=== PATIENT | male | born 1995 | race Two or more races ===

== ENCOUNTER 2019-12-29 08:13 | Emergency (ER) | payer MEDICAID, OTHER ==
[~2019-12-29] VITALS: Ht 180.3 cm; Wt 77.1 kg
[2019-12-29 08:45] LABS: Urine WBC None Seen /hpf (0 - 3)
[2019-12-29 09:18] LABS: Urine Bacteria NONE SEEN /hpf (None Seen); Urine Blood Negative /uL (Negative); Urine Specific Gravity 1.021 (1.001-1.035)
[2019-12-29] MEDS ORDERED: SODIUM CHLORIDE 0.9% 1,000 ML IVB ONE (10:21)
[2019-12-29] MEDS ORDERED: PANTOPRAZOLE 40 MG/10 ML VIAL INJ IV STA (10:21)
[2019-12-29] MEDS ORDERED: ONDANSETRON HCL 4 MG/2 ML VIAL IV ONE (10:30)
[2019-12-29] MEDS ORDERED: MORPHINE SULFATE 4 MG/ML SYR/VIAL IV ONE (10:30)
[2019-12-29 11:54] LABS: Albumin 4.1 g/dL (3.4-5.0); Calcium 9.3 mg/dL (8.5-10.1); Potassium 4.4 mmol/L (3.5-5.1)
[2019-12-29 11:57] LABS: Bilirubin, Total 0.7 mg/dL (0.2-1.0); Total Protein 7.7 g/dL (6.4-8.2)
[2019-12-29 12:41] LABS: Basophils # (auto) 0.1 10 ^3/uL (0-0.2); Basophils % (auto) 0.5 % (0.0-2.0); Eosinophils # (auto) 0 10 ^3/uL (0-0.8); Eosinophils % (auto) 0.3 % (0.0-7.0); Hematocrit 47.3 % (41.0-53.0); Hemoglobin 16.1 g/dL (13.5-17.5); Lymphocytes % (auto) 7.6 % (10.0-50.0); Mean Corpuscular Hemoglobin 30.9 pg (28.0-32.0); Mean Corpuscular Volume 90.8 fL (80.0-100.0); Monocytes # (auto) 1.2 10 ^3/uL (0-1.3); Monocytes % (auto) 9.1 % (0.0-12.0); Neutrophils % (auto) 82.5 % (37.0-80.0); Nucleated Red Blood Cells % 0.1 %; Platelet Count (auto) 217 10^3/uL (140-450); Red Cell Distribution Width 13.2 % (11.8-14.3); White Blood Cell 13.3 10^3/uL (4.4-10.8)
[2019-12-29 14:00] VITALS: BP 124/80
== END 2019-12-29 16:15 | disposition home or self-care (01) ==
LOC: ER 08:13
DX: F12.188 Cannabis abuse with other cannabis-induced disorder (principal)
CPT/HCPCS: 36415; 74176; 80053; 80320; 81001; 83690; 85025; 96374; 96375; 99284; C9113; J2270; J2405; J7030

== ENCOUNTER 2020-01-27 07:10 | Emergency (ER) | payer MEDICAID ==
[~2020-01-27] VITALS: Ht 154.9 cm; Wt 68.9 kg
[2020-01-27] MEDS ORDERED: SODIUM CHLORIDE 0.9% 1,000 ML IV ONE (07:24)
[2020-01-27] MEDS ORDERED: PANTOPRAZOLE 40 MG/10 ML VIAL INJ IV ONE (07:30)
[2020-01-27 08:07] LABS: Amphetamine Screen, Urine NEGATIVE (NEGATIVE); Barbiturate Scree,Urine NEGATIVE (NEGATIVE); Benzodiazephine Screen, Urine NEGATIVE (NEGATIVE); Cannabinoid Screen, Urine POSITIVE (NEGATIVE); Cocaine Screen, Urine NEGATIVE (NEGATIVE); Opiate Scree,Urine NEGATIVE (NEGATIVE); Phencyclidine Screen, Urine NEGATIVE (NEGATIVE)
[2020-01-27 08:34] LABS: Basophils # (auto) 0 10 ^3/uL (0-0.2); Basophils % (auto) 0.8 % (0.0-2.0); Eosinophils # (auto) 0.1 10 ^3/uL (0-0.8); Eosinophils % (auto) 2.4 % (0.0-7.0); Hematocrit 48.4 % (41.0-53.0); Hemoglobin 16.7 g/dL (13.5-17.5); Lymphocytes # (auto) 1.5 10 ^3/uL (0.4-5.4); Lymphocytes % (auto) 26.9 % (10.0-50.0); Mean Corpuscular Hemoglobin 31.2 pg (28.0-32.0); Mean Corpuscular Hgb Conc. 34.5 g/dL (32.0-36.0); Mean Corpuscular Volume 90.3 fL (80.0-100.0); Monocytes # (auto) 0.7 10 ^3/uL (0-1.3); Monocytes % (auto) 11.8 % (0.0-12.0); Neutrophils # (auto) 3.3 10 ^3/uL (1.6-8.6); Neutrophils % (auto) 58.1 % (37.0-80.0); Platelet Count (auto) 216 10^3/uL (140-450); Red Blood Cells 5.37 10^6/uL (4.5-5.90); Red Cell Distribution Width 12.8 % (11.8-14.3); White Blood Cell 5.7 10^3/uL (4.4-10.8)
[2020-01-27 08:38] LABS: Albumin 4.2 g/dL (3.4-5.0); Calcium 8.7 mg/dL (8.5-10.1); Potassium 3.8 mmol/L (3.5-5.1)
[2020-01-27 08:42] LABS: BUN/Creatinine Ratio 10.4; Bilirubin, Total 0.3 mg/dL (0.2-1.0); Total Protein 7.9 g/dL (6.4-8.2)
[2020-01-27] MEDS ORDERED: ONDANSETRON HCL 4 MG/2 ML VIAL IV ONE (08:45)
[2020-01-27 08:50] LABS: Urine Bacteria NONE SEEN /hpf (None Seen); Urine Blood Negative /uL (Negative); Urine Specific Gravity 1.012 (1.001-1.035); Urine WBC <1 /hpf (0 - 3)
[2020-01-27 09:32] VITALS: BP 138/97
[2020-01-27] MEDS ORDERED: MORPHINE SULF INJ 2 MG/ML SYRINGE 1ML IV ONE (09:45)
[2020-01-27] MEDS ORDERED: PROCHLORPERAZINE EDISYLATE 5 MG/ML 2ML VIAL IV ONE (09:45)
== END 2020-01-27 10:20 | disposition home or self-care (01) ==
LOC: ER 07:10
DX: K29.70 Gastritis, unspecified, without bleeding (principal); E86.0 Dehydration; F12.90 Cannabis use, unspecified, uncomplicated
CPT/HCPCS: 36415; 74176; 80053; 80307; 81001; 83690; 85025; 96361; 96374; 96375; 99284; C9113; J0780; J2270; J2405

== ENCOUNTER → 2020-02-14 | Emergency (ER) | payer MEDICAID ==
[~2020-02-14] VITALS: Ht 180.3 cm; Wt 69.4 kg
[2020-02-14 02:04] VITALS: BP 149/99
== END | disposition left against medical advice (07) ==
LOC: ER 01:53
DX: R51 Headache (principal); Z53.21 Procedure and treatment not carried out due to patient leaving prior to being seen by health care provider
CPT/HCPCS: 70450; 70486; 72125

== ENCOUNTER 2020-03-03 15:02 | Emergency (ER) | payer MEDICAID ==
[~2020-03-03] VITALS: Ht 180.3 cm; Wt 70.8 kg
[2020-03-03 15:22] VITALS: BP 138/87
[2020-03-03 15:58] LABS: Basophils # (auto) 0 10 ^3/uL (0-0.2); Basophils % (auto) 0.6 % (0.0-2.0); Eosinophils # (auto) 0.1 10 ^3/uL (0-0.8); Eosinophils % (auto) 0.7 % (0.0-7.0); Hemoglobin 16.6 g/dL (13.5-17.5); Lymphocytes # (auto) 1.1 10 ^3/uL (0.4-5.4); Lymphocytes % (auto) 13.8 % (10.0-50.0); Mean Corpuscular Hgb Conc. 33.9 g/dL (32.0-36.0); Mean Corpuscular Volume 91.5 fL (80.0-100.0); Monocytes # (auto) 1.2 10 ^3/uL (0-1.3); Monocytes % (auto) 14.4 % (0.0-12.0); Neutrophils # (auto) 5.7 10 ^3/uL (1.6-8.6); Neutrophils % (auto) 70.5 % (37.0-80.0); Nucleated Red Blood Cells % 0.4 %; Platelet Count (auto) 248 10^3/uL (140-450); Red Blood Cells 5.36 10^6/uL (4.5-5.90); Red Cell Distribution Width 12.8 % (11.8-14.3)
[2020-03-03 16:14] LABS: Calcium 9.5 mg/dL (8.5-10.1); Potassium 3.8 mmol/L (3.5-5.1)
[2020-03-03 16:17] LABS: BUN/Creatinine Ratio 6.4; Bilirubin, Total 0.9 mg/dL (0.2-1.0); Total Protein 7.8 g/dL (6.4-8.2)
== END 2020-03-03 17:36 | disposition home or self-care (01) ==
LOC: ER 15:02
DX: K52.9 Noninfective gastroenteritis and colitis, unspecified (principal); Z88.8 Allergy status to other drugs, medicaments and biological substances; Z90.49 Acquired absence of other specified parts of digestive tract
CPT/HCPCS: 36415; 74176; 80053; 82150; 83690; 85025

== ENCOUNTER 2020-03-05 05:17 | Inpatient (IN) | payer MEDICAID ==
[~2020-03-05] VITALS: Ht 157.5 cm; Wt 77.1 kg
[2020-03-05] MEDS ORDERED: ONDANSETRON HCL 4 MG/2 ML VIAL IV ONE (06:15)
[2020-03-05] MEDS ORDERED: SODIUM CHLORIDE 0.9% 1,000 ML IV ONE (06:15)
[2020-03-05] MEDS ORDERED: MORPHINE SULFATE 4 MG/ML SYR/VIAL IV ONE (06:15)
[2020-03-05 06:29] LABS: Basophils # (auto) 0 10 ^3/uL (0-0.2); Basophils % (auto) 0.3 % (0.0-2.0); Eosinophils # (auto) 0.1 10 ^3/uL (0-0.8); Eosinophils % (auto) 0.8 % (0.0-7.0); Hematocrit 48.9 % (41.0-53.0); Hemoglobin 16.4 g/dL (13.5-17.5); Lymphocytes # (auto) 1.2 10 ^3/uL (0.4-5.4); Lymphocytes % (auto) 9.1 % (10.0-50.0); Mean Corpuscular Hemoglobin 30.1 pg (28.0-32.0); Mean Corpuscular Hgb Conc. 33.5 g/dL (32.0-36.0); Mean Corpuscular Volume 89.7 fL (80.0-100.0); Monocytes # (auto) 1.3 10 ^3/uL (0-1.3); Monocytes % (auto) 9.9 % (0.0-12.0); Neutrophils # (auto) 10.1 10 ^3/uL (1.6-8.6); Neutrophils % (auto) 79.9 % (37.0-80.0); Nucleated Red Blood Cells % 0.2 %; Platelet Count (auto) 249 10^3/uL (140-450); Red Blood Cells 5.45 10^6/uL (4.5-5.90); Red Cell Distribution Width 12.8 % (11.8-14.3); White Blood Cell 12.6 10^3/uL (4.4-10.8)
[2020-03-05 07:04] LABS: Blood Urea Nitrogen 10 mg/dL (7-18); Chloride 102 mmol/L (98-107); Glucose 106 mg/dL (74-106); Sodium 136 mmol/L (136-145)
[2020-03-05 07:13] LABS: Alanine Aminotransferase 61 U/L (16-61); Alkaline Phosphatase 95 U/L (45-117); Amylase 76 U/L (25-115); Anion Gap 12 (5-15); Aspartate Aminotransferase 26 U/L (15-37); BUN/Creatinine Ratio 12.5; Bilirubin, Total 0.4 mg/dL (0.2-1.0); Carbon Dioxide 22 mmol/L (21-32); GFR African American 153 mL/min; GFR Non-African American 126 mL/min; Lipase 79 U/L (73-393); Magnesium 2.4 mg/dL (1.6-2.6); Total Protein 7.6 g/dL (6.4-8.2)
[2020-03-05 07:29] LABS: Potassium 3.3 mmol/L (3.5-5.1)
[2020-03-05] MEDS ORDERED: cefTRIAXone 1GM/50ML D5W 50 ML IV ONE (08:15)
[2020-03-05] MEDS ORDERED: metroNIDAZOLE 500MG/100ML 100 ML IV ONE (08:15)
[2020-03-05] MEDS ORDERED: PROMETHAZINE HCL 25 MG/ML 1ML IV ONE (08:30)
[2020-03-05] MEDS ORDERED: POTASSIUM EFFERVESENT TAB 25 MEQ PO ONE (08:30)
[2020-03-05] MEDS ORDERED: MORPHINE SULF INJ 2 MG/ML SYRINGE 1ML IV PRN (09:15)
[2020-03-05] MEDS ORDERED: NITROGLYCERIN 0.4 MG SL TAB SL PRN (09:15)
[2020-03-05] MEDS ORDERED: THIAMINE 100mg/ml INJ (200mg/2ml VIAL) IV ONE (09:45)
[2020-03-05] MEDS ORDERED: LORazepam 2MG/ML-1ML VIAL IV PRN (09:45)
[2020-03-05] MEDS ORDERED: chlordiazePOXIDE HCL 25 MG CAP PO PRN (09:45)
[2020-03-05] MEDS ORDERED: ACETAMINOPHEN 500 MG TAB PO PRN (09:45)
[2020-03-05] MEDS: PANTOPRAZOLE 40 MG TAB PO SCH (11:00)
[2020-03-05] MEDS: THIAMINE 100mg/ml INJ (200mg/2ml VIAL) IV SCH (11:00)
[2020-03-05] MEDS: SOD CHL 0.9%/ KCL 40MEQ 1,000 ML IV SCH ×2 (11:00→17:36)
[2020-03-05] MEDS: MORPHINE SULF INJ 2 MG/ML SYRINGE 1ML IV PRN ×4 (11:01→23:39)
[2020-03-05] MEDS: PROMETHAZINE HCL 25 MG/ML 1ML IV PRN ×3 (11:01→21:35)
[2020-03-05 11:49] VITALS: BP 134/79
[2020-03-05] MEDS: chlordiazePOXIDE HCL 5 MG CAP PO SCH ×3 (12:25→23:50)
[2020-03-05 13:00] VITALS: BP 113/52
[2020-03-05] MEDS: metroNIDAZOLE 500MG/100ML 100 ML IV SCH ×2 (14:00→21:43)
[2020-03-05 16:24] LABS: Urine Bacteria NONE SEEN /hpf (None Seen); Urine Blood Negative /uL (Negative); Urine Specific Gravity 1.019 (1.001-1.035); Urine WBC <1 /hpf (0 - 3)
[2020-03-05 17:00] VITALS: BP 102/48
[2020-03-05 21:00] VITALS: BP 122/69
[2020-03-05] MEDS: traMADol HCL 50 MG TAB PO PRN (21:35)
[2020-03-06] MEDS: SOD CHL 0.9%/ KCL 40MEQ 1,000 ML IV SCH ×3 (02:02→17:47)
[2020-03-06] MEDS: MORPHINE SULF INJ 2 MG/ML SYRINGE 1ML IV PRN ×5 (03:44→20:04)
[2020-03-06 05:00] VITALS: BP 121/83
[2020-03-06] MEDS: metroNIDAZOLE 500MG/100ML 100 ML IV SCH ×3 (05:38→22:04)
[2020-03-06] MEDS ORDERED: HYDR-4902 PO (05:43)
[2020-03-06] MEDS ORDERED: ONDA-188 PO (05:43)
[2020-03-06] MEDS ORDERED: PANT40T PO (05:43)
[2020-03-06 05:55] LABS: Basophils # (auto) 0 10 ^3/uL (0-0.2); Basophils % (auto) 0.3 % (0.0-2.0); Eosinophils # (auto) 0.1 10 ^3/uL (0-0.8); Eosinophils % (auto) 1.3 % (0.0-7.0); Hematocrit 45.8 % (41.0-53.0); Hemoglobin 15.7 g/dL (13.5-17.5); Lymphocytes # (auto) 1.1 10 ^3/uL (0.4-5.4); Lymphocytes % (auto) 15.7 % (10.0-50.0); Mean Corpuscular Hemoglobin 31.3 pg (28.0-32.0); Mean Corpuscular Hgb Conc. 34.4 g/dL (32.0-36.0); Monocytes % (auto) 14.1 % (0.0-12.0); Neutrophils # (auto) 4.7 10 ^3/uL (1.6-8.6); Neutrophils % (auto) 68.6 % (37.0-80.0); Nucleated Red Blood Cells % 0.1 %; Platelet Count (auto) 196 10^3/uL (140-450); Red Blood Cells 5.03 10^6/uL (4.5-5.90); Red Cell Distribution Width 12.7 % (11.8-14.3); White Blood Cell 6.9 10^3/uL (4.4-10.8)
[2020-03-06] MEDS: chlordiazePOXIDE HCL 5 MG CAP PO SCH ×4 (06:00→23:27)
[2020-03-06 06:10] LABS: Albumin 3.5 g/dL (3.4-5.0); BUN/Creatinine Ratio 9.1; Calcium 8.8 mg/dL (8.5-10.1)
[2020-03-06 06:11] LABS: Amylase 64 U/L (25-115); Lipase 76 U/L (73-393)
[2020-03-06 06:14] LABS: Bilirubin, Total 0.8 mg/dL (0.2-1.0); Total Protein 6.7 g/dL (6.4-8.2)
[2020-03-06 08:00] VITALS: BP 124/75
[2020-03-06] MEDS: PROMETHAZINE HCL 25 MG/ML 1ML IV PRN (08:25)
[2020-03-06] MEDS: THIAMINE 100mg/ml INJ (200mg/2ml VIAL) IV SCH (08:26)
[2020-03-06] MEDS: PANTOPRAZOLE 40 MG TAB PO SCH ×2 (08:27→22:03)
[2020-03-06] MEDS: cefTRIAXone 1GM/50ML D5W 50 ML IV SCH (08:27)
[2020-03-06 09:00] VITALS: BP 124/75
[2020-03-06 13:00] VITALS: BP 134/72
[2020-03-06] MEDS: HYOSCYAMINE SULF 0.125 MG ODT TAB PO PRN ×2 (13:36→17:48)
[2020-03-06] MEDS: FOLIC ACID 1 MG, MULTIPLE VITAMIN 10 ML, MAGNESIUM SULF SDV 50% 8 MEQ, THIAMINE INJ 100... INJ SCH ×5 (13:47)
[2020-03-06 16:38] VITALS: BP 123/81
[2020-03-06] MEDS: SUCRALFATE 1 GM/10 ML ORAL SUSP PO SCH ×2 (17:47→22:02)
[2020-03-06 21:00] VITALS: BP 124/79
[2020-03-06] MEDS: HYDROmorphone HCL 2 MG/ML VL IV PRN (23:28)
[2020-03-07] MEDS ORDERED: diphenhdrAMINE HCL 25 MG CAP PO ONE (02:30)
[2020-03-07] MEDS: SOD CHL 0.9%/ KCL 40MEQ 1,000 ML IV SCH ×3 (02:47→19:35)
[2020-03-07] MEDS: HYDROmorphone HCL 2 MG/ML VL IV PRN ×4 (04:14→20:08)
[2020-03-07 05:00] VITALS: BP 117/82
[2020-03-07] MEDS: chlordiazePOXIDE HCL 5 MG CAP PO SCH ×3 (05:56→17:48)
[2020-03-07] MEDS: metroNIDAZOLE 500MG/100ML 100 ML IV SCH ×3 (05:56→23:27)
[2020-03-07 05:59] LABS: Basophils # (auto) 0 10 ^3/uL (0-0.2); Basophils % (auto) 0.4 % (0.0-2.0); Eosinophils # (auto) 0.2 10 ^3/uL (0-0.8); Eosinophils % (auto) 3.3 % (0.0-7.0); Hematocrit 48.2 % (41.0-53.0); Hemoglobin 15.9 g/dL (13.5-17.5); Lymphocytes # (auto) 1.7 10 ^3/uL (0.4-5.4); Lymphocytes % (auto) 24.9 % (10.0-50.0); Mean Corpuscular Hemoglobin 30.7 pg (28.0-32.0); Monocytes # (auto) 1.1 10 ^3/uL (0-1.3); Monocytes % (auto) 16.1 % (0.0-12.0); Neutrophils # (auto) 3.7 10 ^3/uL (1.6-8.6); Neutrophils % (auto) 55.3 % (37.0-80.0); Nucleated Red Blood Cells % 0.3 %; Platelet Count (auto) 206 10^3/uL (140-450); Red Blood Cells 5.19 10^6/uL (4.5-5.90); Red Cell Distribution Width 13.3 % (11.8-14.3); White Blood Cell 6.8 10^3/uL (4.4-10.8)
[2020-03-07 06:21] LABS: Calcium 9.2 mg/dL (8.5-10.1); Potassium 3.9 mmol/L (3.5-5.1)
[2020-03-07 06:27] LABS: BUN/Creatinine Ratio 7.9
[2020-03-07] MEDS: HYOSCYAMINE SULF 0.125 MG ODT TAB PO PRN ×2 (07:16→11:47)
[2020-03-07] MEDS: SUCRALFATE 1 GM/10 ML ORAL SUSP PO SCH ×4 (07:16→23:27)
[2020-03-07] MEDS: PANTOPRAZOLE 40 MG TAB PO SCH ×2 (08:45→23:27)
[2020-03-07] MEDS: cefTRIAXone 1GM/50ML D5W 50 ML IV SCH (08:45)
[2020-03-07 08:46] VITALS: BP 126/73
[2020-03-07] MEDS: FOLIC ACID 1 MG, MULTIPLE VITAMIN 10 ML, MAGNESIUM SULF SDV 50% 8 MEQ, THIAMINE INJ 100... INJ SCH ×5 (11:47)
[2020-03-07 13:00] VITALS: BP 133/80
[2020-03-07] MEDS: diphenhdrAMINE HCL 25 MG CAP PO PRN (15:07)
[2020-03-07 16:23] VITALS: BP 132/88
[2020-03-07 22:00] VITALS: BP 136/87
[2020-03-08] MEDS: chlordiazePOXIDE HCL 5 MG CAP PO SCH ×5 (00:27→23:24)
[2020-03-08] MEDS: HYDROmorphone HCL 2 MG/ML VL IV PRN ×6 (00:55→22:35)
[2020-03-08] MEDS: diphenhdrAMINE HCL 25 MG CAP PO PRN ×2 (01:34→23:25)
[2020-03-08] MEDS: SOD CHL 0.9%/ KCL 40MEQ 1,000 ML IV SCH ×3 (03:55→20:34)
[2020-03-08 05:01] VITALS: BP 126/81
[2020-03-08] MEDS: metroNIDAZOLE 500MG/100ML 100 ML IV SCH ×3 (05:28→22:00)
[2020-03-08] MEDS: traMADol HCL 50 MG TAB PO PRN ×2 (05:35→20:21)
[2020-03-08 06:19] LABS: Basophils # (auto) 0 10 ^3/uL (0-0.2); Basophils % (auto) 0.7 % (0.0-2.0); Eosinophils # (auto) 0.2 10 ^3/uL (0-0.8); Eosinophils % (auto) 3.1 % (0.0-7.0); Hematocrit 49.6 % (41.0-53.0); Hemoglobin 16.6 g/dL (13.5-17.5); Lymphocytes # (auto) 1.6 10 ^3/uL (0.4-5.4); Lymphocytes % (auto) 28.8 % (10.0-50.0); Mean Corpuscular Hemoglobin 30.6 pg (28.0-32.0); Mean Corpuscular Hgb Conc. 33.5 g/dL (32.0-36.0); Mean Corpuscular Volume 91.4 fL (80.0-100.0); Monocytes # (auto) 0.8 10 ^3/uL (0-1.3); Monocytes % (auto) 13.7 % (0.0-12.0); Neutrophils # (auto) 3.1 10 ^3/uL (1.6-8.6); Neutrophils % (auto) 53.7 % (37.0-80.0); Nucleated Red Blood Cells % 0.2 %; Platelet Count (auto) 238 10^3/uL (140-450); Red Blood Cells 5.42 10^6/uL (4.5-5.90); Red Cell Distribution Width 12.7 % (11.8-14.3); White Blood Cell 5.7 10^3/uL (4.4-10.8)
[2020-03-08 06:56] LABS: BUN/Creatinine Ratio 7.1; Calcium 9.1 mg/dL (8.5-10.1)
[2020-03-08] MEDS: SUCRALFATE 1 GM/10 ML ORAL SUSP PO SCH ×4 (07:21→22:00)
[2020-03-08 08:25] VITALS: BP 126/69
[2020-03-08 08:34] LABS: Potassium 4.3 mmol/L (3.5-5.1)
[2020-03-08] MEDS: PANTOPRAZOLE 40 MG TAB PO SCH ×2 (09:03→22:00)
[2020-03-08] MEDS: cefTRIAXone 1GM/50ML D5W 50 ML IV SCH (09:03)
[2020-03-08] MEDS: PROMETHAZINE HCL 25 MG/ML 1ML IV PRN ×4 (09:03→22:35)
[2020-03-08] MEDS: FOLIC ACID 1 MG, MULTIPLE VITAMIN 10 ML, MAGNESIUM SULF SDV 50% 8 MEQ, THIAMINE INJ 100... INJ SCH ×5 (12:22)
[2020-03-08 13:00] VITALS: BP 114/70
[2020-03-08 17:00] VITALS: BP 138/81
[2020-03-08 21:58] VITALS: BP 120/67
[2020-03-09] MEDS: SOD CHL 0.9%/ KCL 40MEQ 1,000 ML IV SCH ×3 (03:43→21:35)
[2020-03-09] MEDS: HYDROmorphone HCL 2 MG/ML VL IV PRN ×4 (03:50→22:05)
[2020-03-09] MEDS: PROMETHAZINE HCL 25 MG/ML 1ML IV PRN ×3 (03:50→15:43)
[2020-03-09 05:12] VITALS: BP 137/80
[2020-03-09 05:24] LABS: Basophils # (auto) 0 10 ^3/uL (0-0.2); Basophils % (auto) 0.6 % (0.0-2.0); Eosinophils # (auto) 0.2 10 ^3/uL (0-0.8); Eosinophils % (auto) 4.3 % (0.0-7.0); Hemoglobin 15.8 g/dL (13.5-17.5); Lymphocytes # (auto) 1.5 10 ^3/uL (0.4-5.4); Lymphocytes % (auto) 32.5 % (10.0-50.0); Mean Corpuscular Hemoglobin 32.7 pg (28.0-32.0); Mean Corpuscular Hgb Conc. 35.8 g/dL (32.0-36.0); Mean Corpuscular Volume 91.3 fL (80.0-100.0); Monocytes # (auto) 0.7 10 ^3/uL (0-1.3); Monocytes % (auto) 15.6 % (0.0-12.0); Neutrophils # (auto) 2.2 10 ^3/uL (1.6-8.6); Nucleated Red Blood Cells % 0.4 %; Platelet Count (auto) 236 10^3/uL (140-450); Red Blood Cells 4.82 10^6/uL (4.5-5.90); Red Cell Distribution Width 12.5 % (11.8-14.3); White Blood Cell 4.8 10^3/uL (4.4-10.8)
[2020-03-09 05:40] LABS: Calcium 8.6 mg/dL (8.5-10.1); Potassium 4.4 mmol/L (3.5-5.1)
[2020-03-09 05:42] LABS: BUN/Creatinine Ratio 9.2
[2020-03-09] MEDS: chlordiazePOXIDE HCL 5 MG CAP PO SCH ×4 (06:00→23:34)
[2020-03-09] MEDS: metroNIDAZOLE 500MG/100ML 100 ML IV SCH ×3 (06:00→22:05)
[2020-03-09] MEDS: SUCRALFATE 1 GM/10 ML ORAL SUSP PO SCH ×4 (06:38→22:05)
[2020-03-09 08:00] VITALS: BP 125/73
[2020-03-09 08:48] VITALS: BP 125/73
[2020-03-09] MEDS: cefTRIAXone 1GM/50ML D5W 50 ML IV SCH (08:57)
[2020-03-09] MEDS: PANTOPRAZOLE 40 MG TAB PO SCH ×2 (09:12→22:05)
[2020-03-09] MEDS: FOLIC ACID 1 MG, MULTIPLE VITAMIN 10 ML, MAGNESIUM SULF SDV 50% 8 MEQ, THIAMINE INJ 100... INJ SCH ×5 (12:38)
[2020-03-09 13:00] VITALS: BP 107/42
[2020-03-09 16:36] VITALS: BP 126/81
[2020-03-09 22:00] VITALS: BP 125/65
[2020-03-10 05:00] VITALS: BP 141/84
[2020-03-10] MEDS: SOD CHL 0.9%/ KCL 40MEQ 1,000 ML IV SCH ×2 (05:55→14:15)
[2020-03-10] MEDS: chlordiazePOXIDE HCL 5 MG CAP PO SCH ×3 (06:00→18:27)
[2020-03-10] MEDS: metroNIDAZOLE 500MG/100ML 100 ML IV SCH ×2 (06:00→15:38)
[2020-03-10] MEDS: SUCRALFATE 1 GM/10 ML ORAL SUSP PO SCH ×3 (06:32→18:27)
[2020-03-10] MEDS: HYDROmorphone HCL 2 MG/ML VL IV PRN ×2 (06:32→15:38)
[2020-03-10 06:39] LABS: Basophils # (auto) 0 10 ^3/uL (0-0.2); Basophils % (auto) 0.7 % (0.0-2.0); Eosinophils # (auto) 0.3 10 ^3/uL (0-0.8); Eosinophils % (auto) 6.5 % (0.0-7.0); Hematocrit 45.9 % (41.0-53.0); Lymphocytes # (auto) 1.8 10 ^3/uL (0.4-5.4); Lymphocytes % (auto) 39.6 % (10.0-50.0); Mean Corpuscular Hemoglobin 31.7 pg (28.0-32.0); Mean Corpuscular Hgb Conc. 34.8 g/dL (32.0-36.0); Monocytes # (auto) 0.7 10 ^3/uL (0-1.3); Monocytes % (auto) 15.5 % (0.0-12.0); Neutrophils # (auto) 1.7 10 ^3/uL (1.6-8.6); Neutrophils % (auto) 37.7 % (37.0-80.0); Nucleated Red Blood Cells % 0.1 %; Platelet Count (auto) 238 10^3/uL (140-450); Red Blood Cells 5.04 10^6/uL (4.5-5.90); Red Cell Distribution Width 12.4 % (11.8-14.3); White Blood Cell 4.6 10^3/uL (4.4-10.8)
[2020-03-10 06:51] LABS: Calcium 8.6 mg/dL (8.5-10.1); Potassium 4.1 mmol/L (3.5-5.1)
[2020-03-10 08:00] VITALS: BP 123/71
[2020-03-10] MEDS ORDERED: LIDOCAINE VISCOUS 2% 15ML UD ONE (08:23)
[2020-03-10] MEDS ORDERED: SODIUM CHLORIDE LOCK 10 ML ONE (08:23)
[2020-03-10] MEDS ORDERED: diphenhdrAMINE HCL 50 MG/1 ML VL ONE (08:24)
[2020-03-10 08:55] VITALS: BP 123/71
[2020-03-10 08:55] LABS: INR 1.02 (0.9-1.15); Partial Thromboplastin Time 30.8 sec (23.0-31.2)
[2020-03-10] MEDS: cefTRIAXone 1GM/50ML D5W 50 ML IV SCH (09:06)
[2020-03-10] MEDS: PANTOPRAZOLE 40 MG TAB PO SCH (10:00)
[2020-03-10] MEDS: fentaNYL CITRATE 100 MCG/2 ML VL ONE ×2 (10:48→10:51)
[2020-03-10] MEDS: MIDAZOLAM HCL 5 MG/ML-1ML VIAL ONE ×2 (10:48→10:51)
[2020-03-10] MEDS: FOLIC ACID 1 MG, MULTIPLE VITAMIN 10 ML, MAGNESIUM SULF SDV 50% 8 MEQ, THIAMINE INJ 100... INJ SCH ×5 (12:00)
[2020-03-10 12:59] VITALS: BP 122/67
[2020-03-10] MEDS: PROMETHAZINE HCL 25 MG/ML 1ML IV PRN (13:54)
[2020-03-10 16:39] VITALS: BP 119/64
[2020-03-10 19:46] VITALS: BP 131/85
== END 2020-03-10 20:38 | disposition home or self-care (01) | DRG 241 ==
LOC: ER 05:17 → TELE 05:18 → TELE-WESTW 10:15
PROVIDERS: ADMIT Internal Medicine; ATTEND Internal Medicine
PROC: 0DB68ZX Excision of Stomach, Via Natural or Artificial Opening Endoscopic, Diagnostic (ICD-10-PCS; principal; 2020-03-10 10:45)
DX: K29.20 Alcoholic gastritis without bleeding (principal); K52.9 Noninfective gastroenteritis and colitis, unspecified; K25.9 Gastric ulcer, unspecified as acute or chronic, without hemorrhage or perforation; D72.829 Elevated white blood cell count, unspecified; E87.6 Hypokalemia; F12.90 Cannabis use, unspecified, uncomplicated; E86.0 Dehydration; F10.231 Alcohol dependence with withdrawal delirium; K44.9 Diaphragmatic hernia without obstruction or gangrene; K20.9 Esophagitis, unspecified; Z20.828 Contact with and (suspected) exposure to other viral communicable diseases; Z81.1 Family history of alcohol abuse and dependence; Z83.3 Family history of diabetes mellitus; Z82.61 Family history of arthritis; Z82.49 Family history of ischemic heart disease and other diseases of the circulatory system; F10.239 Alcohol dependence with withdrawal, unspecified
CPT/HCPCS: 36415; 71045; 74021; 74176; 80048; 80053; 81001; 82150; 83690; 83735; 84443; 84484; 85025; 85610; 85652; 85730; 87426; 96361; 96365; 96375; G0378; J0696; J2250; J2405; J3490

== ENCOUNTER 2020-03-12 17:14 | Inpatient (IN) | payer MEDICAID ==
[~2020-03-12] VITALS: Ht 177.8 cm; Wt 73.0 kg
[~2020-03-12 17:14] MED LIST: HYDR-4902 PO; ONDA-188 PO; PANT40T PO
[2020-03-12] MEDS ORDERED: PANTOPRAZOLE 40 MG/10 ML VIAL INJ IV ONE ×2 (17:30→19:30)
[2020-03-12] MEDS ORDERED: SODIUM CHLORIDE 0.9% 1,000 ML IV ONE ×2 (17:30)
[2020-03-12] MEDS ORDERED: THIAMINE 100mg/ml INJ (200mg/2ml VIAL) IV ONE ×2 (17:30→19:30)
[2020-03-12] MEDS ORDERED: ONDANSETRON HCL 4 MG/2 ML VIAL IV ONE (17:45)
[2020-03-12] MEDS ORDERED: MORPHINE SULF INJ 2 MG/ML SYRINGE 1ML IV ONE (17:45)
[2020-03-12 19:19] LABS: Basophils # (auto) 0 10 ^3/uL (0-0.2); Basophils % (auto) 0.6 % (0.0-2.0); Eosinophils # (auto) 0.1 10 ^3/uL (0-0.8); Hemoglobin 16.8 g/dL (13.5-17.5); Lymphocytes # (auto) 1.4 10 ^3/uL (0.4-5.4); Lymphocytes % (auto) 21.1 % (10.0-50.0); Mean Corpuscular Hemoglobin 31.5 pg (28.0-32.0); Mean Corpuscular Hgb Conc. 34.9 g/dL (32.0-36.0); Monocytes # (auto) 0.7 10 ^3/uL (0-1.3); Monocytes % (auto) 9.7 % (0.0-12.0); Neutrophils # (auto) 4.6 10 ^3/uL (1.6-8.6); Neutrophils % (auto) 67.6 % (37.0-80.0); Nucleated Red Blood Cells % 0.1 %; Platelet Count (auto) 258 10^3/uL (140-450); Red Blood Cells 5.34 10^6/uL (4.5-5.90); Red Cell Distribution Width 12.4 % (11.8-14.3); White Blood Cell 6.7 10^3/uL (4.4-10.8)
[2020-03-12] MEDS ORDERED: PROMETHAZINE HCL 25 MG/ML 1ML IV PRN (19:30)
[2020-03-12] MEDS ORDERED: MORPHINE SULF INJ 2 MG/ML SYRINGE 1ML IV PRN ×3 (19:30)
[2020-03-12] MEDS ORDERED: NITROGLYCERIN 0.4 MG SL TAB SL PRN (19:30)
[2020-03-12] MEDS ORDERED: chlordiazePOXIDE HCL 25 MG CAP PO PRN (19:30)
[2020-03-12 19:34] LABS: INR 1.03 (0.9-1.15); Partial Thromboplastin Time 26.4 sec (23.0-31.2)
[2020-03-12 19:37] LABS: Albumin 3.8 g/dL (3.4-5.0); Anion Gap 4 (5-15); Blood Urea Nitrogen 7 mg/dL (7-18); Calcium 9.1 mg/dL (8.5-10.1); Carbon Dioxide 28 mmol/L (21-32); Chloride 108 mmol/L (98-107); Glucose 98 mg/dL (74-106); Lipase 228 U/L (73-393); Potassium 4.3 mmol/L (3.5-5.1); Sodium 140 mmol/L (136-145)
[2020-03-12 19:43] LABS: Alanine Aminotransferase 303 U/L (16-61); Alkaline Phosphatase 89 U/L (45-117); Aspartate Aminotransferase 305 U/L (15-37); BUN/Creatinine Ratio 8.6; Bilirubin, Total 0.3 mg/dL (0.2-1.0); GFR African American 151 mL/min; GFR Non-African American 124 mL/min; Total Protein 7.7 g/dL (6.4-8.2)
--- NOTE | 2020-03-12 20:45 | NUR ---
Telemetry admit from ER Patient admitted to Telemetry unit. Patient oriented to primary RN, unit, room, bed, and unit policies regarding patient care and visiting hours. Patient now on continuous telemetry monitoring, tele box # [id number] and telemetry reading on arrival to unit is sinus rhythm. Patient weighed by bedscale and encouraged to call if they need something. All questions and concerns addressed, patient verbalized understanding. Safety precautions maintained bed is in lowest position and locked and bed rails 2x.
[2020-03-12] MEDS: SODIUM CHLORIDE 0.9% 1,000 ML IV SCH (21:00)
[2020-03-12 22:00] VITALS: BP 116/70
[2020-03-13] VITALS (7 sets, daily range): BP systolic 100–118; BP diastolic 54–71
[2020-03-13 00:43] LABS: Hematocrit 44.3 % (41.0-53.0); Hemoglobin 15.2 g/dL (13.5-17.5)
[2020-03-13] MEDS ORDERED: TEMAZEPAM 15 MG CAP PO PRN (01:00)
[2020-03-13] MEDS: HYDROmorphone HCL 2 MG/ML VL IV PRN ×6 (01:35→22:58)
[2020-03-13 03:41] LABS: Urine Bacteria FEW /hpf (None Seen); Urine Blood Negative /uL (Negative); Urine Mucus FEW (None Seen); Urine Specific Gravity 1.015 (1.001-1.035); Urine Sperm PRESENT /hpf (None Seen); Urine WBC 1 /hpf (0 - 3)
[2020-03-13] MEDS: SODIUM CHLORIDE 0.9% 1,000 ML IV SCH ×2 (05:36→16:05)
[2020-03-13 06:46] LABS: Hematocrit 42.5 % (41.0-53.0); Hemoglobin 14.9 g/dL (13.5-17.5)
[2020-03-13 07:02] LABS: Amylase 86 U/L (25-115); Lipase 160 U/L (73-393)
--- NOTE | 2020-03-13 07:18 | NUR ---
End of Shift Note Endorsed care to dayshift RN. At this time patient has no s/s of distress or SOB.
--- NOTE | 2020-03-13 07:45 | NUR ---
Opening Shift Note Assumed care of patient, awake and alert A/O x 4. No S/S of distress/SOB complain of pain. Bed locked and lowered call light in reach. Instructed on POC and to call for assist PRN, will continue to monitor for changes Q1hr and PRN.
[2020-03-13] MEDS: PANTOPRAZOLE 40 MG/10 ML VIAL INJ IV SCH ×2 (10:19→21:26)
[2020-03-13] MEDS: THIAMINE 100mg/ml INJ (200mg/2ml VIAL) IV SCH (10:21)
[2020-03-13] MEDS ORDERED: ALBUTEROL SULF 2.5 MG/0.5ML(0.5%) NEB SOLN NEB PRN (12:00)
[2020-03-13 12:15] LABS: Hematocrit 43.4 % (41.0-53.0); Hemoglobin 15.1 g/dL (13.5-17.5)
[2020-03-13] MEDS: SUCRALFATE 1 GM/10 ML ORAL SUSP PO SCH ×3 (12:57→21:26)
[2020-03-13] MEDS: LORazepam 2MG/ML-1ML VIAL IV PRN ×3 (12:57→21:26)
[2020-03-14] MEDS: SODIUM CHLORIDE 0.9% 1,000 ML IV SCH ×2 (01:30→11:18)
[2020-03-14] MEDS: LORazepam 2MG/ML-1ML VIAL IV PRN ×3 (02:30→11:32)
[2020-03-14] MEDS: HYDROmorphone HCL 2 MG/ML VL IV PRN ×3 (03:57→12:43)
[2020-03-14 05:04] VITALS: BP 100/61
[2020-03-14 06:37] LABS: Basophils # (auto) 0 10 ^3/uL (0-0.2); Basophils % (auto) 0.7 % (0.0-2.0); Eosinophils # (auto) 0.3 10 ^3/uL (0-0.8); Eosinophils % (auto) 4.4 % (0.0-7.0); Hematocrit 45.5 % (41.0-53.0); Hemoglobin 15.4 g/dL (13.5-17.5); Lymphocytes # (auto) 1.8 10 ^3/uL (0.4-5.4); Lymphocytes % (auto) 30.3 % (10.0-50.0); Mean Corpuscular Hemoglobin 31.7 pg (28.0-32.0); Mean Corpuscular Hgb Conc. 33.9 g/dL (32.0-36.0); Mean Corpuscular Volume 93.6 fL (80.0-100.0); Monocytes # (auto) 0.8 10 ^3/uL (0-1.3); Monocytes % (auto) 13.3 % (0.0-12.0); Neutrophils % (auto) 51.3 % (37.0-80.0); Nucleated Red Blood Cells % 0.1 %; Platelet Count (auto) 244 10^3/uL (140-450); Red Blood Cells 4.87 10^6/uL (4.5-5.90); Red Cell Distribution Width 12.5 % (11.8-14.3); White Blood Cell 5.9 10^3/uL (4.4-10.8)
[2020-03-14 06:54] LABS: Potassium 3.7 mmol/L (3.5-5.1)
[2020-03-14 07:04] LABS: Calcium 8.5 mg/dL (8.5-10.1)
[2020-03-14] MEDS: SUCRALFATE 1 GM/10 ML ORAL SUSP PO SCH ×2 (07:07→11:18)
--- NOTE | 2020-03-14 07:20 | NUR ---
End of Shift Note Endorsed care to dayshift RN. At this time patient has no s/s of distress or SOB.
--- NOTE | 2020-03-14 08:00 | NUR ---
Received pt resting in bed, call light within reach, pt reports pain to mid to rt abdomen 02/26, pt requested pain medication, will medicate pt as ordered.
[2020-03-14 09:00] VITALS: BP 104/59
[2020-03-14] MEDS: PANTOPRAZOLE 40 MG/10 ML VIAL INJ IV SCH (09:34)
[2020-03-14] MEDS: THIAMINE 100mg/ml INJ (200mg/2ml VIAL) IV SCH (09:35)
[2020-03-14 13:00] VITALS: BP 115/71
--- NOTE | 2020-03-14 14:55 | NUR ---
Dr. Mukherjee a bed side to see pt, doctor discussed the plan of care with pt.
--- NOTE | 2020-03-14 15:10 | NUR ---
As per Dr. Mukherjee pt can be d/c after he is able to tolerated his soft diet dinner, pt requested to be d/c now, pt stated that he has eaten soft food already and he is able to tolerated. Informed doctor, as per doctor it is ok to d/c pt now.
[2020-03-14 15:20] VITALS: BP 115/71
--- NOTE | 2020-03-14 15:50 | NUR ---
Discharge instructions given as ordered. Encourage to follow up with PMD as instructed. All questions and concerns addressed. Patient verbalized understanding. Medication reconciliation form completed and copy given to patient. No home medications held in Pharmacy, and no needed vaccines to be given. IV removed with catheter intact, pressure dressing applied. Telemetry unit returned to ICU. Pt requested to call Dr. Mukherjee to ask if he can have a prescription for sleeping pills. Paged Dr. Mukherjee, waiting for call back. Pt informed.
--- NOTE | 2020-03-14 16:04 | NUR ---
Pt walked out of the hospital, pt refused to wait for the doctor to call back. Patient left with all personal belongings. No distress noted at time of departure.
== END 2020-03-14 16:06 | disposition home or self-care (01) | DRG 241 ==
LOC: ER 17:14 → EDBD 17:14 → TELE 17:15 → TELE-WESTW 20:41
PROVIDERS: ADMIT Internal Medicine; ATTEND Internal Medicine
DX: K29.20 Alcoholic gastritis without bleeding (principal); K70.9 Alcoholic liver disease, unspecified; Y90.6 Blood alcohol level of 120-199 mg/100 ml; K92.0 Hematemesis; E86.0 Dehydration; F12.90 Cannabis use, unspecified, uncomplicated; K44.9 Diaphragmatic hernia without obstruction or gangrene; Z82.49 Family history of ischemic heart disease and other diseases of the circulatory system; Z71.6 Tobacco abuse counseling; Z79.899 Other long term (current) drug therapy; Z84.89 Family history of other specified conditions; Z88.8 Allergy status to other drugs, medicaments and biological substances; Z79.01 Long term (current) use of anticoagulants; Z79.891 Long term (current) use of opiate analgesic; Z90.49 Acquired absence of other specified parts of digestive tract; Z82.61 Family history of arthritis; F10.10 Alcohol abuse, uncomplicated
CPT/HCPCS: 36415; 71045; 74176; 80048; 80053; 80320; 81001; 82150; 83690; 84484; 85014; 85018; 85025; 85045; 85610; 85730; 87081; 94640; C9113; G0378; J2405

== ENCOUNTER 2020-03-16 16:26 | Emergency (ER) | payer MEDICAID ==
[~2020-03-16] VITALS: Ht 180.3 cm; Wt 68.9 kg
[2020-03-16] MEDS ORDERED: PANTOPRAZOLE 40 MG/10 ML VIAL INJ IV STA (16:46)
[2020-03-16] MEDS ORDERED: ONDANSETRON HCL 4 MG/2 ML VIAL IV ONE (17:00)
[2020-03-16] MEDS ORDERED: SODIUM CHLORIDE 0.9% 1,000 ML IVB ONE (17:00)
[2020-03-16] MEDS ORDERED: MORPHINE SULFATE 4 MG/ML SYR/VIAL IV ONE (17:00)
[2020-03-16 18:12] LABS: Basophils # (auto) 0.1 10 ^3/uL (0-0.2); Basophils % (auto) 0.6 % (0.0-2.0); Eosinophils # (auto) 0 10 ^3/uL (0-0.8); Eosinophils % (auto) 0.5 % (0.0-7.0); Hematocrit 46.9 % (41.0-53.0); Hemoglobin 16.4 g/dL (13.5-17.5); Lymphocytes # (auto) 1.5 10 ^3/uL (0.4-5.4); Lymphocytes % (auto) 17.1 % (10.0-50.0); Mean Corpuscular Hemoglobin 31.3 pg (28.0-32.0); Mean Corpuscular Volume 89.4 fL (80.0-100.0); Monocytes # (auto) 0.7 10 ^3/uL (0-1.3); Neutrophils # (auto) 6.3 10 ^3/uL (1.6-8.6); Neutrophils % (auto) 73.8 % (37.0-80.0); Nucleated Red Blood Cells % 0.1 %; Platelet Count (auto) 303 10^3/uL (140-450); Red Blood Cells 5.25 10^6/uL (4.5-5.90); Red Cell Distribution Width 12.5 % (11.8-14.3); White Blood Cell 8.5 10^3/uL (4.4-10.8)
[2020-03-16 18:30] LABS: Albumin 4.1 g/dL (3.4-5.0); Calcium 9.1 mg/dL (8.5-10.1); Potassium 3.8 mmol/L (3.5-5.1)
[2020-03-16 18:35] LABS: Bilirubin, Total 0.8 mg/dL (0.2-1.0); Total Protein 7.8 g/dL (6.4-8.2)
[2020-03-16 22:27] VITALS: BP 118/84
== END 2020-03-16 23:51 | disposition home or self-care (01) ==
LOC: ER 16:26
DX: K29.00 Acute gastritis without bleeding (principal)
CPT/HCPCS: 36415; 80053; 82150; 83690; 85025; 96361; 96374; 96375; 99284; C9113; J2270; J2405; J7030

== ENCOUNTER 2020-05-12 19:55 | Emergency (ER) | payer MEDICAID ==
[~2020-05-12] VITALS: Ht 180.3 cm; Wt 72.6 kg
[2020-05-12 21:23] LABS: Basophils # (auto) 0.1 10 ^3/uL (0-0.2); Basophils % (auto) 0.7 % (0.0-2.0); Eosinophils # (auto) 0.1 10 ^3/uL (0-0.8); Eosinophils % (auto) 1.2 % (0.0-7.0); Hematocrit 50.4 % (41.0-53.0); Hemoglobin 17.6 g/dL (13.5-17.5); Lymphocytes # (auto) 2.3 10 ^3/uL (0.4-5.4); Lymphocytes % (auto) 29.1 % (10.0-50.0); Mean Corpuscular Hemoglobin 31.1 pg (28.0-32.0); Mean Corpuscular Hgb Conc. 34.8 g/dL (32.0-36.0); Mean Corpuscular Volume 89.3 fL (80.0-100.0); Monocytes # (auto) 1.1 10 ^3/uL (0-1.3); Monocytes % (auto) 13.2 % (0.0-12.0); Neutrophils # (auto) 4.5 10 ^3/uL (1.6-8.6); Neutrophils % (auto) 55.8 % (37.0-80.0); Nucleated Red Blood Cells % 0.1 %; Platelet Count (auto) 265 10^3/uL (140-450); Red Blood Cells 5.65 10^6/uL (4.5-5.90); Red Cell Distribution Width 13.3 % (11.8-14.3)
[2020-05-12 21:42] LABS: Albumin 4.8 g/dL (3.4-5.0); BUN/Creatinine Ratio 11.1; Calcium 9.5 mg/dL (8.5-10.1); Potassium 3.7 mmol/L (3.5-5.1)
[2020-05-12 21:45] LABS: Bilirubin, Total 1.6 mg/dL (0.2-1.0); Total Protein 8.7 g/dL (6.4-8.2)
[2020-05-12 22:11] LABS: Urine Bacteria NONE SEEN /hpf (None Seen); Urine Blood Negative /uL (Negative); Urine Mucus MODERATE (None Seen); Urine Specific Gravity 1.034 (1.001-1.035); Urine WBC 2 /hpf (0 - 3)
[2020-05-12 22:44] LABS: Amphetamine Screen, Urine POSITIVE (NEGATIVE); Barbiturate Scree,Urine NEGATIVE (NEGATIVE); Benzodiazephine Screen, Urine NEGATIVE (NEGATIVE); Cannabinoid Screen, Urine POSITIVE (NEGATIVE); Cocaine Screen, Urine NEGATIVE (NEGATIVE); Opiate Scree,Urine POSITIVE (NEGATIVE); Phencyclidine Screen, Urine NEGATIVE (NEGATIVE)
[2020-05-12] MEDS ORDERED: PROMETHAZINE HCL 25 MG/ML 1ML IV ONE (23:00)
[2020-05-12] MEDS ORDERED: FAMOTIDINE (10MG/ML) 2ML VL IV ONE (23:00)
[2020-05-12] MEDS ORDERED: KETOROLAC TROMETH 30 MG/ML 1ML VIAL IV ONE (23:00)
[2020-05-12] MEDS ORDERED: SODIUM CHLORIDE 0.9% 1,000 ML IV ONE (23:00)
[2020-05-12 23:15] VITALS: BP 140/82
== END 2020-05-12 23:35 | disposition home or self-care (01) ==
LOC: ER 19:55
DX: K29.00 Acute gastritis without bleeding (principal)
CPT/HCPCS: 36415; 74176; 80053; 80307; 80320; 81001; 83690; 85025

== ENCOUNTER 2020-05-25 16:51 | Emergency (ER) | payer MEDICAID ==
[~2020-05-25] VITALS: Ht 177.8 cm; Wt 72.6 kg
[2020-05-25] MEDS ORDERED: SODIUM CHLORIDE 0.9% 1,000 ML IVB ONE (18:30)
[2020-05-25] MEDS ORDERED: ONDANSETRON HCL 4 MG/2 ML VIAL IM ONE (18:45)
[2020-05-25] MEDS ORDERED: fentaNYL CITRATE 100 MCG/2 ML VL IV ONE (18:45)
[2020-05-25 20:03] LABS: Basophils # (auto) 0.1 10 ^3/uL (0-0.2); Basophils % (auto) 0.5 % (0.0-2.0); Eosinophils # (auto) 0 10 ^3/uL (0-0.8); Hematocrit 46.5 % (41.0-53.0); Lymphocytes # (auto) 1.5 10 ^3/uL (0.4-5.4); Lymphocytes % (auto) 13.7 % (10.0-50.0); Mean Corpuscular Hemoglobin 30.6 pg (28.0-32.0); Mean Corpuscular Hgb Conc. 34.5 g/dL (32.0-36.0); Mean Corpuscular Volume 88.8 fL (80.0-100.0); Monocytes % (auto) 8.7 % (0.0-12.0); Neutrophils # (auto) 8.6 10 ^3/uL (1.6-8.6); Neutrophils % (auto) 77.1 % (37.0-80.0); Platelet Count (auto) 253 10^3/uL (140-450); Red Blood Cells 5.24 10^6/uL (4.5-5.90); White Blood Cell 11.1 10^3/uL (4.4-10.8)
[2020-05-25 20:17] LABS: INR 1.07 (0.9-1.15)
[2020-05-25 20:21] LABS: Albumin 4.5 g/dL (3.4-5.0); BUN/Creatinine Ratio 9.9; Calcium 8.7 mg/dL (8.5-10.1); Potassium 3.2 mmol/L (3.5-5.1)
[2020-05-25 20:28] LABS: Bilirubin, Total 0.8 mg/dL (0.2-1.0); Total Protein 8.1 g/dL (6.4-8.2)
[2020-05-25 20:33] LABS: Lactic Acid w/Reflex 2.2 mmol/L (0.4-2.0)
[2020-05-25] MEDS ORDERED: PANTOPRAZOLE 40 MG/10 ML VIAL INJ IV ONE (22:00)
[2020-05-26] MEDS ORDERED: IOHEXOL 300 MG/ML 100ML BOTTLE IJ ONE (00:13)
[2020-05-26 01:41] LABS: Urine Bacteria FEW /hpf (None Seen); Urine Blood Negative /uL (Negative); Urine Mucus FEW (None Seen); Urine Specific Gravity 1.026 (1.001-1.035); Urine WBC 2 /hpf (0 - 3)
[2020-05-26] MEDS ORDERED: SODIUM CHLORIDE 0.9% 1,000 ML IV ONE (02:00)
[2020-05-26] MEDS ORDERED: fentaNYL CITRATE 100 MCG/2 ML VL IV ONE (02:30)
[2020-05-26] MEDS ORDERED: cefTRIAXone 1GM/50ML D5W 50 ML IV ONE (03:15)
[2020-05-26 05:14] VITALS: BP 133/88
== END 2020-05-26 05:18 | disposition home or self-care (01) ==
LOC: ER 16:52
DX: N39.0 Urinary tract infection, site not specified (principal)
CPT/HCPCS: 36415; 74018; 74177; 80053; 81001; 83605; 83690; 85025; 85610; 87040; 87086; 96361; 96365; 96372; 96375; 96376; 99285; C9113; J0696; J2405; J3010; Q9967

== ENCOUNTER 2021-04-12 10:08 | Emergency (ER) | payer MEDICAID ==
[~2021-04-12] VITALS: Ht 177.8 cm; Wt 75.7 kg
[~2021-04-12 10:08] MED LIST changes: -HYDR-4902 PO; +ONDA-144 PO; +SUCR1TAB22 PO
[2021-04-12 10:53] LABS: Basophils # (auto) 0.1 10 ^3/uL (0-0.2); Basophils % (auto) 0.8 % (0.0-2.0); Eosinophils # (auto) 0.1 10 ^3/uL (0-0.8); Eosinophils % (auto) 0.8 % (0.0-7.0); Hemoglobin 16.1 g/dL (13.5-17.5); Lymphocytes # (auto) 1.4 10 ^3/uL (0.4-5.4); Lymphocytes % (auto) 16.6 % (10.0-50.0); Mean Corpuscular Hemoglobin 31.9 pg (28.0-32.0); Mean Corpuscular Volume 91.2 fL (80.0-100.0); Monocytes # (auto) 0.6 10 ^3/uL (0-1.3); Monocytes % (auto) 7.2 % (0.0-12.0); Neutrophils # (auto) 6.1 10 ^3/uL (1.6-8.6); Neutrophils % (auto) 74.6 % (37.0-80.0); Nucleated Red Blood Cells % 0.1 %; Red Blood Cells 5.04 10^6/uL (4.5-5.90); White Blood Cell 8.1 10^3/uL (4.4-10.8)
[2021-04-12 11:23] LABS: Chloride 108 mmol/L (98-107); Sodium 137 mmol/L (136-145)
[2021-04-12 11:41] LABS: Alanine Aminotransferase 43 U/L (16-61); Albumin 3.9 g/dL (3.4-5.0); Alkaline Phosphatase 81 U/L (45-117); Anion Gap 5 (5-15); Aspartate Aminotransferase 26 U/L (15-37); BUN/Creatinine Ratio 13.6; Bilirubin, Total 0.5 mg/dL (0.2-1.0); Blood Urea Nitrogen 11 mg/dL (7-18); Calcium 8.6 mg/dL (8.5-10.1); Carbon Dioxide 24 mmol/L (21-32); Creatine Kinase IFCC 95 U/L (39-308); GFR African American 149 mL/min; GFR Non-African American 123 mL/min; Glucose 93 mg/dL (74-106); Total Protein 7.6 g/dL (6.4-8.2)
[2021-04-12 15:20] VITALS: BP 138/82
== END 2021-04-12 15:24 | disposition home or self-care (01) ==
LOC: ER 10:08
DX: R07.89 Other chest pain (principal); K29.00 Acute gastritis without bleeding; R42 Dizziness and giddiness; R06.02 Shortness of breath; Z90.49 Acquired absence of other specified parts of digestive tract; Z79.899 Other long term (current) drug therapy; Z88.8 Allergy status to other drugs, medicaments and biological substances
CPT/HCPCS: 36415; 71046; 80053; 82550; 83880; 84484; 85025; 93005

== ENCOUNTER 2021-08-30 12:12 | Emergency (ER) | payer MEDICAID ==
[~2021-08-30] VITALS: Ht 177.8 cm; Wt 73.5 kg
[2021-08-30 14:09] LABS: Basophils # (auto) 0.1 10 ^3/uL (0-0.2); Basophils % (auto) 1.9 % (0.0-2.0); Eosinophils # (auto) 0.1 10 ^3/uL (0-0.8); Eosinophils % (auto) 2.8 % (0.0-7.0); Hematocrit 49.2 % (41.0-53.0); Hemoglobin 16.9 g/dL (13.5-17.5); Lymphocytes # (auto) 1.2 10 ^3/uL (0.4-5.4); Lymphocytes % (auto) 23.5 % (10.0-50.0); Mean Corpuscular Hemoglobin 31.2 pg (28.0-32.0); Mean Corpuscular Hgb Conc. 34.3 g/dL (32.0-36.0); Monocytes # (auto) 0.5 10 ^3/uL (0-1.3); Monocytes % (auto) 9.4 % (0.0-12.0); Neutrophils # (auto) 3.3 10 ^3/uL (1.6-8.6); Neutrophils % (auto) 62.4 % (37.0-80.0); Nucleated Red Blood Cells % 0.1 %; Red Cell Distribution Width 12.7 % (11.8-14.3); White Blood Cell 5.2 10^3/uL (4.4-10.8)
[2021-08-30 14:36] LABS: Albumin 4.2 g/dL (3.4-5.0); Anion Gap 2 (5-15); Blood Alcohol < 3.0 mg/dL (0-5); Blood Urea Nitrogen 10 mg/dL (7-18); Calcium 9.2 mg/dL (8.5-10.1); Carbon Dioxide 32 mmol/L (21-32); Chloride 106 mmol/L (98-107); Glucose 97 mg/dL (74-106); Potassium 4.5 mmol/L (3.5-5.1); Sodium 140 mmol/L (136-145)
[2021-08-30 14:42] LABS: Alanine Aminotransferase 73 U/L (16-61); Alkaline Phosphatase 88 U/L (45-117); Aspartate Aminotransferase 30 U/L (15-37); BUN/Creatinine Ratio 10.2; Bilirubin, Total 0.6 mg/dL (0.2-1.0); GFR African American 119 mL/min; GFR Non-African American 98 mL/min; Total Protein 7.6 g/dL (6.4-8.2)
[2021-08-30 15:04] VITALS: BP 135/85
== END 2021-08-30 15:39 | disposition home or self-care (01) ==
LOC: ER 12:12
DX: R55 Syncope and collapse (principal); F10.10 Alcohol abuse, uncomplicated
CPT/HCPCS: 36415; 70450; 74176; 80053; 80320; 84484; 85025; 93005

== ENCOUNTER 2021-10-06 20:32 | Emergency (ER) | payer MEDICAID ==
[~2021-10-06] VITALS: Ht 177.8 cm; Wt 72.6 kg
[2021-10-06 22:39] LABS: Basophils # (auto) 0 10 ^3/uL (0-0.2); Basophils % (auto) 0.7 % (0.0-2.0); Eosinophils # (auto) 0 10 ^3/uL (0-0.8); Eosinophils % (auto) 0.5 % (0.0-7.0); Hematocrit 48.9 % (41.0-53.0); Hemoglobin 17.1 g/dL (13.5-17.5); Lymphocytes # (auto) 1.4 10 ^3/uL (0.4-5.4); Lymphocytes % (auto) 22.1 % (10.0-50.0); Mean Corpuscular Hemoglobin 31.2 pg (28.0-32.0); Mean Corpuscular Volume 89.3 fL (80.0-100.0); Monocytes # (auto) 0.7 10 ^3/uL (0-1.3); Neutrophils # (auto) 4.3 10 ^3/uL (1.6-8.6); Neutrophils % (auto) 66.7 % (37.0-80.0); Nucleated Red Blood Cells % 0.1 %; Red Blood Cells 5.47 10^6/uL (4.5-5.90); Red Cell Distribution Width 12.8 % (11.8-14.3); White Blood Cell 6.5 10^3/uL (4.4-10.8)
[2021-10-06 22:57] LABS: Alanine Aminotransferase 63 U/L (16-61); Albumin 4.3 g/dL (3.4-5.0); Anion Gap 7 (5-15); Aspartate Aminotransferase 38 U/L (15-37); BUN/Creatinine Ratio 8.8; Blood Alcohol < 3.0 mg/dL (0-5); Blood Urea Nitrogen 8 mg/dL (7-18); Calcium 9.4 mg/dL (8.5-10.1); Carbon Dioxide 29 mmol/L (21-32); Chloride 104 mmol/L (98-107); GFR African American 130 mL/min; GFR Non-African American 107 mL/min; Glucose 87 mg/dL (74-106); Lipase 50 U/L (73-393); Potassium 3.8 mmol/L (3.5-5.1); Sodium 140 mmol/L (136-145)
[2021-10-06 23:08] LABS: Alkaline Phosphatase 88 U/L (45-117); Bilirubin, Total 1.2 mg/dL (0.2-1.0); Total Protein 8.3 g/dL (6.4-8.2)
[2021-10-06] MEDS ORDERED: ONDANSETRON ODT 4 MG TAB PO ONE (23:45)
[2021-10-07 00:59] LABS: Urine Bacteria NONE SEEN /hpf (None Seen); Urine Blood Negative /uL (Negative); Urine Hyaline Cast FEW /lpf (0 - 2); Urine Mucus FEW (None Seen); Urine Specific Gravity 1.033 (1.001-1.035); Urine WBC <1 /hpf (0 - 3)
[2021-10-07 01:00] LABS: Amphetamine Screen, Urine NEGATIVE (NEGATIVE); Barbiturate Scree,Urine NEGATIVE (NEGATIVE); Benzodiazephine Screen, Urine NEGATIVE (NEGATIVE); Cannabinoid Screen, Urine POSITIVE (NEGATIVE); Cocaine Screen, Urine NEGATIVE (NEGATIVE); Opiate Scree,Urine NEGATIVE (NEGATIVE); Phencyclidine Screen, Urine NEGATIVE (NEGATIVE)
[2021-10-07] MEDS ORDERED: IOHEXOL 300 MG/ML 100ML BOTTLE IJ ONE (01:40)
[2021-10-07 02:05] LABS: INR 1.04 (0.9-1.15); Partial Thromboplastin Time 29.1 sec (23.6-33.0)
[2021-10-07] MEDS ORDERED: MORPHINE SULFATE 4 MG/ML SYR/VIAL IV ONE (02:30)
[2021-10-07] MEDS ORDERED: ONDANSETRON HCL 4 MG/2 ML VIAL IV ONE (02:45)
[2021-10-07] MEDS ORDERED: ONDA-144 PO (03:38)
[2021-10-07 04:00] VITALS: BP 119/82
== END 2021-10-07 04:05 | disposition home or self-care (01) ==
LOC: ER 20:37
DX: K29.00 Acute gastritis without bleeding (principal); K52.9 Noninfective gastroenteritis and colitis, unspecified; F12.10 Cannabis abuse, uncomplicated
CPT/HCPCS: 36415; 74177; 80053; 80307; 80320; 81001; 83690; 85025; 85610; 85730; 96374; 96375; 99285; J2270; J2405; Q0162; Q9967

== ENCOUNTER 2022-08-10 11:11 | Emergency (ER) | payer MEDICAID ==
[~2022-08-10] VITALS: Ht 180.3 cm; Wt 82.0 kg
[2022-08-10] MEDS ORDERED: MORPHINE SULFATE 4 MG/ML SYR/VIAL IM ONE (12:30)
[2022-08-10] MEDS ORDERED: ONDANSETRON ODT 4 MG TAB PO ONE (13:00)
[2022-08-10 13:04] LABS: Basophils # (auto) 0 10 ^3/uL (0-0.2); Basophils % (auto) 0.3 % (0.0-2.0); Eosinophils # (auto) 0 10 ^3/uL (0-0.8); Eosinophils % (auto) 0.3 % (0.0-7.0); Hematocrit 48.4 % (41.0-53.0); Lymphocytes # (auto) 1.6 10 ^3/uL (0.4-5.4); Lymphocytes % (auto) 17.5 % (10.0-50.0); Mean Corpuscular Hemoglobin 30.5 pg (28.0-32.0); Mean Corpuscular Hgb Conc. 35.1 g/dL (32.0-36.0); Monocytes # (auto) 0.6 10 ^3/uL (0-1.3); Monocytes % (auto) 6.6 % (0.0-12.0); Neutrophils # (auto) 6.9 10 ^3/uL (1.6-8.6); Neutrophils % (auto) 75.3 % (37.0-80.0); Nucleated Red Blood Cells % 0.5 %; Red Blood Cells 5.56 10^6/uL (4.5-5.90); Red Cell Distribution Width 12.9 % (11.8-14.3); White Blood Cell 9.2 10^3/uL (4.4-10.8)
[2022-08-10 13:11] LABS: INR 0.97 (0.9-1.15)
[2022-08-10 13:15] LABS: Albumin 4.5 g/dL (3.4-5.0); BUN/Creatinine Ratio 9.9; Bilirubin, Total 0.7 mg/dL (0.2-1.0); Potassium 3.9 mmol/L (3.5-5.1); Total Protein 7.9 g/dL (6.4-8.2)
[2022-08-10] MEDS ORDERED: PANT40TA2 PO (14:02)
[2022-08-10] MEDS ORDERED: CHL25C PO (14:02)
[2022-08-10] MEDS ORDERED: DICY10CA PO (14:02)
[2022-08-10] MEDS ORDERED: ONDA-144 PO (14:02)
[2022-08-10 14:10] VITALS: BP 128/83
== END 2022-08-10 14:14 | disposition home or self-care (01) ==
LOC: EDBD 11:11 → ER 11:11
DX: K29.00 Acute gastritis without bleeding (principal); F10.139 Alcohol abuse with withdrawal, unspecified; F12.10 Cannabis abuse, uncomplicated; Z88.6 Allergy status to analgesic agent; Y90.8 Blood alcohol level of 240 mg/100 ml or more
CPT/HCPCS: 36415; 74176; 80053; 83690; 85025; 85610; 96372; 99285; J2270; Q0162

== ENCOUNTER 2022-11-19 07:02 | Emergency (ER) | payer MEDICAID ==
[~2022-11-19] VITALS: Ht 177.8 cm; Wt 80.5 kg
[~2022-11-19 07:02] MED LIST changes: +CHL25C PO; +DICY10CA PO; +PANT40TA2 PO
[2022-11-19 07:45] LABS: Basophils # (auto) 0 10 ^3/uL (0-0.2); Basophils % (auto) 0.6 % (0.0-2.0); Eosinophils # (auto) 0.2 10 ^3/uL (0-0.8); Eosinophils % (auto) 2.4 % (0.0-7.0); Hematocrit 47.5 % (41.0-53.0); Hemoglobin 16.5 g/dL (13.5-17.5); Lymphocytes # (auto) 1.5 10 ^3/uL (0.4-5.4); Mean Corpuscular Hemoglobin 30.7 pg (28.0-32.0); Mean Corpuscular Hgb Conc. 34.7 g/dL (32.0-36.0); Mean Corpuscular Volume 88.4 fL (80.0-100.0); Monocytes # (auto) 0.7 10 ^3/uL (0-1.3); Monocytes % (auto) 10.1 % (0.0-12.0); Neutrophils # (auto) 4.8 10 ^3/uL (1.6-8.6); Neutrophils % (auto) 65.9 % (37.0-80.0); Nucleated Red Blood Cells % 0.1 %; Red Blood Cells 5.38 10^6/uL (4.5-5.90); Red Cell Distribution Width 13.1 % (11.8-14.3); White Blood Cell 7.2 10^3/uL (4.4-10.8)
[2022-11-19] MEDS ORDERED: ONDANSETRON HCL 4 MG/2 ML VIAL IV ONE (08:00)
[2022-11-19] MEDS ORDERED: DexAMETHasone SOD PHOS 10MG/1ML VIAL INJ IV ONE (08:00)
[2022-11-19] MEDS ORDERED: FAMOTIDINE (10MG/ML) 2ML VL IV ONE (08:00)
[2022-11-19] MEDS ORDERED: MAALOX PLUS or MAALOX 30 ML PO ONE (08:00)
[2022-11-19 08:07] LABS: INR 0.96 (0.9-1.15); Partial Thromboplastin Time 28.9 sec (24.6-33.4)
[2022-11-19 08:11] LABS: Albumin 4.1 g/dL (3.4-5.0); BUN/Creatinine Ratio 13.3 (10.0-20.0); Magnesium 2.1 mg/dL (1.6-2.6)
[2022-11-19 08:14] LABS: Bilirubin, Total 0.5 mg/dL (0.2-1.0); Total Protein 7.9 g/dL (6.4-8.2)
[2022-11-19] MEDS ORDERED: MORPHINE SULFATE INJ 2 MG/ml SYRG IV ONE ×2 (09:15→11:00)
[2022-11-19] MEDS ORDERED: METOCLOPRAMIDE HCL 5MG/ml INJ 2ml VIAL IV ONE (09:15)
[2022-11-19 10:28] LABS: Urine Bacteria NONE SEEN /hpf (None Seen); Urine Blood Negative /uL (Negative); Urine Mucus FEW (None Seen); Urine Specific Gravity 1.028 (1.001-1.035); Urine WBC 1 /hpf (0 - 3)
[2022-11-19] MEDS ORDERED: [UNRECOGNIZED DRUG - CODE] XX (13:57)
[2022-11-19] MEDS ORDERED: ARTISOL13 RIGHTEYE (13:57)
[2022-11-19] MEDS ORDERED: PRED20TA2 PO (13:57)
[2022-11-19 14:15] VITALS: BP 132/76
== END 2022-11-19 14:34 | disposition home or self-care (01) ==
LOC: ER 07:02
DX: G51.0 Bell's palsy (principal); F12.10 Cannabis abuse, uncomplicated; Z79.899 Other long term (current) drug therapy; Z79.01 Long term (current) use of anticoagulants
CPT/HCPCS: 36415; 71045; 74176; 76705; 80053; 81001; 83735; 83880; 84484; 85025; 85610; 85730; 93005; 96374; 96375; 96376; 99285; J1100; J2270; J2405; J2765; J3490

== ENCOUNTER 2022-12-12 17:53 | Inpatient (IN) | payer MEDICAID ==
[~2022-12-12] VITALS: Ht 177.8 cm; Wt 85.2 kg
[~2022-12-12 17:53] MED LIST changes: +ARTISOL13 RIGHTEYE; +PRED20TA2 PO; +[UNRECOGNIZED DRUG - CODE] XX
[2022-12-12] MEDS ORDERED: SODIUM CHLORIDE 0.9% 1,000 ML IVB ONE (18:15)
[2022-12-12 19:25] LABS: Basophils # (auto) 0 10 ^3/uL (0-0.2); Basophils % (auto) 0.7 % (0.0-2.0); Eosinophils # (auto) 0.1 10 ^3/uL (0-0.8); Eosinophils % (auto) 1.6 % (0.0-7.0); Hematocrit 44.5 % (41.0-53.0); Hemoglobin 15.2 g/dL (13.5-17.5); Lymphocytes # (auto) 1.8 10 ^3/uL (0.4-5.4); Lymphocytes % (auto) 28.2 % (10.0-50.0); Mean Corpuscular Hemoglobin 30.5 pg (28.0-32.0); Mean Corpuscular Hgb Conc. 34.3 g/dL (32.0-36.0); Monocytes # (auto) 0.7 10 ^3/uL (0-1.3); Monocytes % (auto) 10.5 % (0.0-12.0); Neutrophils # (auto) 3.7 10 ^3/uL (1.6-8.6); Nucleated Red Blood Cells % 0.1 %; Red Blood Cells 4.99 10^6/uL (4.5-5.90); Red Cell Distribution Width 12.9 % (11.8-14.3); White Blood Cell 6.3 10^3/uL (4.4-10.8)
[2022-12-12 19:47] LABS: Albumin 3.9 g/dL (3.4-5.0); Magnesium 2.2 mg/dL (1.6-2.6); Potassium 3.4 mmol/L (3.5-5.1)
[2022-12-12 19:51] LABS: BUN/Creatinine Ratio 10.8 (10.0-20.0); Bilirubin, Total 0.6 mg/dL (0.2-1.0); Total Protein 7.2 g/dL (6.4-8.2)
[2022-12-12] MEDS ORDERED: LORazepam 2MG/ML-1ML VIAL IV ONE (20:15)
[2022-12-12] MEDS ORDERED: ONDANSETRON HCL 4 MG/2 ML VIAL IV PRN (21:15)
[2022-12-12] MEDS: SODIUM CHLOR 0.9% PF (SALINE LOCK) 10ML VIAL/SYR IV SCH (21:49)
[2022-12-12] MEDS: chlordiazePOXIDE HCL 25 MG CAP PO SCH (21:53)
[2022-12-13] MEDS: LORazepam 2MG/ML-1ML VIAL IV PRN ×4 (04:20→21:30)
[2022-12-13] MEDS: HYDROcodone-ACET 5/325MG TAB PO PRN ×2 (05:02→23:26)
[2022-12-13 05:12] LABS: Basophils # (auto) 0 10 ^3/uL (0-0.2); Basophils % (auto) 0.6 % (0.0-2.0); Eosinophils # (auto) 0.2 10 ^3/uL (0-0.8); Eosinophils % (auto) 3.3 % (0.0-7.0); Hematocrit 41.1 % (41.0-53.0); Hemoglobin 14.5 g/dL (13.5-17.5); Lymphocytes # (auto) 1.7 10 ^3/uL (0.4-5.4); Lymphocytes % (auto) 29.4 % (10.0-50.0); Mean Corpuscular Hgb Conc. 35.4 g/dL (32.0-36.0); Mean Corpuscular Volume 87.7 fL (80.0-100.0); Monocytes # (auto) 0.6 10 ^3/uL (0-1.3); Monocytes % (auto) 10.8 % (0.0-12.0); Neutrophils # (auto) 3.3 10 ^3/uL (1.6-8.6); Neutrophils % (auto) 55.9 % (37.0-80.0); Red Blood Cells 4.69 10^6/uL (4.5-5.90); Red Cell Distribution Width 12.9 % (11.8-14.3); White Blood Cell 5.8 10^3/uL (4.4-10.8)
[2022-12-13 05:22] LABS: Albumin 3.6 g/dL (3.4-5.0); Calcium 8.2 mg/dL (8.5-10.1); Potassium 3.7 mmol/L (3.5-5.1)
[2022-12-13 05:26] LABS: Bilirubin, Total 0.7 mg/dL (0.2-1.0); Total Protein 6.3 g/dL (6.4-8.2)
[2022-12-13] MEDS: chlordiazePOXIDE HCL 25 MG CAP PO SCH (06:00)
[2022-12-13 06:25] LABS: Amphetamine Screen, Urine NEGATIVE (NEGATIVE); Barbiturate Scree,Urine NEGATIVE (NEGATIVE); Benzodiazephine Screen, Urine POSITIVE (NEGATIVE); Cocaine Screen, Urine NEGATIVE (NEGATIVE); Phencyclidine Screen, Urine NEGATIVE (NEGATIVE)
[2022-12-13] MEDS: SODIUM CHLOR 0.9% PF (SALINE LOCK) 10ML VIAL/SYR IV SCH ×3 (06:25→21:42)
[2022-12-13 06:36] LABS: Cannabinoid Screen, Urine POSITIVE (NEGATIVE); Opiate Scree,Urine NEGATIVE (NEGATIVE)
[2022-12-13] MEDS ORDERED: LORazepam 2MG/ML-1ML VIAL IV PRN (09:30)
[2022-12-13] MEDS: FOLIC ACID 1 MG, MULTIPLE VITAMIN 10 ML, MAGNESIUM SULF SDV 50% 8 MEQ, THIAMINE INJ 100... INJ SCH ×5 (12:00)
[2022-12-13] MEDS ORDERED: ONDANSETRON HCL 4 MG/2 ML VIAL IV PRN (13:45)
[2022-12-13] MEDS ORDERED: ACETAMINOPHEN 500 MG TAB PO PRN (13:45)
[2022-12-13] MEDS: chlordiazePOXIDE HCL 25 MG CAP PO PRN (20:14)
[2022-12-13] MEDS ORDERED: chlordiazePOXIDE HCL 25 MG CAP PO SCH (22:00)
[2022-12-14] MEDS: LORazepam 2MG/ML-1ML VIAL IV PRN ×8 (01:02→23:07)
[2022-12-14] MEDS: chlordiazePOXIDE HCL 25 MG CAP PO PRN ×2 (04:05→19:36)
[2022-12-14] MEDS: SODIUM CHLOR 0.9% PF (SALINE LOCK) 10ML VIAL/SYR IV SCH ×3 (05:38→23:30)
[2022-12-14] MEDS: HYDROcodone-ACET 5/325MG TAB PO PRN (05:49)
[2022-12-14] MEDS ORDERED: LORazepam 2MG/ML-1ML VIAL IV PRN (09:45)
[2022-12-14] MEDS: DOCUSATE SOD 100 MG CAP PO SCH ×2 (10:16→22:00)
[2022-12-14] MEDS: PANTOPRAZOLE 40 MG TAB PO SCH (10:17)
[2022-12-14] MEDS: FOLIC ACID 1 MG, MULTIPLE VITAMIN 10 ML, MAGNESIUM SULF SDV 50% 8 MEQ, THIAMINE INJ 100... INJ SCH ×5 (13:42)
[2022-12-14] MEDS ORDERED: chlordiazePOXIDE HCL 25 MG CAP PO SCH (22:00)
[2022-12-14 23:18] VITALS: BP_SYST 134; BP_SYST 136; BP_DIAS 74; BP_DIAS 76
[2022-12-15] MEDS: LORazepam 2MG/ML-1ML VIAL IV PRN ×2 (02:25→06:57)
[2022-12-15] MEDS: HYDROcodone-ACET 5/325MG TAB PO PRN ×3 (02:32→20:08)
[2022-12-15] MEDS: chlordiazePOXIDE HCL 25 MG CAP PO PRN ×3 (03:34→20:08)
[2022-12-15 05:00] VITALS: BP 127/89
[2022-12-15] MEDS: SODIUM CHLOR 0.9% PF (SALINE LOCK) 10ML VIAL/SYR IV SCH ×3 (05:49→20:09)
[2022-12-15 08:28] VITALS: BP 102/63
[2022-12-15] MEDS ORDERED: MULT-1092 PO (10:46)
[2022-12-15] MEDS ORDERED: FOLI-119 PO (10:46)
[2022-12-15] MEDS ORDERED: LEVE750T3 PO (10:46)
[2022-12-15] MEDS: DOCUSATE SOD 100 MG CAP PO SCH ×2 (10:53→20:09)
[2022-12-15] MEDS: PANTOPRAZOLE 40 MG TAB PO SCH (10:53)
[2022-12-15] MEDS: FOLIC ACID 1 MG, MULTIPLE VITAMIN 10 ML, MAGNESIUM SULF SDV 50% 8 MEQ, THIAMINE INJ 100... INJ SCH ×5 (11:36)
[2022-12-15 12:46] VITALS: BP 131/82
[2022-12-15 16:33] VITALS: BP 112/76
[2022-12-15] MEDS ORDERED: CYCLOBENZAPRINE HCL 10 MG TAB PO ONE (17:30)
[2022-12-15 20:00] VITALS: BP 112/76
[2022-12-15 22:00] VITALS: BP 128/71
[2022-12-15] MEDS: MORPHINE SULFATE INJ 2 MG/ml SYRG IV PRN (22:26)
[2022-12-16 05:00] VITALS: BP 94/58
[2022-12-16] MEDS: SODIUM CHLOR 0.9% PF (SALINE LOCK) 10ML VIAL/SYR IV SCH (05:12)
[2022-12-16] MEDS: chlordiazePOXIDE HCL 25 MG CAP PO PRN (05:12)
[2022-12-16] MEDS: MORPHINE SULFATE INJ 2 MG/ml SYRG IV PRN (05:14)
[2022-12-16 06:05] LABS: Basophils # (auto) 0 10 ^3/uL (0-0.2); Basophils % (auto) 0.7 % (0.0-2.0); Eosinophils # (auto) 0.2 10 ^3/uL (0-0.8); Eosinophils % (auto) 3.2 % (0.0-7.0); Lymphocytes # (auto) 1.7 10 ^3/uL (0.4-5.4); Lymphocytes % (auto) 28.5 % (10.0-50.0); Mean Corpuscular Hemoglobin 31.3 pg (28.0-32.0); Mean Corpuscular Hgb Conc. 35.7 g/dL (32.0-36.0); Mean Corpuscular Volume 87.7 fL (80.0-100.0); Monocytes # (auto) 0.8 10 ^3/uL (0-1.3); Monocytes % (auto) 13.4 % (0.0-12.0); Neutrophils # (auto) 3.2 10 ^3/uL (1.6-8.6); Neutrophils % (auto) 54.2 % (37.0-80.0); Nucleated Red Blood Cells % 0.6 %; Red Blood Cells 4.79 10^6/uL (4.5-5.90); Red Cell Distribution Width 12.8 % (11.8-14.3); White Blood Cell 5.9 10^3/uL (4.4-10.8)
[2022-12-16 06:46] LABS: Potassium 3.5 mmol/L (3.5-5.1)
[2022-12-16 06:47] LABS: Calcium 8.5 mg/dL (8.5-10.1)
[2022-12-16] MEDS ORDERED: chlordiazePOXIDE HCL 25 MG CAP PO SCH (07:00)
[2022-12-16 08:10] VITALS: BP 110/69
[2022-12-16 09:00] VITALS: BP 110/69
[2022-12-16] MEDS ORDERED: FOLIC ACID 1 MG TAB PO SCH (10:00)
[2022-12-16] MEDS ORDERED: THIAMINE HCL 100 MG TAB PO SCH (10:00)
[2022-12-16] MEDS: PANTOPRAZOLE 40 MG TAB PO SCH (11:04)
[2022-12-16] MEDS: DOCUSATE SOD 100 MG CAP PO SCH (11:05)
== END 2022-12-16 11:43 | disposition home or self-care (01) | DRG 53 ==
LOC: ER 17:53 → EDBD 17:53 → TELE 21:21 → TELE-WESTW 12-14 21:33
PROVIDERS: ADMIT Nurse Practitioner Family; ATTEND Nurse Practitioner Acute Care
DX: G40.901 Epilepsy, unspecified, not intractable, with status epilepticus (principal); F10.239 Alcohol dependence with withdrawal, unspecified; K59.00 Constipation, unspecified; Z88.8 Allergy status to other drugs, medicaments and biological substances; Z82.49 Family history of ischemic heart disease and other diseases of the circulatory system; Z87.11 Personal history of peptic ulcer disease; Z83.3 Family history of diabetes mellitus
CPT/HCPCS: 36415; 70450; 70551; 80048; 80053; 80307; 80320; 83735; 85025; 95819; 96361; 96365; G0378; J2405; J7060

== ENCOUNTER 2023-03-20 16:26 | Emergency (ER) | payer MEDICAID ==
[~2023-03-20] VITALS: Ht 180.3 cm; Wt 77.0 kg
[~2023-03-20 16:26] MED LIST changes: +FOLI-119 PO; +LEVE750T3 PO; +MULT-1092 PO
[2023-03-20] MEDS ORDERED: PANTOPRAZOLE 40 MG/10 ML VIAL INJ IV ONE (16:45)
[2023-03-20] MEDS ORDERED: ONDANSETRON HCL 4 MG/2 ML VIAL IV ONE ×2 (16:45→19:45)
[2023-03-20 16:59] LABS: Basophils # (auto) 0.1 10 ^3/uL (0-0.2); Basophils % (auto) 0.7 % (0.0-2.0); Eosinophils # (auto) 0 10 ^3/uL (0-0.8); Eosinophils % (auto) 0.3 % (0.0-7.0); Hematocrit 48.4 % (41.0-53.0); Hemoglobin 16.9 g/dL (13.5-17.5); Lymphocytes # (auto) 1.7 10 ^3/uL (0.4-5.4); Lymphocytes % (auto) 19.1 % (10.0-50.0); Mean Corpuscular Hemoglobin 30.9 pg (28.0-32.0); Mean Corpuscular Hgb Conc. 34.9 g/dL (32.0-36.0); Mean Corpuscular Volume 88.5 fL (80.0-100.0); Neutrophils # (auto) 6.3 10 ^3/uL (1.6-8.6); Neutrophils % (auto) 68.9 % (37.0-80.0); Nucleated Red Blood Cells % 0.2 %; Red Blood Cells 5.47 10^6/uL (4.5-5.90); Red Cell Distribution Width 12.9 % (11.8-14.3); White Blood Cell 9.1 10^3/uL (4.4-10.8)
[2023-03-20 17:20] VITALS: PULSE 80; RESP 16; O2SAT 97
[2023-03-20 17:20] LABS: Alanine Aminotransferase 65 U/L (7-40); Albumin 5.2 g/dL (3.2-4.8); Alkaline Phosphatase 101 U/L (46-116); Anion Gap 5 (5-15); Aspartate Aminotransferase 33 U/L (13-40); BUN/Creatinine Ratio 9.8 (10.0-20.0); Blood Urea Nitrogen 10 mg/dL (9-23); Carbon Dioxide 29 mmol/L (20-30); Chloride 104 mmol/L (98-107); Glucose 81 mg/dL (74-106); Lipase 30 U/L (12-53); Magnesium 1.8 mg/dL (1.6-2.6); Potassium 4.2 mmol/L (3.5-5.1); Sodium 138 mmol/L (136-145)
[2023-03-20 17:21] LABS: Bilirubin, Total 0.8 mg/dL (0.2-1.0); Total Protein 8.1 g/dL (5.7-8.2)
[2023-03-20] MEDS ORDERED: LORazepam 2MG/ML-1ML VIAL IV ONE (17:30)
[2023-03-20] MEDS: MORPHINE SULFATE 4 MG/ML SYR/VIAL IV ONE ×2 (17:30→18:03)
[2023-03-20 19:25] VITALS: PULSE 68; RESP 14; O2SAT 100
[2023-03-20] MEDS ORDERED: HYDROmorphone HCL 2 MG/ML VL/or syr IV ONE (19:45)
[2023-03-20 21:00] LABS: Urine Bacteria NONE SEEN /hpf (None Seen); Urine Blood Negative /uL (Negative); Urine Clarity Clear (Clear); Urine Color Yellow (Yellow); Urine Mucus FEW (None Seen); Urine Protein, UAD 1+ (Negative); Urine Specific Gravity 1.033 (1.001-1.035); Urine Urobilinogen Normal (Negative); Urine WBC <1 /hpf (0 - 3)
[2023-03-20] MEDS ORDERED: diphenhdrAMINE HCL 50 MG/1 ML VL IV ONE (21:15)
[2023-03-20 21:33] VITALS: BP 146/84; PULSE 94; RESP 13; TEMP 97.3; O2SAT 97
== END 2023-03-20 21:53 | disposition home or self-care (01) ==
LOC: ER 16:26
DX: F10.939 Alcohol use, unspecified with withdrawal, unspecified (principal); R10.11 Right upper quadrant pain; R11.2 Nausea with vomiting, unspecified; Z90.49 Acquired absence of other specified parts of digestive tract; Z88.8 Allergy status to other drugs, medicaments and biological substances; Z79.899 Other long term (current) drug therapy; Y90.0 Blood alcohol level of less than 20 mg/100 ml
CPT/HCPCS: 36415; 74176; 76705; 80053; 81001; 83690; 83735; 85025; 96365; 96375; 96376; 99285; C9113; J1170; J1200; J1953; J2060; J2270; J2405; J7060

== ENCOUNTER 2023-04-13 20:05 | Emergency (ER) | payer MEDICAID ==
[~2023-04-13] VITALS: Ht 177.8 cm; Wt 78.6 kg
[2023-04-13 20:15] VITALS: BP 137/92; PULSE 78; RESP 20; O2SAT 99
[2023-04-13 21:08] LABS: Basophils # (auto) 0 10 ^3/uL (0-0.2); Basophils % (auto) 0.8 % (0.0-2.0); Eosinophils # (auto) 0.1 10 ^3/uL (0-0.8); Hematocrit 49.7 % (41.0-53.0); Hemoglobin 16.9 g/dL (13.5-17.5); Lymphocytes # (auto) 1.8 10 ^3/uL (0.4-5.4); Lymphocytes % (auto) 27.6 % (10.0-50.0); Mean Corpuscular Hemoglobin 30.4 pg (28.0-32.0); Mean Corpuscular Volume 89.4 fL (80.0-100.0); Monocytes # (auto) 0.9 10 ^3/uL (0-1.3); Monocytes % (auto) 14.4 % (0.0-12.0); Neutrophils # (auto) 3.6 10 ^3/uL (1.6-8.6); Neutrophils % (auto) 55.2 % (37.0-80.0); Nucleated Red Blood Cells % 0.3 %; Red Blood Cells 5.56 10^6/uL (4.5-5.90); Red Cell Distribution Width 13.1 % (11.8-14.3); White Blood Cell 6.6 10^3/uL (4.4-10.8)
[2023-04-13 21:52] LABS: Alanine Aminotransferase 66 U/L (7-40); Albumin 4.9 g/dL (3.2-4.8); Alkaline Phosphatase 93 U/L (46-116); Anion Gap 5 (5-15); Aspartate Aminotransferase 27 U/L (13-40); BUN/Creatinine Ratio 5.9 (10.0-20.0); Blood Alcohol 3.7 mg/dL (<10); Blood Urea Nitrogen 6 mg/dL (9-23); Calcium 9.5 mg/dL (8.7-10.4); Carbon Dioxide 30 mmol/L (20-30); Chloride 105 mmol/L (98-107); Glucose 87 mg/dL (74-106); Magnesium 1.8 mg/dL (1.6-2.6); Sodium 140 mmol/L (136-145)
[2023-04-13 21:53] LABS: Bilirubin, Total 0.8 mg/dL (0.2-1.0); Total Protein 7.8 g/dL (5.7-8.2)
[2023-04-13 22:29] LABS: Amphetamine Screen, Urine Neg (NEGATIVE); Urine Bacteria NONE SEEN /hpf (None Seen); Urine Blood Negative /uL (Negative); Urine Clarity Clear (Clear); Urine Color Yellow (Yellow); Urine Protein, UAD TRACE (Negative); Urine Specific Gravity 1.022 (1.001-1.035); Urine Urobilinogen Normal (Negative); Urine WBC <1 /hpf (0 - 3); Urine pH 7.5 (5.0-8.0)
[2023-04-13 22:30] LABS: Barbiturate Scree,Urine Neg (NEGATIVE); Benzodiazephine Screen, Urine Neg (NEGATIVE); Cannabinoid Screen, Urine Pos (NEGATIVE); Cocaine Screen, Urine Neg (NEGATIVE); Opiate Scree,Urine Neg (NEGATIVE); Phencyclidine Screen, Urine Neg (NEGATIVE)
[2023-04-14] MEDS ORDERED: LORazepam 2MG/ML-1ML VIAL IM ONE (01:00)
== END 2023-04-14 05:22 | disposition home or self-care (01) ==
LOC: ER 20:05
DX: G40.909 Epilepsy, unspecified, not intractable, without status epilepticus (principal); F12.10 Cannabis abuse, uncomplicated; F10.239 Alcohol dependence with withdrawal, unspecified; Z79.899 Other long term (current) drug therapy; Y90.8 Blood alcohol level of 240 mg/100 ml or more
CPT/HCPCS: 36415; 70450; 80053; 80307; 80320; 81001; 82962; 83735; 85025

== ENCOUNTER 2023-05-08 17:23 | Emergency (ER) | payer MEDICAID ==
[~2023-05-08] VITALS: Ht 182.9 cm; Wt 86.3 kg
[2023-05-08 17:23] VITALS: BP 139/62; RESP 18; O2SAT 96
[2023-05-08 17:36] VITALS: PULSE 97
[2023-05-08 18:26] LABS: Basophils # (auto) 0 10 ^3/uL (0-0.2); Basophils % (auto) 0.6 % (0.0-2.0); Eosinophils # (auto) 0.2 10 ^3/uL (0-0.8); Eosinophils % (auto) 2.5 % (0.0-7.0); Hematocrit 47.9 % (41.0-53.0); Hemoglobin 16.4 g/dL (13.5-17.5); Lymphocytes % (auto) 23.4 % (10.0-50.0); Mean Corpuscular Hemoglobin 30.5 pg (28.0-32.0); Mean Corpuscular Hgb Conc. 34.3 g/dL (32.0-36.0); Mean Corpuscular Volume 88.9 fL (80.0-100.0); Monocytes # (auto) 0.8 10 ^3/uL (0-1.3); Monocytes % (auto) 9.8 % (0.0-12.0); Neutrophils # (auto) 5.4 10 ^3/uL (1.6-8.6); Neutrophils % (auto) 63.7 % (37.0-80.0); Red Blood Cells 5.39 10^6/uL (4.5-5.90); Red Cell Distribution Width 12.9 % (11.8-14.3); White Blood Cell 8.5 10^3/uL (4.4-10.8)
[2023-05-08 18:37] LABS: Alanine Aminotransferase 84 U/L (7-40); Albumin 4.6 g/dL (3.2-4.8); Alkaline Phosphatase 146 U/L (46-116); Anion Gap 12 (5-15); Aspartate Aminotransferase 44 U/L (13-40); BUN/Creatinine Ratio 10.6 (10.0-20.0); Bilirubin, Total 0.5 mg/dL (0.2-1.0); Blood Urea Nitrogen 9 mg/dL (9-23); Carbon Dioxide 23 mmol/L (20-30); Chloride 107 mmol/L (98-107); Glucose 84 mg/dL (74-106); Potassium 3.6 mmol/L (3.5-5.1); Sodium 142 mmol/L (136-145); Total Protein 7.4 g/dL (5.7-8.2)
== END 2023-05-08 20:43 | disposition left against medical advice (07) ==
LOC: EDBD 17:23 → ER 17:23
DX: R56.9 Unspecified convulsions (principal); Z53.21 Procedure and treatment not carried out due to patient leaving prior to being seen by health care provider
CPT/HCPCS: 36415; 70450; 80053; 85025; 93005

== ENCOUNTER 2024-02-13 15:53 | Emergency (ER) | payer MEDICAID ==
[~2024-02-13] VITALS: Ht 177.8 cm; Wt 8.0 kg
[~2024-02-13 15:53] MED LIST changes: -SUCR1TAB22 PO; +SUCR1TAB31 PO
[2024-02-13 16:35] LABS: Basophils # (auto) 0 10 ^3/uL (0-0.2); Basophils % (auto) 0.4 % (0.0-2.0); Eosinophils # (auto) 0 10 ^3/uL (0-0.8); Eosinophils % (auto) 0.1 % (0.0-7.0); Hematocrit 48.7 % (41.0-53.0); Lymphocytes % (auto) 12.5 % (10.0-50.0); Mean Corpuscular Hemoglobin 31.1 pg (28.0-32.0); Mean Corpuscular Hgb Conc. 34.9 g/dL (32.0-36.0); Mean Corpuscular Volume 89.1 fL (80.0-100.0); Monocytes # (auto) 0.5 10 ^3/uL (0-1.3); Monocytes % (auto) 6.1 % (0.0-12.0); Neutrophils # (auto) 6.2 10 ^3/uL (1.6-8.6); Neutrophils % (auto) 80.9 % (37.0-80.0); Nucleated Red Blood Cells % 0.1 %; Platelet Count (auto) 264 10^3/uL (140-450); Red Blood Cells 5.47 10^6/uL (4.5-5.90); White Blood Cell 7.7 10^3/uL (4.4-10.8)
[2024-02-13 16:50] LABS: Alanine Aminotransferase 41 U/L (7-40); Albumin 4.8 g/dL (3.2-4.8); Alkaline Phosphatase 100 U/L (46-116); Anion Gap 8 (5-15); Aspartate Aminotransferase 26 U/L (13-40); BUN/Creatinine Ratio 6.1 (10.0-20.0); Bilirubin, Total 0.8 mg/dL (0.2-1.0); Blood Urea Nitrogen 5 mg/dL (9-23); Calcium 9.8 mg/dL (8.7-10.4); Carbon Dioxide 25 mmol/L (20-30); Chloride 108 mmol/L (98-107); Glucose 120 mg/dL (74-106); Lipase 29 U/L (12-53); Potassium 3.8 mmol/L (3.5-5.1); Sodium 141 mmol/L (136-145); Total Protein 7.7 g/dL (5.7-8.2)
[2024-02-13] MEDS: IOHEXOL 300 MG/ML 100ML BOTTLE IJ ONE (18:59)
[2024-02-13] MEDS: SODIUM CHLORIDE 0.9% 1,000 ML IV ONE (20:57)
[2024-02-13 20:59] VITALS: TEMP 98.4; O2SAT 97
[2024-02-13] MEDS: MORPHINE SULFATE 4 MG/ML SYR/VIAL IV ONE (21:09)
[2024-02-13] MEDS: ONDANSETRON HCL 4 MG/2 ML VIAL IV ONE (21:09)
[2024-02-13 21:39] VITALS: BP 132/84; PULSE 60; RESP 16
[2024-02-13] MEDS ORDERED: HYDR-4902 PO (21:44)
[2024-02-13] MEDS ORDERED: ZOFR4T PO (21:44)
[2024-02-13] MEDS ORDERED: OMEP-335 PO (21:44)
[2024-02-13] MEDS: levETIRAcetam 500 MG TAB PO ONE (21:51)
[2024-02-14 01:37] LABS: Urine Bacteria None Seen /hpf (None Seen)
[2024-02-14 02:19] LABS: Urine Blood Negative /uL (Negative); Urine Clarity Clear (Clear); Urine Color Yellow (Yellow); Urine Protein, UAD TRACE (Negative); Urine Urobilinogen Normal (Negative); Urine WBC 1 /hpf (0 - 3); Urine pH 6.5 (5.0-9.0)
[2024-02-14 02:21] LABS: Urine Specific Gravity < 1.050 (1.001-1.035)
== END 2024-02-13 22:30 | disposition home or self-care (01) ==
LOC: ER 15:53
DX: K20.90 Esophagitis, unspecified without bleeding (principal); F12.90 Cannabis use, unspecified, uncomplicated; Z90.49 Acquired absence of other specified parts of digestive tract; Z86.69 Personal history of other diseases of the nervous system and sense organs; Z79.899 Other long term (current) drug therapy
CPT/HCPCS: 36415; 74177; 80053; 81001; 83605; 83690; 85025; 96361; 96374; 96375; 99285; J2270; J2405; J7030; Q9967

== ENCOUNTER 2024-03-10 17:17 | Emergency (ER) | payer MEDICAID ==
[~2024-03-10] VITALS: Ht 177.8 cm; Wt 70.5 kg
[~2024-03-10 17:17] MED LIST changes: +HYDR-4902 PO; +OMEP-335 PO; +ZOFR4T PO
[2024-03-10 17:19] VITALS: BP 128/80; PULSE 88; RESP 24; O2SAT 96
[2024-03-10 17:53] LABS: Basophils # (auto) 0 10 ^3/uL (0-0.2); Basophils % (auto) 0.5 % (0.0-2.0); Eosinophils # (auto) 0.1 10 ^3/uL (0-0.8); Eosinophils % (auto) 1.8 % (0.0-7.0); Hematocrit 45.3 % (41.0-53.0); Hemoglobin 15.9 g/dL (13.5-17.5); Lymphocytes % (auto) 30.9 % (10.0-50.0); Mean Corpuscular Hemoglobin 31.1 pg (28.0-32.0); Mean Corpuscular Hgb Conc. 35.1 g/dL (32.0-36.0); Mean Corpuscular Volume 88.6 fL (80.0-100.0); Monocytes # (auto) 0.7 10 ^3/uL (0-1.3); Neutrophils # (auto) 3.6 10 ^3/uL (1.6-8.6); Neutrophils % (auto) 55.8 % (37.0-80.0); Nucleated Red Blood Cells % 0.1 %; Platelet Count (auto) 206 10^3/uL (140-450); Red Blood Cells 5.11 10^6/uL (4.5-5.90); Red Cell Distribution Width 12.9 % (11.8-14.3); White Blood Cell 6.5 10^3/uL (4.4-10.8)
[2024-03-10] MEDS: LORazepam 2MG/ML-1ML VIAL IV ONE (17:56)
[2024-03-10 18:06] LABS: Amphetamine Screen, Urine Neg (NEGATIVE); Barbiturate Scree,Urine Neg (NEGATIVE); Benzodiazephine Screen, Urine Neg (NEGATIVE); Cannabinoid Screen, Urine Pos (NEGATIVE); Cocaine Screen, Urine Neg (NEGATIVE); Opiate Scree,Urine Neg (NEGATIVE); Phencyclidine Screen, Urine Neg (NEGATIVE)
[2024-03-10 18:08] LABS: Alanine Aminotransferase 50 U/L (7-40); Albumin 4.4 g/dL (3.2-4.8); Alkaline Phosphatase 103 U/L (46-116); Anion Gap 10 (5-15); Aspartate Aminotransferase 27 U/L (13-40); BUN/Creatinine Ratio 6.9 (10.0-20.0); Blood Alcohol 259.1 mg/dL (<10); Blood Urea Nitrogen 6 mg/dL (9-23); Calcium 9.1 mg/dL (8.7-10.4); Carbon Dioxide 24 mmol/L (20-30); Chloride 108 mmol/L (98-107); Glucose 94 mg/dL (74-106); Potassium 3.4 mmol/L (3.5-5.1); Sodium 142 mmol/L (136-145)
[2024-03-10 18:09] LABS: Bilirubin, Total 0.4 mg/dL (0.2-1.0)
== END 2024-03-10 18:02 | disposition left against medical advice (07) ==
LOC: ER 17:17 → EDBD 17:17 → ER 18:02
DX: G40.909 Epilepsy, unspecified, not intractable, without status epilepticus (principal); F12.10 Cannabis abuse, uncomplicated
CPT/HCPCS: 36415; 80053; 80307; 80320; 82140; 85025

== ENCOUNTER 2025-01-02 01:01 | Inpatient (IN) | payer MEDICAID ==
[2025-01-02] VITALS (68 sets, daily range): BP systolic 88–119; BP diastolic 49–73; PULSE 66–111; RESP 15–18; TEMP 95.5–99.1; O2SAT 96–99
[~2025-01-02] VITALS: Ht 177.8 cm; Wt 90.9 kg
--- NOTE | 2025-01-02 01:12 | ED.PDOC ---
HPI (NEURO) HPI Comments 29 year old male presents to the ED via EMS with a chief complaint of seizures onset today. Per EMS, patient was at home, experienced multiple episodes of seizures, tonic-clonic, lasted about 30-40 seconds would have a 20-30 second break in between seizures. Upon EMS arrival, they witnessed about 3-4 seizures, gave patient 5 mg Versed. He was tachycardic 109 HR, BS 84, O2 sat 97% on 15L. EMS states patient's girlfriend stated patient was recently taken off Keppra by his Neurologist, is unsure as to why. Patient is currently on Topamax. PMHx PID, liver disease, seizure disorder. No other symptoms or modifying factors present at this time. Time Seen by MD: 01:05 Primary Care Provider: unknown Reviewed Notes: Medications, Allergies Information Source: Emergency Med Personnel Mode of Arrival: EMS Severity: Moderate Timing: Hours Duration: Since onset Prehospital treatment: Other (Versed 5 mg) Seizure Quality: Tonic-clonic, Mulitple Episodes Seizure Location: Generalized Onset: At rest Circumstances: Spontaneous Before: Normal History of: Seizure Disorder Modifying factors: Nothing Vital Signs Vital Signs Date Time Temp Pulse Resp B/P (MAP) Pulse Ox O2 Delivery O2 Flow Rate FiO2 01/02/25 07:32 105 16 119/73 (88) 98 50 01/02/25 01:30 97.7 97.7 01/02/25 01:30 Room Air* 0 Physical Exam PHYSICAL EXAM: General: Awake, alert and oriented. No acute distress. Skin: Skin in warm, dry and intact without rashes or lesions. HEENT: The head is normocephalic and atraumatic. Conjunctivae are clear without exudates or hemorrhage. Sclera is non-icteric. PERRLA Neck: Normal range of motion. No JVD. Cardiac: Regular rate Respiratory: No signs of respiratory distress. No Stridor. Extremities: Upper and lower extremities are atraumatic in appearance without deformity. Neurological: Patient is lethargic, becomes more awake and responds to commands. Moving all extremities spontaneously. Psychiatric: Appropriate mood and affect. Good judgement and insight. Witnessed approximately 30 seconds seizure with body stiffening, posturing. Patient altered afterwards. Vital signs stable. Review of Systems: Unable to obtain due to altered mental status Past Medical History PAST MEDICAL HISTORY: Liver, PUD, Seizures Surgical History: Appendectomy Family History Family History: Family hx of DM, Family hx of HTN Family History (Other): History of liver disease Social History Smoker: Non-Smoker Alcohol: Heavy, Occasionally Drugs: Marijuana Lives In: Home Was a procedure done? 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 operator: Name of hand inserter operator (Pradip Turner MD) Indication: Volume resuscitation Room prepared for procedure: Yes Starter Cup Powder Mixer performed hand hygien: Yes Maximal sterile barrier precau: Mask/Eye shield, Sterile gown, Sterlie gloves, Large sterlie drape Skin Preparation: Chlorhexidine gluconate Skin preparation completely dr: Yes Insertion site: Right, Femoral Central line catheter type: Zit-[id number]-[id number] dialysis Number of lumens: 3 Central line exchanged over a: Yes Antiseptic ointment applied to: Yes Post Assessment: Proper placement Informed consent obtained: No Risks/benefits/alt described: No Intubation Indication: Altered Mental Status, Airway Protection Prep: Preoxygenation Pretreated with: Other (Versed and propofol) Medicated with: Other (Rocuronium) Intubation Approach: Orotracheal Intubation size: cm (8) Informed consent obtained: No Risks/benefits/alt described: No Notes Intubation performed by Pradip Turner MD Differential Diagnosis (SZ) Seizure: Other (Differential diagnoses considered include but are not limited to epilepsy/seizure disorder, DRAFTER GEOPHYSICAL infection, electrolyte disturbance, CVA, TBI, drug toxicity or overdose, hypoxia, hypertensive emergency, brain tumor/mass, syncope, movement disorder, other) X-Ray, Labs, Meds, VS Vital Signs Date Time Temp Pulse Resp B/P (MAP) Pulse Ox O2 Delivery O2 Flow Rate FiO2 01/02/25 07:32 105 16 119/73 (88) 98 50 01/02/25 07:30 104/65 01/02/25 06:00 88 15 90/42 (58) 90 01/02/25 04:00 84 01/02/25 04:00 84 16 89/52 (64) 96 01/02/25 02:00 84 18 102/52 (69) 96 01/02/25 01:30 97.7 103 22 118/78 (91) 95 97.7 01/02/25 01:30 103 18 96 Room Air* 0 21 01/02/25 01:05 98.0 126 20 125/85 (98) 98 98.0 Lab Test 01/02/25 07:00 01/02/25 01:30 Range/Units Urine Color Light-yellow Yellow Urine Clarity Clear Clear Urine pH 5.5 5.0-9.0 Urine Specific [place] 1.012 1.001-1.035 Urine Protein Negative Negative Urine Ketones Negative Negative Urine Blood Negative Negative /uL Urine Nitrite Negative Negative Urine Bilirubin Negative Negative Urine Urobilinogen Normal Negative mg/dL Urine Leukocyte Esterase Negative Negative /uL Urine RBC 1 0 - 3 /hpf Urine Microscopic WBC < 1 0-3 /HPF Urine Squamous Epithelial Cells None seen <5 /hpf Urine Uric Acid Crystals Few None Seen /hpf Urine Bacteria None seen None Seen /hpf Urine Glucose Normal Normal mg/dL Urine Opiates Screen Neg NEGATIVE Urine Fentanyl Screen Neg NEGATIVE Urine Barbiturates Screen Neg NEGATIVE Urine Phencyclidine Screen Neg NEGATIVE Urine Amphetamines Screen Neg NEGATIVE Urine Benzodiazepines Screen Pos NEGATIVE Urine Cocaine Screen Neg NEGATIVE Urine Cannabinoids Screen Pos NEGATIVE White Blood Count 8.4 4.4-10.8 10^3/uL Red Blood Count 5.64 4.5-5.90 10^6/uL Hemoglobin 17.0 13.5-17.5 g/dL Hematocrit 49.4 41.0-53.0 % Mean Corpuscular Volume 87.5 80.0-100.0 fL Mean Corpuscular Hemoglobin 30.1 28.0-32.0 pg Mean Corpuscular Hemoglobin Concent 34.4 32.0-36.0 g/dL Red Cell Distribution Width 12.9 11.8-14.3 % Platelet Count 250 140-450 10^3/uL Mean Platelet Volume 8.2 6.9-10.8 fL Neutrophils (%) (Auto) 60.4 37.0-80.0 % Lymphocytes (%) (Auto) 25.4 10.0-50.0 % Monocytes (%) (Auto) 12.6 H 0.0-12.0 % Eosinophils (%) (Auto) 1.0 0.0-7.0 % Basophils (%) (Auto) 0.6 0.0-2.0 % Neutrophils # (Auto) 5.1 1.6-8.6 10 ^3/uL Lymphocytes # (Auto) 2.1 0.4-5.4 10 ^3/uL Monocytes # (Auto) 1.1 0-1.3 10 ^3/uL Eosinophils # (Auto) 0.1 0-0.8 10 ^3/uL Basophils # (Auto) 0.1 0-0.2 10 ^3/uL Nucleated Red Blood Cells 0.1 % Sodium Level 138 136-145 mmol/L Potassium Level 3.1 L 3.5-5.1 mmol/L Chloride Level 101 98-107 mmol/L Carbon Dioxide Level 23 20-31 mmol/L Anion Gap 14 5-15 Blood Urea Nitrogen 11 9-23 mg/dL Creatinine 0.98 0.700-1.30 mg/dL Glomerular Filtration Rate Calc 107 >90 mL/min BUN/Creatinine Ratio 11.2 10.0-20.0 Serum Glucose 99 74-106 mg/dL Calcium Level 9.7 8.7-10.4 mg/dL Total Bilirubin 0.8 0.2-1.0 mg/dL Aspartate Amino Transferase (AST) 36 13-40 U/L Alanine Aminotransferase (ALT) 43 H 7-40 U/L Alkaline Phosphatase 96 46-116 U/L Total Protein 7.4 5.7-8.2 g/dL Albumin 4.7 3.2-4.8 g/dL Plasma/Serum Blood Alcohol 186.8 H <10 mg/dL Current Medications Medications (Trade) Dose Ordered Sig/Monserrat Route Start Time Stop Time Status Last Admin Sodium Chloride 1,000 ml @ 1,000 mls/hr Q1H ONCE IV 01/02/25 01:15 01/02/25 02:14 DC 01/02/25 01:44 Levetiracetam 100 ml @ 400 mls/hr ONCE ONCE IV 01/02/25 01:15 01/02/25 01:29 DC 01/02/25 01:43 Potassium Chloride 100 ml @ 50 mls/hr ONCE ONCE IV 01/02/25 03:00 01/02/25 04:59 DC 01/02/25 03:19 Sodium Chloride 1,000 ml @ 1,000 mls/hr Q1H ONCE IV 01/02/25 03:45 01/02/25 04:44 DC 01/02/25 03:48 Lorazepam (Ativan Inj) 2 mg ONCE ONCE IV 01/02/25 07:45 01/02/25 07:46 DC 01/02/25 07:23 Midazolam HCl (Versed Injection) 10 mg ONCE ONCE IV 01/02/25 08:00 01/02/25 08:01 DC 01/02/25 07:28 Rocuronium [place] 100 mg ONCE ONCE IV 01/02/25 08:00 01/02/25 08:01 DC 01/02/25 07:30 Time of 1ST Reevaluation: 01:35 Reevaluation 1ST: Unchanged Patient Education/Counseling: Need For Follow Up Family Education/Counseling: No Family Present Departure 1 Departure Time of Disposition: 08:05 (Patient was signed out to me by Dr. Mosher. In the morning patient had multiple seizures without return to baseline in between. Patient was in status epilepticus. Patient was emergently intubated and central line placed by me. We will admit patient for further workup and expert consultation) Impression: Primary Impression: Status epilepticus Additional Impressions: Recurrent seizures Alcohol intoxication Qualified Codes: F10.929 - Alcohol use, unspecified with intoxication, unspecified Disposition: ADMITTED INPATIENT Admit to: ICU Condition: Critical Comments MDM: 29-year-old male with a history of seizure disorder, recently taken off of Keppra presents to the ED with multiple seizures today. Patient with witnessed seizure in the emergency department. Keppra and Ativan administered in the ED. Patient admitted to hospitalist service for further treatment, evaluation and monitoring. Extensive evaluation was performed in attempt to identify or rule out: (See differential diagnosis section) The following tests were ordered, and results were reviewed by me and discussed with patient: (See diagnostic results section) The following test were independently interpreted by me: N/A I reviewed and agreed with the following test results read by other providers: N/A I reviewed the following notes from the pt's past medical encounters: N/A Additional information was gathered from interviewing the following independent historians: N/A Discussion of management or test interpretation with external physician/other qualified health youth care worker: N/A Addressed an acute or chronic illness that poses a threat to life or bodily function: Recurrent seizures Decision regarding hospitalization or escalation of hospital level of care: Risk and benefits of admission for further treatment of patient's condition was considered. Due to patient's current clinical condition, high risk of decline and poor outcome if discharged and need for further inpatient management and monitoring, patient will be admitted to the hospital. Drug therapy requiring intensive monitoring for toxicity: IV levetiracetam Parenteral controlled substances: IV lorazepam Decision regarding elective major surgery with identified patient or procedure risk factors: N/A Decision regarding emergency major surgery: N/A Decision not to resuscitate or to de-escalate care because of poor prognosis: N/A Diagnosis or treatment significantly limited by social determinants of health: N/A Critical Care Note Critical Care Time?: Yes Critical care comment: Status epilepticus Authorized and Performed by: Pradip Turner MD Total critical care time: Approximately 49 minutes Due to a high probability of clinically significant, life threatening deter ioration, the patient required my highest level of preparedness to intervene emergently and I personally spent this critical care time directly and personally managing the patient. This critical care time included obtaining a history; examining the patient; pulse oximetry; ordering and review of studies; arranging urgent treatment with development of a management plan; evaluation of patient's response to treatment; frequent reassessment; and, discussions with other providers. This critical care time was performed to assess and manage the high probability of imminent, life-threatening deterioration that could result in multi-organ fa ilure. It was exclusive of separately billable procedures and treating other patients and teaching time. Please see my other sections and the rest of the note for further information on patient assessment and treatment. Stability Stability form required: No I personally scribed for SADAF GALVAN MD ([email or web address]) on 01/02/25 at 01:12. Electronically submitted by Edelmira Knight ([email or web address]). SADAF GALVAN MD Jan 02, 2025 01:12 PRADIP TURNER MD Jan 02, 2025 08:06
[2025-01-02] MEDS: LORazepam 2MG/ML-1ML VIAL ONE ×3 (01:40→08:24)
[2025-01-02] MEDS: levETIRAcetam 1000 mg/100ml 100 ML IV ONE ×2 (01:43→08:06)
[2025-01-02] MEDS: SODIUM CHLORIDE 0.9% 1,000 ML IV ONE ×2 (01:44→03:48)
[2025-01-02 01:50] LABS: Hematocrit 49.4 % (41.0-53.0); Hemoglobin 17.0 g/dL (13.5-17.5); Mean Corpuscular Hemoglobin 30.1 pg (28.0-32.0); Mean Corpuscular Volume 87.5 fL (80.0-100.0); Nucleated Red Blood Cells % 0.1 %
[2025-01-02 02:09] LABS: Albumin 4.7 g/dL (3.2-4.8); Alkaline Phosphatase 96 U/L (46-116); Anion Gap 14 (5-15); BUN/Creatinine Ratio 11.2 (10.0-20.0); Blood Urea Nitrogen 11 mg/dL (9-23); Calcium 9.7 mg/dL (8.7-10.4); Carbon Dioxide 23 mmol/L (20-31); Chloride 101 mmol/L (98-107); Glucose 99 mg/dL (74-106); Sodium 138 mmol/L (136-145); Total Protein 7.4 g/dL (5.7-8.2)
[2025-01-02 02:10] LABS: Alanine Aminotransferase 43 U/L (7-40); Bilirubin, Total 0.8 mg/dL (0.2-1.0); Potassium 3.1 mmol/L (3.5-5.1)
--- NOTE | 2025-01-02 03:13 | DVH ---
EXAM: CT HEAD WITHOUT CONTRAST INDICATION: Recurrent seizure TECHNIQUE: CT of the head without intravenous contrast. Radiation Dose : 1. Head: CT Dose: CTDI volume is 62.77 mGy. Dose-length product is 1236.85 mGy*cm The dose indicators for CT are the volume Computed Tomography (CT) Dose Index (CTDIvol) and the Dose Length Product (DLP), and are measured in units of mGy and mGy-cm, respectively. These indicators are not patient dose, but values generated from the CT scanner acquisition factors. The report includes radiation exposure data for exposures received during this examination. COMPARISON: CT HEAD WITHOUT CONTRAST on DOS: 05/08/23, CT HEAD WITHOUT CONTRAST on DOS: 04/13/23, CT HEAD WITHOUT CONTRAST on DOS: 12/12/22, HEAD WITHOUT CONTRAST on DOS: 08/30/21 FINDINGS: There is no evidence of acute intracranial hemorrhage, extra-axial collection, mass effect, midline s hift, herniation or hydrocephalus. The ventricles, sulci and cisterns are age appropriate. The humphries-white differentiation is intact. The visualized paranasal sinuses and mastoid air cells are clear. The surrounding soft tissues and osseous structures are unremarkable. IMPRESSION: 1. No acute intracranial abnormality. Radiation optimization: All CT scans at this facility use at least one of these dose optimization myra hniques: automated exposure control mA and/or kV adjustment per patient size (includes targeted exam s where dose is matched to clinical indication) or iterative reconstruction.
[2025-01-02] MEDS: POTASSIUM CHL 20MEQ/100ML 100 ML IV ONE ×2 (03:19→15:25)
[2025-01-02] MEDS: LORazepam 2MG/ML-1ML VIAL IV ONE ×2 (07:23→08:20)
[2025-01-02] MEDS: MIDAZOLAM HCL 5 MG/ML-1ML VIAL IV ONE ×2 (07:25→07:28)
[2025-01-02] MEDS: PROPOFOL 10 MG/ML 20 ML IV ONE (07:28)
[2025-01-02] MEDS ORDERED: PROPOFOL 100 ML IV SCH (07:30)
[2025-01-02] MEDS ORDERED: ROCURONIUM 10MG/ML 10ML VIAL IV ONE (07:30)
[2025-01-02] MEDS: ROCURONIUM 10MG/ML 10ML VIAL IV ONE ×3 (07:30→07:43)
[2025-01-02] MEDS: PROPOFOL 100 ML IV SCH (07:34)
[2025-01-02 07:36] LABS: Urine Protein, UAD Negative (Negative)
[2025-01-02 07:48] LABS: Cannabinoid Screen, Urine Pos (NEGATIVE)
[2025-01-02] MEDS: MIDAZOLAM HCL 5 MG/ML-1ML VIAL ONE (07:48)
[2025-01-02 07:50] LABS: Amphetamine Screen, Urine Neg (NEGATIVE); Barbiturate Scree,Urine Neg (NEGATIVE); Benzodiazephine Screen, Urine Pos (NEGATIVE); Cocaine Screen, Urine Neg (NEGATIVE); Opiate Scree,Urine Neg (NEGATIVE); Phencyclidine Screen, Urine Neg (NEGATIVE)
[2025-01-02] MEDS: PROPOFOL 100 ML IV ONE (07:50)
--- NOTE | 2025-01-02 07:57 | DVHHP2 ---
History of Present Illness Reason for Visit: Seizures History of Present Illness Flaco Richardson is a 29-year-old male with past medical history of peptic ulcer disease, hernia, esophagitis, gastroduodenitis with erosions, liver disease, seizures, appendectomy, tobacco use, marijuana use, and alcohol use who presents to the ED with seizures. Per reports patient was at home had multiple episodes of seizures lasting about 30-40 seconds and then another seizure occurred. EMS reports states that they witnessed 3-4 seizures and gave the patient Versed. On examination patient was already intubated and placed on mechanical ventilation by the ER doctor. Reports from the girlfriend stated that patient was recently taken off Keppra by his neurologist but unsure reason why. Called patient's contact Krystyna and unable to reach. 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 SHAMPOOER: Seizure Past Medical History Liver disease PUD Hernia Esophagitis Gastro duodenitis with erosions Past Surgical History: None Family History: DM, Hypertension, Other (Family history of diabetes and hypertension per reports) Smoke: <1 pack per day ALCOHOL: heavy Drugs: Marijuana Lives: with Family Domestic Violence: Neg Review of Systems Neurological: Seizures Allergies: Coded Allergies: Ketorolac Tromethamine (Verified Allergy, Unknown, 11/10/20) Medications Current Medications Medications Dose Ordered Sig/Monserrat Route Start Time Stop Time Status Last Admin Dose Admin Propofol 100 ml @ 2.454 mls/ hr Q24H IV 01/02/25 07:30 Cancel Propofol 100 ml @ 2.454 mls/ hr Q24H IV 01/02/25 08:00 UNV Sodium Chloride 1,000 ml @ 120 mls/hr Q8H20M IV 01/02/25 08:00 UNV Ondansetron HCl 4 mg Q4HP PRN IV 01/02/25 08:00 UNV Acetaminophen 650 mg Q6HP PRN PO 01/02/25 08:00 UNV Nitroglycerin 0.4 mg Q5MINP PRN SL 01/02/25 08:00 UNV Morphine Sulfate 2 mg Q30M PRN IV 01/02/25 08:00 UNV Exam Vital Signs Vital Signs Date Time Temp Pulse Resp B/P (MAP) Pulse Ox O2 Delivery O2 Flow Rate FiO2 01/02/25 06:00 88 15 90/42 (58) 90 01/02/25 01:30 97.7 97.7 01/02/25 01:30 Room Air* 0 21 HEENT: Atraumatic Cardiovascular: Normal S1, Normal S2 Abdominal: Soft Labs/Xrays Labs Test 01/02/25 07:00 01/02/25 01:30 Range/Units Urine Color Light-yellow Yellow Urine Clarity Clear Clear Urine pH 5.5 5.0-9.0 Urine Specific [place] 1.012 1.001-1.035 Urine Protein Negative Negative Urine Ketones Negative Negative Urine Blood Negative Negative /uL Urine Nitrite Negative Negative Urine Bilirubin Negative Negative Urine Urobilinogen Normal Negative mg/dL Urine Leukocyte Esterase Negative Negative /uL Urine RBC 1 0 - 3 /hpf Urine Microscopic WBC < 1 0-3 /HPF Urine Squamous Epithelial Cells None seen <5 /hpf Urine Uric Acid Crystals Few None Seen /hpf Urine Bacteria None seen None Seen /hpf Urine Glucose Normal Normal mg/dL Urine Opiates Screen Neg NEGATIVE Urine Fentanyl Screen Neg NEGATIVE Urine Barbiturates Screen Neg NEGATIVE Urine Phencyclidine Screen Neg NEGATIVE Urine Amphetamines Screen Neg NEGATIVE Urine Benzodiazepines Screen Pos NEGATIVE Urine Cocaine Screen Neg NEGATIVE Urine Cannabinoids Screen Pos NEGATIVE White Blood Count 8.4 4.4-10.8 10^3/uL Red Blood Count 5.64 4.5-5.90 10^6/uL Hemoglobin 17.0 13.5-17.5 g/dL Hematocrit 49.4 41.0-53.0 % Mean Corpuscular Volume 87.5 80.0-100.0 fL Mean Corpuscular Hemoglobin 30.1 28.0-32.0 pg Mean Corpuscular Hemoglobin Concent 34.4 32.0-36.0 g/dL Red Cell Distribution Width 12.9 11.8-14.3 % Platelet Count 250 140-450 10^3/uL Mean Platelet Volume 8.2 6.9-10.8 fL Neutrophils (%) (Auto) 60.4 37.0-80.0 % Lymphocytes (%) (Auto) 25.4 10.0-50.0 % Monocytes (%) (Auto) 12.6 H 0.0-12.0 % Eosinophils (%) (Auto) 1.0 0.0-7.0 % Basophils (%) (Auto) 0.6 0.0-2.0 % Neutrophils # (Auto) 5.1 1.6-8.6 10 ^3/uL Lymphocytes # (Auto) 2.1 0.4-5.4 10 ^3/uL Monocytes # (Auto) 1.1 0-1.3 10 ^3/uL Eosinophils # (Auto) 0.1 0-0.8 10 ^3/uL Basophils # (Auto) 0.1 0-0.2 10 ^3/uL Nucleated Red Blood Cells 0.1 % Sodium Level 138 136-145 mmol/L Potassium Level 3.1 L 3.5-5.1 mmol/L Chloride Level 101 98-107 mmol/L Carbon Dioxide Level 23 20-31 mmol/L Anion Gap 14 5-15 Blood Urea Nitrogen 11 9-23 mg/dL Creatinine 0.98 0.700-1.30 mg/dL Glomerular Filtration Rate Calc 107 >90 mL/min BUN/Creatinine Ratio 11.2 10.0-20.0 Serum Glucose 99 74-106 mg/dL Calcium Level 9.7 8.7-10.4 mg/dL Total Bilirubin 0.8 0.2-1.0 mg/dL Aspartate Amino Transferase (AST) 36 13-40 U/L Alanine Aminotransferase (ALT) 43 H 7-40 U/L Alkaline Phosphatase 96 46-116 U/L Total Protein 7.4 5.7-8.2 g/dL Albumin 4.7 3.2-4.8 g/dL Plasma/Serum Blood Alcohol 186.8 H <10 mg/dL CHEST RADIOGRAPH Indication: POST INTUBATION Technique: Single frontal view of the chest was obtained COMPARISON: XY CHEST PORTABLE on DOS: 11/19/22 FINDINGS: Lines and Tubes: Endotracheal tube and enteric catheter in satisfactory position Lungs: Clear Pleura: No effusion. No pneumothorax. Cardiomediastinal contours: Unremarkable Bones: Unremarkable IMPRESSION: Endotracheal tube and enteric catheter in satisfactory position EXAM: CT HEAD WITHOUT CONTRAST INDICATION: Recurrent seizure TECHNIQUE: CT of the head without intravenous contrast. Radiation Dose : 1. Head: CT Dose: CTDI volume is 62.77 mGy. Dose-length product is 1236.85 mGy*cm The dose indicators for CT are the volume Computed Tomography (CT) Dose Index (CTDIvol) and the Dose Length Product (DLP), and are measured in units of mGy and mGy-cm, respectively. These indicators are not patient dose, but values generated from the CT scanner acquisition factors. The report includes radiation exposure data for exposures received during this examination. COMPARISON: CT HEAD WITHOUT CONTRAST on DOS: 05/08/23, CT HEAD WITHOUT CONTRAST on DOS: 04/13/23, CT HEAD WITHOUT CONTRAST on DOS: 12/12/22, HEAD WITHOUT CONTRAST on DOS: 08/30/21 FINDINGS: There is no evidence of acute intracranial hemorrhage, extra-axial collection, mass effect, midline shift, herniation or hydrocephalus. The ventricles, sulci and cisterns are age appropriate. The humphries-white differentiation is intact. The visualized paranasal sinuses and mastoid air cells are clear. The surrounding soft tissues and osseous structures are unremarkable. IMPRESSION: 1. No acute intracranial abnormality. SEPSIS Sepsis Screen Date sepsis recognized/suspect: Jan 02, 2025 Time Sepsis recognized/suspect: 139 Recent Procedure: No On Antibiotic Therapy: No Respiratory Rate >20: No Heart Rate >90: No Temp<36 C (96.8 F) or >38.3 C: No SBP <90 or MAP <65 mmHG: No New Acute Mental Status Change: No Is the patient on CPAP, BIPAP,: No Physician Orders Seizure Precautions (01/02/25 ) Titrate Oxygen (01/02/25 01:07) Oxygen (01/02/25 ) Continous Pulse Oximetry (01/02/25 01:07) Saline Lock (01/02/25 01:07) Prepress Supervisor (01/02/25 ) Head Without Contrast (01/02/25 01:08) Ventilator Setup (01/02/25 07:40) Respiratory Culture W/ Gs (01/02/25 07:45) Abg W/ Co-Ox (01/02/25 08:30) Chest Xray 1 View (01/02/25 07:49) Midazolam Injection (Versed Injection) (01/02/25 08:00) Rocuronium [place] (01/02/25 08:00) Propofol (Diprivan) (01/02/25 08:00) Rass Sedation Scale Q1HR (01/02/25 07:50) Admit (01/02/25 07:52) Allergies (01/02/25 07:52) Code Status (01/02/25 07:52) Sodium Chloride 0.9% (01/02/25 08:00) Ondansetron Hcl (Zofran) (01/02/25 08:00) Complete Blood Count (01/03/25 04:00) Comprehensive Metabolic Panel (01/03/25 04:00) Npo (Nothing By Mouth) Diet (01/02/25 Breakfast) Acetaminophen Tablet (Tylenol Tablet) (01/02/25 08:00) Sequential Compression Device (01/02/25 ) Nitroglycerin Sublingual (Ntrostat Subli (01/02/25 08:00) Morphine Sulfate Injection (01/02/25 08:00) Stat Ekg For Chest Pain (01/02/25 07:52) Notify Of Changes From Base (01/02/25 07:52) [employer] 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 (01/02/25 07:52) Emergency Dysrhythmia Protocol (01/02/25 07:52) Rhythm Strips Once Every Shift (01/02/25 07:52) Oxygen By Nasal Cannula (01/02/25 07:52) * Neurology Consult (01/02/25 07:53) Respiratory Culture W/ Gs (01/02/25 07:53) Urine Bacterial Culture (01/02/25 07:53) Ventilator Orders (01/02/25 07:53) Ventilator Setup (01/02/25 07:53) Multiple Vitamin Tablet (Mvi Tab) (01/02/25 10:00) Sucralfate Tab (Carafate Tab) (01/02/25 11:30) (Nf) Folic Acid (01/02/25 10:00) Vital Signs Date Time Temp Pulse Resp B/P (MAP) Pulse Ox O2 Delivery O2 Flow Rate FiO2 01/02/25 06:00 88 15 90/42 (58) 90 01/02/25 04:00 84 01/02/25 04:00 84 16 89/52 (64) 96 01/02/25 02:00 84 18 102/52 (69) 96 01/02/25 01:30 97.7 103 22 118/78 (91) 95 97.7 01/02/25 01:30 103 18 96 Room Air* 0 21 01/02/25 01:05 98.0 126 20 125/85 (98) 98 98.0 Laboratory Tests Test 01/02/25 01:30 White Blood Count 8.4 10^3/uL (4.4-10.8) Medications Medications Dose Ordered Sig/Monserrat Route Start Time Stop Time Status Last Admin Dose Admin Levetiracetam 100 ml @ 400 mls/hr ONCE ONCE IV 01/02/25 01:15 01/02/25 01:29 DC 01/02/25 01:43 400 MLS/HR Lorazepam 2 mg ONCE ONCE IV 01/02/25 07:45 01/02/25 07:46 DC 01/02/25 07:23 2 MG Potassium Chloride 100 ml @ 50 mls/hr ONCE ONCE IV 01/02/25 03:00 01/02/25 04:59 DC 01/02/25 03:19 50 MLS/HR Propofol 20 mg ONCE ONCE IV 01/02/25 07:45 01/02/25 07:47 DC 01/02/25 07:28 20 MG Sodium Chloride 1,000 ml @ 1,000 mls/hr Q1H ONCE IV 01/02/25 01:15 01/02/25 02:14 DC 01/02/25 01:44 1,000 MLS/HR Sodium Chloride 1,000 ml @ 1,000 mls/hr Q1H ONCE IV 01/02/25 03:45 01/02/25 04:44 DC 01/02/25 03:48 1,000 MLS/HR Assessment/Plan Assessment/Plan Assessment Alcoholic induced seizures Acute hypoxic respiratory failure on mechanical ventilation Marijuana use Alcohol use Tobacco use Hypokalemia History of peptic ulcer disease History of liver disease History of seizures History of appendectomy History of hernia History of esophagitis History of gastroduodenitis with erosions Plan Admit to ICU Sedation Ventilator Bilateral wrist restraints as patient pulling on lines Antiemetics Antipyretics Pain management NS 2 L given ED Replete lytes Lactic ordered Thiamine Multivitamins Folic acid EKG Keppra Benzos Alcohol screen noted Chest x-ray noted CT head noted NPO IV fluids Home medications reconciled DVT prophylaxis-SCDs PUD prophylaxis-PPIs Discussed plan of care with nurse Neurology consult Plan discussed with: Other My Orders Orders - AZEB LARA Procedure Category Date Status Time Admit ADMIT 01/02/25 Transmitted 07:52 Allergies JANIE 01/02/25 In Process 07:52 Code Status CODE 01/02/25 Transmitted 07:52 Sodium Chloride 0.9% PHA 01/02/25 Logged 08:00 Ondansetron Hcl PHA 01/02/25 Logged (Zofran) 08:00 Complete Blood Count LAB 7/18/25 Verified 04:00 Comprehensive LAB 01/03/25 Verified Metabolic Panel 04:00 Npo (Nothing By DIET 01/02/25 Transmitted Mouth) Diet Breakfast Acetaminophen Tablet PHA 01/02/25 Logged (Tylenol Tablet) 08:00 Sequential JANIE 01/02/25 In Process Compression Device Nitroglycerin PHA 01/02/25 Logged Sublingual (Ntrostat 08:00 Morphine Sulfate PHA 01/02/25 Logged Injection 08:00 Stat Ekg For Chest [facility] 01/02/25 In Process Pain 07:52 Notify Md Of Changes [facility] 01/02/25 In Process From Base 07:52 High 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 For [facility] 01/02/25 In Process 24 Hours 07:52 Emergency Dysrhythmia [facility] 01/02/25 In Process Protocol 07:52 Rhythm Strips Once [facility] 01/02/25 In Process Every Shift 07:52 Oxygen By Nasal RT 01/02/25 Transmitted Cannula 07:52 * Neurology Consult CONS 01/02/25 Transmitted 07:53 Respiratory Culture OSVALDO 01/02/25 Logged W/ Gs 07:53 Urine Bacterial OSVALDO 01/02/25 Logged Culture 07:53 Ventilator Orders RT 01/02/25 Transmitted 07:53 Ventilator Setup RT 01/02/25 Logged 07:53 Multiple Vitamin PHA 01/02/25 Transmitted Tablet (Mvi Tab) 10:00 Sucralfate Tab PHA 01/02/25 Transmitted (Carafate Tab) 11:30 (Nf) Folic Acid PHA 01/02/25 Transmitted 10:00 Date of Service: Jan 02, 2025 Billing Provider: AZEB LARA Common Visit Codes: [id number] INP/OBS CARE (HIGH) Secondary Visit Codes: [id number] COUNSELING IND AZEB LARAP Jan 02, 2025 07:57
[2025-01-02] MEDS ORDERED: NITROGLYCERIN 0.4 MG SL TAB SL PRN (08:00)
[2025-01-02] MEDS ORDERED: MORPHINE SULFATE INJ 2 MG/ml SYRG IV PRN (08:00)
[2025-01-02] MEDS ORDERED: ONDANSETRON HCL 4 MG/2 ML VIAL IV PRN (08:00)
[2025-01-02] MEDS: SODIUM CHLORIDE 0.9% 1,000 ML IV SCH (08:06)
--- NOTE | 2025-01-02 08:21 | DVH ---
CHEST RADIOGRAPH Indication: POST INTUBATION Technique: Single frontal view of the chest was obtained COMPARISON: XY CHEST PORTABLE on DOS: 11/19/22 FINDINGS: Lines and Tubes: Endotracheal tube and enteric catheter in satisfactory position Lungs: Clear Pleura: No effusion. No pneumothorax. Cardiomediastinal contours: Unremarkable Bones: Unremarkable IMPRESSION: Endotracheal tube and enteric catheter in satisfactory position
[2025-01-02] MEDS: MIDAZOLAM DRIP 50 mg/50mL 50 ML IV SCH (08:40)
[2025-01-02] MEDS: fentaNYL Drip 2500mCg/250mlNS 250 ML IV SCH (09:00)
--- NOTE | 2025-01-02 09:09 | DVHINCON2 ---
Date of service: Jan 02, [address] Lopez Reason for Consultation Seizure History of Present Illness Mr. Dilan Castorena is a 29 years old right-handed gentleman with a history of liver disease, peptic ulcer disease, alcoholism, the patient was brought to the [facility] on 01/02/25 with a chief, of seizure activity. At this time he is sedated, intubated, the history is obtained from his , and chart review I saw him on 12/13/2022 for status epileptics On 01/02/25, when he was talking to the family after dinner, he suddenly became nonresponsive with shaking all over body, eyes rolling back, the relates he might have up to 20 seizures at home, but there was no biting or incontinence. The patient had witnessed seizure in the ER, he was intubated in the ER His seizure problem started in 11/2022, in that he has spells event with shaking all over body, eyes rolling back, company nonresponsiveness. The last time he had seizure was in May 2024. The patient was once a have alcohol drinker started in [id number], according to my consultation on 12/13/2022, three tall cans almost every day, but for a long period time, he only drinks two days a week, 2-3 drinks each time, but he did not have alcohol on 01/02/2025 He sees a neurologist in the [facility], he is on topiramate 100 mg b.i.d., Vimpat 100 mg b.i.d., he reported the medications medication drowsy He was on Keppra, which gave him hypersomnia [phone] does not accept phone call at this time Plasma alcohol, 12/12/2022: 175, 01/02/2025: 186.8 UDS, 12/13/2022: Benzo, cannabinoids, alcohol: 78 01/02/2025: Benzo, cannabinoids Urinalysis, 01/02/2025: Unremarkable CBC, 01/02/2025: Unremarkable CMP, 01/02/2025: Unremarkable Chest x-ray, 01/02/2025: Endotracheal tube and enteric catheter in satisfactory position CT head, 12/12/2022: No acute intracranial findings CT head, 01/02/2025: No acute intracranial abnormality MRI head, 12/14/2022: No acute infarct, intracranial hemorrhage, mass effect, or hydrocephalus Past Medical History Peptic ulcer disease, liver disease, pancreatitis Past Surgical History Appendectomy Family History: Arthritis G8 FATHER Diabetes mellitus G8 FATHER FH: hepatic cirrhosis G8 MOTHER Hypercholesterolemia G8 MOTHER G8 FATHER Hypertension G8 FATHER Family History Hypertension, diabetes, dyslipidemia, liver cirrhosis, arthritis Social History He smoked marijuana in the tobacco, heavy alcohol, no history of drug abuse Allergies: Coded Allergies: Ketorolac Tromethamine (Verified Allergy, Unknown, 11/10/20) Home Meds Active Scripts Hydrocodone-Acetaminophen (Hydrocodone Bitartrate/AC 5-325 mg) 1 Tab Tab, 1 TAB PO Q6HPRN PRN, #10 TAB Prov:ANDREINA HOWARD [facility] 02/13/24 Omeprazole (Omeprazole) 20 Mg Tab, 20 MG PO DAILY, #30 TAB Prov:ANDREINA HOWARD [facility] 02/13/24 Ondansetron Odt 4MG Tab (ZOFRAN PO) 4 Mg Tb, 4 MG PO Q6HPRN PRN, #20 TAB ODT TAB-DISSOLVE IN MOUTH, THEN SWALLOW Prov:ANDREINA HOWARD 02/13/24 Prednisone (Prednisone) 20 Mg Tab, 60 MG PO DAILY for 6 Days, #18 TAB Prov:IMANI IRIZARRY MD 11/19/22 Eye Patches (EYE PATCH) Mis, UNIT XX DAILY, #1 Prov:IMANI IRIZARRY MD 11/19/22 Artificial Tear Solution (ARTIFICIAL TEARS) Tears [place], 1 DROP RIGHTEYE Q1HR for 7 Days, #5 ML Prov:IMANI IRIZARRY MD 11/19/22 Dicyclomine Hcl (BENTYL CAPSULE) 10 Mg Cp, 2 CAP PO Q6HPRN PRN, #40 CAP 3 Refills Prov:CHECO LEMUS DO 08/10/22 Pantoprazole Sodium Sesquihydr (Protonix) 40 Mg Tab, 40 MG PO DAILY, #30 TAB Prov:CHECO LEMUS DO 08/10/22 Ondansetron (Zofran) 4 Mg Tab, 4 MG PO Q6HPRN PRN, #30 MG Prov:CHECO LEMUS DO 08/10/22 Chlordiazepoxide Hcl (Librium) 25 Mg Cp, 25 MG PO Q6HP PRN, #30 CAP Prov:CHECO LEMUS DO 08/10/22 Ondansetron (Zofran) 4 Mg Tab, 4 MG PO Q8HP PRN, #10 MG Prov:HEATHER RECINOS MD 10/07/21 Ondansetron (Zofran) 4 Mg Tab, 1 TAB PO Q6HR PRN, #20 TAB Prov:MAGY HOWARD MD 11/12/20 Sucralfate (CARAFATE) 1 Gm Tab, 1 GM PO QIDACHS for 30 Days, #120 TAB 1 Refill Prov:MAGY HOWARD MD 11/12/20 Pantoprazole Sodium Sesquihydr (Pantoprazole Sodium) 40 Mg Tab, 40 MG PO BID for 30 Days, #60 TAB 2 Refills Prov:MAGY HOWARD MD 11/12/20 Reported Medications Folic Acid (Folic Acid) 1 Mg Tab, 1 TAB PO BID 12/15/22 Multiple Vitamin (Daily-Wanda Multivitamin) 1 Tab Tab, 1 TAB PO 12/15/22 Levetiracetam (Levetiracetam) 750 Mg Tab, 1 TAB PO BID 12/15/22 Ondansetron HCl (Ondansetron Hydrochloride) 4 Mg Tab, 1 TAB PO 03/06/20 Pantoprazole Sodium Sesquihydr (Pantoprazole Sodium) 40 Mg Tab, 1 TAB PO DAILY 03/06/20 Current Medications Current Medications Medications (Trade) Dose Ordered Sig/Monserrat Route PRN Reason Start Time Stop Time Status Last Admin Propofol 100 ml @ 2.454 mls/ hr Q24H IV 01/02/25 07:30 Cancel Propofol 100 ml @ 2.454 mls/ hr Q24H IV 01/02/25 08:00 01/02/25 07:34 Sodium Chloride 1,000 ml @ 120 mls/hr Q8H20M IV 01/02/25 08:00 01/02/25 08:06 Ondansetron HCl (Zofran) 4 mg Q4HP PRN IV NAUSEA / VOMITING 01/02/25 08:00 Acetaminophen (Tylenol Tablet) 650 mg Q6HP PRN PO PAIN SCALE 1-3 OR TEMP>100.4 01/02/25 08:00 Nitroglycerin (Ntrostat Sublingual) 0.4 mg Q5MINP PRN SL FOR CHEST PAIN 01/02/25 08:00 Morphine Sulfate 2 mg Q30M PRN IV FOR CHEST PAIN 01/02/25 08:00 Multivitamins (Mvi Tab) 1 tab DAILY PO 01/02/25 10:00 Sucralfate (Carafate Tab) 1 gm QIDACHS PO 01/02/25 11:30 Folic Acid 1 mg BID PO 01/02/25 10:00 Levetiracetam 100 ml @ 400 mls/hr BID IV 01/02/25 22:00 Midazolam HCl 50 ml @ 1 mls/hr Q24H IV 01/02/25 08:45 Fentanyl Citrate 250 ml @ 2.5 mls/hr Q24H IV 01/02/25 09:00 UNV Review of Systems As above, the other system negative Vital Signs Vital Signs Date Time Temp Pulse Resp B/P (MAP) Pulse Ox O2 Delivery O2 Flow Rate FiO2 01/02/25 08:01 105 16 119/73 98 50 01/02/25 01:30 97.7 97.7 01/02/25 01:30 Room Air* 0 Physical Exam The patient is well-nourished and well-developed with no distress. The patient is intubated HEENT: Normocephalic, neck supple, no carotid bruits Lungs: Clear to auscultation Cardiovascular: Regular rate and region, S1, S2, no murmurs Abdomen: Soft, nontender, normal bowel sounds MENTAL STATUS: Rresponsive to the surroundings, CRANIAL NERVES: Pupils are equal, round and reactive.There are corneal reflexes and doll's eyes phenomenon. No signs of facial weakness. There are gagging or coughing reflexes SENSATION: Responses to pain stimuli. MOTOR: Normal tone in the upper and lower extremity. Normal muscle bulk. No fasciculations. He moves the arms sometimes, his restrained REFLEXES: Deep tendon reflexes are symmetrical. No pathological reflexes. CEREBELLAR/COORDINATION: Deferred GAIT/STATION: deferred. Labs/Diagnostic Data Labs Test 01/02/25 08:15 01/02/25 07:00 01/02/25 01:30 Range/Units POC Glucose 108 H 70-106 mg/dl Urine Color Light-yellow Yellow Urine Clarity Clear Clear Urine pH 5.5 5.0-9.0 Urine Specific [place] 1.012 1.001-1.035 Urine Protein Negative Negative Urine Ketones Negative Negative Urine Blood Negative Negative /uL Urine Nitrite Negative Negative Urine Bilirubin Negative Negative Urine Urobilinogen Normal Negative mg/dL Urine Leukocyte Esterase Negative Negative /uL Urine RBC 1 0 - 3 /hpf Urine Microscopic WBC < 1 0-3 /HPF Urine Squamous Epithelial Cells None seen <5 /hpf Urine Uric Acid Crystals Few None Seen /hpf Urine Bacteria None seen None Seen /hpf Urine Glucose Normal Normal mg/dL Urine Opiates Screen Neg NEGATIVE Urine Fentanyl Screen Neg NEGATIVE Urine Barbiturates Screen Neg NEGATIVE Urine Phencyclidine Screen Neg NEGATIVE Urine Amphetamines Screen Neg NEGATIVE Urine Benzodiazepines Screen Pos NEGATIVE Urine Cocaine Screen Neg NEGATIVE Urine Cannabinoids Screen Pos NEGATIVE White Blood Count 8.4 4.4-10.8 10^3/uL Red Blood Count 5.64 4.5-5.90 10^6/uL Hemoglobin 17.0 13.5-17.5 g/dL Hematocrit 49.4 41.0-53.0 % Mean Corpuscular Volume 87.5 80.0-100.0 fL Mean Corpuscular Hemoglobin 30.1 28.0-32.0 pg Mean Corpuscular Hemoglobin Concent 34.4 32.0-36.0 g/dL Red Cell Distribution Width 12.9 11.8-14.3 % Platelet Count 250 140-450 10^3/uL Mean Platelet Volume 8.2 6.9-10.8 fL Neutrophils (%) (Auto) 60.4 37.0-80.0 % Lymphocytes (%) (Auto) 25.4 10.0-50.0 % Monocytes (%) (Auto) 12.6 H 0.0-12.0 % Eosinophils (%) (Auto) 1.0 0.0-7.0 % Basophils (%) (Auto) 0.6 0.0-2.0 % Neutrophils # (Auto) 5.1 1.6-8.6 10 ^3/uL Lymphocytes # (Auto) 2.1 0.4-5.4 10 ^3/uL Monocytes # (Auto) 1.1 0-1.3 10 ^3/uL Eosinophils # (Auto) 0.1 0-0.8 10 ^3/uL Basophils # (Auto) 0.1 0-0.2 10 ^3/uL Nucleated Red Blood Cells 0.1 % Sodium Level 138 136-145 mmol/L Potassium Level 3.1 L 3.5-5.1 mmol/L Chloride Level 101 98-107 mmol/L Carbon Dioxide Level 23 20-31 mmol/L Anion Gap 14 5-15 Blood Urea Nitrogen 11 9-23 mg/dL Creatinine 0.98 0.700-1.30 mg/dL Glomerular Filtration Rate Calc 107 >90 mL/min BUN/Creatinine Ratio 11.2 10.0-20.0 Serum Glucose 99 74-106 mg/dL Calcium Level 9.7 8.7-10.4 mg/dL Total Bilirubin 0.8 0.2-1.0 mg/dL Aspartate Amino Transferase (AST) 36 13-40 U/L Alanine Aminotransferase (ALT) 43 H 7-40 U/L Alkaline Phosphatase 96 46-116 U/L Total Protein 7.4 5.7-8.2 g/dL Albumin 4.7 3.2-4.8 g/dL Plasma/Serum Blood Alcohol 186.8 H <10 mg/dL Assessment Status epileptics Grand mal seizure, likely alcohol withdrawal seizure ? Alcoholism Plan/Recommendation Monitoring Supportive treatment ICU care STABILIZE VITALS Respiratory support/vent management EEG Ativan for seizure breakthrough Keppra 1000mg IV b.i.d. for now Vimpat 100 mg b.i.d. IV Resumed topiramate 100 mg b.i.d. later Ativan for seizure breakthrough Thiamine supplementation Folic acid supplementation GI prophylax Follow up with his doctors on discharge Critical care time spent is 45 minutes Prognosis: Guarded, Poor This medical document was created using an electronic medical record system with [employer] dictation system. Although this document has been carefully reviewed, there may still be some phonetic and typographical errors. These areas are purely typographical due to imperfections of the software programs, and do not reflect any compromise in the patient's medical care. Plan discussed with: Spouse, Other JAX BEASLEY MD Jan 02, 2025 09:09
[2025-01-02 09:12] LABS: Base Excess -5.9 mmol/L (-2.0-3.0)
[2025-01-02] MEDS: MIDAZOLAM DRIP 50 mg/50mL 50 ML IV ONE (09:50)
[2025-01-02] MEDS: fentaNYL Drip 2500mCg/250mlNS 250 ML IV ONE (09:50)
[2025-01-02] MEDS ORDERED: MULTIPLE VITAMIN TAB PO SCH (10:00)
[2025-01-02] MEDS: FOLIC ACID 1 MG TAB PO SCH (11:18)
[2025-01-02] MEDS: THIAMINE 100mg/ml INJ (200mg/2ml VIAL) IV ONE (11:18)
[2025-01-02] MEDS ORDERED: SUCRALFATE 1 GM TAB PO SCH (11:30)
[2025-01-02] MEDS: NOREPINEPHRINE 8 MG/250ML KIT 250 ML IV ONE (11:56)
[2025-01-02] MEDS: NOREPINEPHRINE 8 MG/250ML KIT 250 ML IV SCH (12:06)
--- NOTE | 2025-01-02 13:17 | DVHPN2 ---
Assessment/Plan Assessment/Plan ICU note 29 yo M wth PUD, epilepsy, alcohol use, smoker admitted for status epilepticus, intubated in ED for airway protection, started on sedation. physical exam sedated, intubated on mechanical vent pinpoint pupil neck supple + gag no corneal mechanical breath sounds abdomen soft slightly distended no LE edema no clonus, no Babinski labs ekg imaging reviewed assessment and plan status epilepticus, alcohol related sz vs alcohol withdrawal sz vs epilepsy acute hypoxic RF req mechanical vent distributive shock aspiration PNA? toxic metabolic encephalopathy PUD epilepsy alcohol use smoker cannot r/o Wernicke c/w mechanical vent c/w pressor support map goal >65 c/w sedation, RAAS goal -4 ceft azithro iv hydration, will use banana bag high dose thiamine folic acid neuro consult EEG r/o non convulsive seizure strict i/o Keppra, vimpat switch fem TLC lines ETT NGT bazzi fem TLC keep K 4 Mg 2 Ph 3 diet NPO for now dvt ppx lovenox GI ppx protonix full code prognosis poor condition critical 90 minutes crit care time spent Plan discussed with: Other My Orders Orders - VINICIUS CHOWDHURY MD Procedure Category Date Status Time Pantoprazole PHA 01/03/25 In Process (Protonix) 10:00 Norepinephrine 8 PHA 01/02/25 In Process Mg/250ml Kit 11:15 Mrsa Screen OSVALDO 01/02/25 In Process 11:08 Creatine Kinase LAB 01/03/25 Verified 04:00 Lactic Acid W/ Reflex LAB 01/03/25 Verified Order 04:00 Phosphorus LAB 01/03/25 Verified 04:00 Magnesium LAB 01/03/25 Verified 04:00 Thiamine Inj PHA 01/02/25 Logged 14:00 Thiamine Inj PHA 01/05/25 Logged 10:00 Folic Acid PHA 01/03/25 Logged 10:00 Abg W/ Co-Ox RT 01/02/25 Logged 13:13 Date of Service: Jan 02, 2025 Billing Provider: VINICIUS CHOWDHURY MD Common Visit Codes: [id number] CARE 30-74 MIN, [id number] CARE-EACH +30MIN VINICIUS CHOWDHURY MD Jan 02, 2025 13:17
[2025-01-02 13:50] LABS: Base Excess -4.3 mmol/L (-2.0-3.0)
--- NOTE | 2025-01-02 15:14 | DVHNC2 ---
Central Line Recorder of insertion practice: Crew Leader Occupation of parts administrator: Attending Physician Indication: Hypotension, Relpace: line malfunction Crew Leader performed hand hygien: Yes Maximal sterile barrier precau: Mask/Eye shield, Sterile gown, Cap, Sterlie gl oves, Large sterlie drape Skin Preparation: Chlorhexidine gluconate Skin preparation completely dr: Yes Insertion site: Left, Internal jugular Central line catheter type: [id number] dialysis Number of lumens: 3 Post Assessment: Chest X-Ray, Proper placement, No Pneumothorax Date of Service: Jan 02, 2025 Billing Provider: VINICIUS CHOWDHURY MD Common Visit Codes: PROCEDURE ONLY Procedure Codes: [id number] NON-TUNNEL CV CATH VINICIUS CHOWDHURY MD Jan 02, 2025 15:14
--- NOTE | 2025-01-02 15:52 | DVH ---
CHEST RADIOGRAPH Indication: LEFT IJ INSERTION PLACEMENT Technique: XY CHEST XRAY 1 VIEW Comparison: None FINDINGS: Endotracheal tube tip projects 4.3 cm above the kieran. Nasogastric tube projects towards the distal stomach. Left IJ catheter tip projects over the SVC. The cardiac silhouette is unremarkable. The lungs demonstrate bilateral patchy airspace opacities. Th e pulmonary vasculature is prominent. There is no pleural effusion. There is no pneumothorax. IMPRESSION: As above
[2025-01-02] MEDS: THIAMINE INJ 500 MG in D5W 5% 50 ML IV SCH (16:34)
[2025-01-02 21:35] LABS: Potassium 4.0 mmol/L (3.5-5.1)
[2025-01-02] MEDS: levETIRAcetam 1000 mg/100ml 100 ML IV SCH (21:38)
[2025-01-02 21:42] LABS: Alkaline Phosphatase 76.0 U/L (46-116); Magnesium 1.8 mg/dL (1.6-2.6)
[2025-01-02] MEDS ORDERED: LACOSAMIDE 100 MG in SODIUM CHL 0.9% 100 ML IV SCH (22:00)
[2025-01-02] MEDS: LACOSAMIDE 100 MG in SODIUM CHL 0.9% 50 ML IV SCH (22:08)
[2025-01-03] VITALS (108 sets, daily range): BP systolic 94–133; BP diastolic 53–76; PULSE 65–91; RESP 16; TEMP 93–101.5; O2SAT 99–100
[2025-01-03 03:28] LABS: Hematocrit 40.9 % (41.0-53.0); Hemoglobin 13.9 g/dL (13.5-17.5); Mean Corpuscular Hemoglobin 30.4 pg (28.0-32.0); Mean Corpuscular Volume 89.1 fL (80.0-100.0); Nucleated Red Blood Cells % 0.2 %
[2025-01-03 03:35] LABS: Alanine Aminotransferase 31 U/L (7-40); Alkaline Phosphatase 75 U/L (46-116); Anion Gap 8 (5-15); BUN/Creatinine Ratio 11.9 (10.0-20.0); Blood Urea Nitrogen 10 mg/dL (9-23); Carbon Dioxide 23 mmol/L (20-31); Magnesium 1.8 mg/dL (1.6-2.6); Potassium 3.8 mmol/L (3.5-5.1); Sodium 142 mmol/L (136-145)
[2025-01-03 03:36] LABS: Albumin 3.5 g/dL (3.2-4.8); Creatine Kinase IFCC 100 U/L (46-171)
[2025-01-03 03:37] LABS: Bilirubin, Total 1.0 mg/dL (0.2-1.0)
[2025-01-03 04:08] LABS: Calcium 8.3 mg/dL (8.7-10.4); Chloride 111 mmol/L (98-107); Glucose 70 mg/dL (74-106); Total Protein 5.6 g/dL (5.7-8.2)
[2025-01-03 07:16] LABS: Base Excess -7.8 mmol/L (-2.0-3.0)
[2025-01-03] MEDS: cefTRIAXone 1GM/50ML D5W 50 ML IV SCH (08:53)
[2025-01-03] MEDS: PANTOPRAZOLE 40 MG/10 ML VIAL INJ IV SCH (09:17)
[2025-01-03] MEDS: MULTIPLE VITAMINS W/ MINERALS TAB PO SCH (09:17)
[2025-01-03] MEDS ORDERED: THIAMINE 100mg/ml INJ (200mg/2ml VIAL) IV SCH (10:00)
[2025-01-03] MEDS ORDERED: FOLIC ACID 1 MG TAB PO SCH (10:00)
[2025-01-03] MEDS: FOLIC ACID 1 MG in D5W 5% 50 ML INJ SCH (10:07)
[2025-01-03] MEDS: AZITHROMYCIN 500MG/ 250ML 250 ML IV SCH (10:38)
[2025-01-03] MEDS ORDERED: Jevity 1.2 Cal/Fiber 1 Liter GT SCH (11:00)
--- NOTE | 2025-01-03 14:01 | DVH ---
CHEST RADIOGRAPH Indication: intubated Technique: Single frontal view of the chest was obtained COMPARISON: XY CHEST XRAY 1 VIEW on DOS: 01/02/25, XY CHEST XRAY 1 VIEW on DOS: 01/02/25, XY CHEST PORT ABLE on DOS: 11/19/22 FINDINGS: Lines and Tubes: Endotracheal tube and enteric catheter in satisfactory position. Lungs: Left mid lung airspace disease. Pleura: No effusion. No pneumothorax. Cardiomediastinal contours: Unremarkable Bones: Unremarkable IMPRESSION: Endotracheal tube and enteric catheter in satisfactory position. Left mid and perihilar airspace disease, increased.
[2025-01-03] MEDS: Vital High Protein 1liter Bottle GT SCH (14:17)
[2025-01-03] MEDS: ACETAMINOPHEN 325 MG TAB PO PRN (14:37)
--- NOTE | 2025-01-03 15:19 | DVHPN2 ---
Assessment/Plan Assessment/Plan ICU note 29 yo M wth PUD, epilepsy, alcohol use, smoker admitted for status epilepticus, intubated in ED for airway protection, started on sedation. pending EEG result. daily SAT SBT, off pressors. place midline. physical exam sedated, intubated on mechanical vent pinpoint pupil neck supple + gag no corneal mechanical breath sounds abdomen soft slightly distended no LE edema no clonus, no Babinski labs ekg imaging reviewed assessment and plan status epilepticus, alcohol related sz vs alcohol withdrawal sz vs epilepsy acute hypoxic RF req mechanical vent distributive shock aspiration PNA? toxic metabolic encephalopathy PUD epilepsy alcohol use smoker cannot r/o Wernicke c/w mechanical vent c/w pressor support map goal >65 c/w sedation, RAAS goal -2 daily SAT SBT ceft azithro iv hydration high dose thiamine folic acid neuro consult EEG r/o non convulsive seizure strict i/o Keppra, vimpat switch fem TLC lines ETT NGT bazzi fem TLC keep K 4 Mg 2 Ph 3 diet NPO for now dvt ppx lovenox GI ppx protonix full code prognosis poor condition critical 45 minutes crit care time spent Plan discussed with: Spouse My Orders Orders - VINICIUS CHOWDHURY MD Procedure Category Date Status Time D/C Tlc JANIE 01/02/25 In Process 15:28 Communication Order ORDERS 01/02/25 Transmitted 15:28 Abg W/ Co-Ox RT 01/03/25 Logged 05:07 Chest Xray 1 View XY 01/03/25 Resulted 10:14 Basic Metabolic Panel LAB 01/04/25 Verified 04:00 Comprehensive LAB 01/04/25 Verified Metabolic Panel 04:00 Lactic Acid W/ Reflex LAB 01/04/25 Verified Order 04:00 Phosphorus LAB 01/04/25 Verified 04:00 Magnesium LAB 01/04/25 Verified 04:00 Sedation Vacation JANIE 01/03/25 In Process 10:56 Cpap Trial For Am ORDERS 01/03/25 Transmitted 10:56 Nutritional PHA 01/03/25 In Process Supplements (Vital 12:30 Date of Service: Jan 03, 2025 Billing Provider: VINICIUS CHOWDHURY MD Common Visit Codes: [id number] CARE 30-74 MIN VINICIUS CHOWDHURY MD Jan 03, 2025 15:19
[2025-01-03] MEDS: POTASSIUM CHLORIDE 40 MEQ in D5W/LACTATED RINGERS 1,000 ML IV SCH (17:18)
--- NOTE | 2025-01-03 23:19 | DVHPN2 ---
Progress Note - Dictate Date Seen: Jan 03, 2025 Medical Necessity Reason Pt with a Central, PICC or Fol: Yes The following are medically ne: Puente Catheter Subjective Mr. Dilan Castorena is a 29 years old right-handed gentleman with a history of liver disease, peptic ulcer disease, alcoholism, the patient was brought to the [facility] on 01/02/25 with a chief, of seizure activity. I saw him on 12/13/2022 for status epileptics I have seen and examined the patient, talked to his nurse, new seizure activity, he is intubated, nonresponsive to stroke painful stimuli Fentanyl 225 mcg/hour, propofol 50 mcg/minute, Versed 9 mg/hour Plasma alcohol, 12/12/2022: 175, 01/02/2025: 186.8 UDS, 12/13/2022: Benzo, cannabinoids, alcohol: 78 01/02/2025: Benzo, cannabinoids Urinalysis, 01/02/2025: Unremarkable CBC, 01/02/2025: Unremarkable CMP, 01/02/2025: Unremarkable Chest x-ray, 01/02/2025: Endotracheal tube and enteric catheter in satisfactory position CT head, 12/12/2022: No acute intracranial findings CT head, 01/02/2025: No acute intracranial abnormality MRI head, 12/14/2022: No acute infarct, intracranial hemorrhage, mass effect, or hydrocephalus vital signs Vital Sign Date Time Temp Pulse Resp B/P (MAP) Pulse Ox O2 Delivery O2 Flow Rate FiO2 01/03/25 22:30 79 16 111/66 (81) 100 01/03/25 22:18 30 01/03/25 22:00 99.3 210.7 01/03/25 20:00 Mechanical Ventilator+ 01/02/25 01:30 0 Total Intake and Output 01/02/25 01/02/25 01/03/25 14:59 22:59 06:59 Intake Total 772.830 ml 1417.884 ml 1353.706 ml Output Total 675 ml 600 ml Balance 772.830 ml 742.884 ml 753.706 ml medications Current Medications Medications Dose Ordered Sig/Monserrat Route Start Time Stop Time Status Last Admin Dose Admin Propofol 100 ml @ 2.454 mls/ hr Q24H IV 01/02/25 07:30 Cancel Propofol 100 ml @ 2.454 mls/ hr Q24H IV 01/02/25 08:00 01/03/25 17:09 7.362 MLS/HR Sodium Chloride 1,000 ml @ 120 mls/hr Q8H20M IV 01/02/25 08:00 01/03/25 17:10 120 MLS/HR Acetaminophen 650 mg Q6HP PRN PO 01/02/25 08:00 01/03/25 14:37 650 MG Levetiracetam 100 ml @ 400 mls/hr BID IV 01/02/25 22:00 01/03/25 21:46 400 MLS/HR Midazolam HCl 50 ml @ 1 mls/hr Q24H IV 01/02/25 08:45 01/03/25 20:13 10 MLS/HR Fentanyl Citrate 250 ml @ 2.5 mls/hr Q24H IV 01/02/25 09:00 01/03/25 18:30 25 MLS/HR Lorazepam 1 mg Q5MINP PRN IV 01/02/25 10:15 Pantoprazole Sodium 40 mg DAILY IV 01/03/25 10:00 01/03/25 09:17 40 MG Multivitamins/ Minerals 1 tab DAILY PO 01/03/25 10:00 01/03/25 09:17 1 TAB Norepinephrine Bitartrate 250 ml @ 3.75 mls/hr Q24H IV 01/02/25 11:15 01/02/25 12:06 3.75 MLS/HR Thiamine HCl 500 mg/Dextrose 55 ml @ 100 mls/hr TID IV 01/02/25 14:00 01/04/25 06:32 01/03/25 22:54 100 MLS/HR Thiamine HCl 250 mg/Dextrose 52.5 ml @ 100 mls/hr DAILY IV 01/05/25 10:00 01/10/25 09:59 Folic Acid 1 mg/ Dextrose 50.2 ml @ 200.8 mls/ hr DAILY INJ 01/03/25 10:00 01/03/25 10:07 200.8 MLS/HR Ceftriaxone Sodium 50 ml @ 100 mls/hr DAILY@09 IV 01/03/25 09:00 01/08/25 08:59 01/03/25 08:53 100 MLS/HR Azithromycin 250 ml @ 125 mls/hr DAILY IV 01/03/25 10:00 01/08/25 09:59 01/03/25 10:38 125 MLS/HR Lacosamide 100 mg/ Sodium Chloride 110 ml @ 120 mls/hr BID IV 01/02/25 22:00 Cancel Lacosamide 100 mg/ Sodium Chloride 60 ml @ 120 mls/hr BID IV 01/02/25 22:00 01/03/25 22:07 120 MLS/HR Enteral Nutritional Formula 1,000 ml 40ML/HR GT 01/03/25 12:30 01/03/25 14:17 1,000 ML Potassium Chloride 40 meq/ Dextrose/Lactated Ringer's 1,020 ml @ 100 mls/hr [id number] IV 01/03/25 15:30 01/04/25 01:41 01/03/25 17:18 100 MLS/HR objective The patient is well-nourished and well-developed with no distress. The patient is intubated MENTAL STATUS: Subjective CRANIAL NERVES: Pupils are equal, round and reactive.There are corneal reflexes and doll's eyes phenomenon. No signs of facial weakness. There are gagging or coughing reflexes SENSATION: Nonresponsive to pain MOTOR: Normal tone in the upper and lower extremity. Normal muscle bulk. No fasciculations. He moves the arms sometimes, his restrained REFLEXES: Deep tendon reflexes are symmetrical. No pathological reflexes. CEREBELLAR/COORDINATION: Deferred GAIT/STATION: deferred. laboratory and microbiology Laboratory Tests 01/03/25 02:41 Test 01/03/25 02:41 Range/Units Serum Glucose 70 L 74-106 mg/dL Problem List Status epileptics Grand mal seizure, likely alcohol withdrawal seizure ? Alcoholism Assessment/Plan Monitoring Supportive treatment ICU care Stabilize vitals Respiratory support/vent management EEG Ativan for seizure breakthrough Keppra 1000mg IV b.i.d. for now Vimpat 100 mg b.i.d. IV Resumed topiramate 100 mg b.i.d. later Ativan for seizure breakthrough Thiamine supplementation Folic acid supplementation GI prophylax Follow up with his doctors on discharge This medical document was created using an electronic medical record system with [employer] dictation system. Although this document has been carefully reviewed, there may still be some phonetic and typographical errors. These areas are purely typographical due to imperfections of the software programs, and do not reflect any compromise in the patient's medical care. Prognosis Guarded Dietary Evaluation Review Comments: High protein peptide TF, Vital HP 245ml/hr, providing 94g protein 1080kcal and 9.3ml free water. if adding proofol 12.27ml/hr (324kcal) pt will be supported at 97%protein needs and 87% energy needs. will reassess when pt is off vent. Expected Outcomes/Goals: maintain ABW, Plan discussed with: Other Critical Care Time(min): 35 JAX BEASLEY MD Jan 03, 2025 23:19
[2025-01-04] VITALS (104 sets, daily range): BP systolic 97–168; BP diastolic 54–103; PULSE 66–122; RESP 12–18; TEMP 89.2–100.6; O2SAT 99–100
[2025-01-04 03:42] LABS: Alanine Aminotransferase 26 U/L (7-40); Albumin 3.5 g/dL (3.2-4.8); Alkaline Phosphatase 75 U/L (46-116); Anion Gap 5 (5-15); Calcium 9.1 mg/dL (8.7-10.4); Carbon Dioxide 27 mmol/L (20-31); Chloride 107 mmol/L (98-107); Magnesium 1.7 mg/dL (1.6-2.6); Potassium 3.5 mmol/L (3.5-5.1); Sodium 139 mmol/L (136-145)
[2025-01-04 03:43] LABS: BUN/Creatinine Ratio 7.5 (10.0-20.0); Bilirubin, Total 0.8 mg/dL (0.2-1.0); Blood Urea Nitrogen < 5 mg/dL (9-23); Glucose 125 mg/dL (74-106); Total Protein 5.7 g/dL (5.7-8.2)
[2025-01-04 07:35] LABS: Base Excess -1.5 mmol/L (-2.0-3.0)
[2025-01-04] MEDS: DEXMEDETOMIDINE HCL IN D5W 100 ML IV SCH (09:00)
[2025-01-04] MEDS: LORazepam 2MG/ML-1ML VIAL IV PRN (09:25)
--- NOTE | 2025-01-04 10:59 | DVHPN2 ---
Assessment/Plan Assessment/Plan ICU note 29 yo M wth PUD, epilepsy, alcohol use, smoker admitted for status epilepticus, intubated in ED for airway protection, started on sedation. on sedation vacation today exhibited convulsive movements. which self abort in 20 seconds. placed back on sedation. will delay sedation vacation. pending eeg result. physical exam sedated, intubated on mechanical vent pinpoint pupil neck supple + gag no corneal mechanical breath sounds abdomen soft slightly distended no LE edema no clonus, no Babinski labs ekg imaging reviewed assessment and plan status epilepticus, alcohol related sz vs alcohol withdrawal sz vs epilepsy acute hypoxic RF req mechanical vent distributive shock aspiration PNA? toxic metabolic encephalopathy PUD epilepsy alcohol use smoker cannot r/o Wernicke c/w mechanical vent c/w pressor support map goal >65 c/w sedation, RAAS goal -2 (taper off versed slowly) can add precedex will consider phenobarb if unable to taper off meds daily SAT SBT ceft azithro iv hydration high dose thiamine folic acid neuro consult EEG r/o non convulsive seizure strict i/o Keppra, vimpat switch fem TLC lines ETT NGT bazzi LIJ TLC keep K 4 Mg 2 Ph 3 diet TF dvt ppx lovenox GI ppx protonix full code prognosis poor condition critical 50 minutes crit care time spent Plan discussed with: Other My Orders Orders - VINICIUS CHOWDHURY MD Procedure Category Date Status Time Cpap Trial For Am ORDERS 01/03/25 Transmitted 10:56 Nutritional PHA 01/03/25 In Process Supplements (Vital 12:30 Date of Service: Jan 04, 2025 Billing Provider: VINICIUS CHOWDHURY MD Common Visit Codes: [id number] CARE 30-74 MIN VINICIUS CHOWDHURY MD Jan 04, 2025 10:59
--- NOTE | 2025-01-04 13:58 | DVHPN2 ---
Progress Note - Dictate Date Seen: Jan 04, 2025 Medical Necessity Reason Pt with a Central, PICC or Fol: Yes The following are medically ne: Puente Catheter vital signs Vital Sign Date Time Temp Pulse Resp B/P (MAP) Pulse Ox O2 Delivery O2 Flow Rate FiO2 01/04/25 13:15 68 16 104/59 (74) 100 01/04/25 12:34 30 01/04/25 12:00 Mechanical Ventilator+ 01/04/25 10:59 99.9 Total Intake and Output 01/03/25 01/03/25 01/04/25 15:00 23:00 07:00 Intake Total 1646.358 ml 2241.850 ml 1890.344 ml Output Total 950 ml 2925 ml Balance 1646.358 ml 1291.850 ml -1034.656 ml medications Current Medications Medications Dose Ordered Sig/Monserrat Route Start Time Stop Time Status Last Admin Dose Admin Propofol 100 ml @ 2.454 mls/ hr Q24H IV 01/02/25 07:30 Cancel Propofol 100 ml @ 2.454 mls/ hr Q24H IV 01/02/25 08:00 01/04/25 04:28 12.27 MLS/HR Sodium Chloride 1,000 ml @ 120 mls/hr Q8H20M IV 01/02/25 08:00 01/04/25 13:15 120 MLS/HR Acetaminophen 650 mg Q6HP PRN PO 01/02/25 08:00 01/04/25 09:57 650 MG Levetiracetam 100 ml @ 400 mls/hr BID IV 01/02/25 22:00 01/04/25 09:43 400 MLS/HR Midazolam HCl 50 ml @ 1 mls/hr Q24H IV 01/02/25 08:45 01/04/25 07:55 8 MLS/HR Fentanyl Citrate 250 ml @ 2.5 mls/hr Q24H IV 01/02/25 09:00 01/04/25 05:50 20 MLS/HR Lorazepam 1 mg Q5MINP PRN IV 01/02/25 10:15 01/04/25 09:25 1 MG Pantoprazole Sodium 40 mg DAILY IV 01/03/25 10:00 01/04/25 09:42 40 MG Multivitamins/ Minerals 1 tab DAILY PO 01/03/25 10:00 01/04/25 09:43 1 TAB Norepinephrine Bitartrate 250 ml @ 3.75 mls/hr Q24H IV 01/02/25 11:15 01/02/25 12:06 3.75 MLS/HR Thiamine HCl 250 mg/Dextrose 52.5 ml @ 100 mls/hr DAILY IV 01/05/25 10:00 01/10/25 09:59 Folic Acid 1 mg/ Dextrose 50.2 ml @ 200.8 mls/ hr DAILY INJ 01/03/25 10:00 01/04/25 09:57 200.8 MLS/HR Ceftriaxone Sodium 50 ml @ 100 mls/hr DAILY@09 IV 01/03/25 09:00 01/08/25 08:59 01/04/25 09:00 100 MLS/HR Azithromycin 250 ml @ 125 mls/hr DAILY IV 01/03/25 10:00 01/08/25 09:59 01/04/25 09:43 125 MLS/HR Lacosamide 100 mg/ Sodium Chloride 110 ml @ 120 mls/hr BID IV 01/02/25 22:00 Cancel Lacosamide 100 mg/ Sodium Chloride 60 ml @ 120 mls/hr BID IV 01/02/25 22:00 01/04/25 11:32 120 MLS/HR Enteral Nutritional Formula 1,000 ml 40ML/HR GT 01/03/25 12:30 01/03/25 14:17 1,000 ML laboratory and microbiology Laboratory Tests 01/04/25 02:59 01/03/25 02:41 Test 01/04/25 02:59 Range/Units Serum Glucose 125 H 74-106 mg/dL Assessment/Plan Impression Acute hypoxemic respiratory failure Hx of alcohol abuse Pneumonia Seizures Patient seen and examined in the ICU Events On mechanical ventilation S/p intubation for airway protection PEEP 5, FiO2 30% Breakthrough seizure noted during sedation holiday Required resedation Labs and imaging reviewed Chest x-ray shows perihilar airspace disease ABG reviewed pH 7.37, pCO2 41, pO2 109 Management Vent support Titrate to maintain sats 90% or above Sedation holiday daily If patient follows commands, proceed to weaning trial Pressure support 12/21, extubate when ready Continue antibiotics F/u cultures Bronchodilators Monitor renal function Monitor electrolytes Supplement as needed Pressors as needed for hemodynamic support To maintain a mean arterial pressure of 65 mmHg Antiepileptics as ordered DVT prophylaxis Critical care time 35 minutes Dietary Evaluation Review Comments: High protein peptide TF, Vital HP 245ml/hr, providing 94g protein 1080kcal and 9.3ml free water. if adding proofol 12.27ml/hr (324kcal) pt will be supported at 97%protein needs and 87% energy needs. will reassess when pt is off vent. Expected Outcomes/Goals: maintain ABW, Plan discussed with: Other (Rn) ALFREDO DAY MD Jan 04, 2025 13:58
--- NOTE | 2025-01-04 15:25 | DVH ---
MRI BRAIN HEAD WO CONTRAST INDICATION: SEIZURE ACTIVITY EXAM DATE: 01/04/2025 02:43 PM COMPARISON: MRI BRAIN HEAD WO CONTRAST on DOS: 12/14/22, MRI BRAIN HEAD WO CONTRAST on DOS: 12/13/22 PROCEDURE: Using a 1.5 Leatha scanner, multisequence multiplanar imaging of the brain was obtained. FINDINGS: The brainshows normal morphology and signal characteristics. No abnormal T2 hyperintensity, diffusion restriction, or susceptibility hypointensity is present. The ventricles are normal in size . The midline structures are intact. The major intracranial flow voids are present. The aerated space s are normal. The orbital contents and extracranial soft tissues appear normal. IMPRESSION: Normal MRI findings of the brain.
--- NOTE | 2025-01-04 21:13 | DVHPN2 ---
Progress Note - Dictate Date Seen: Jan 04, 2025 Medical Necessity Reason Pt with a Central, PICC or Fol: Yes The following are medically ne: Puente Catheter Subjective Mr. Dilan Castorena is a 29 years old right-handed gentleman with a history of liver disease, peptic ulcer disease, alcoholism, the patient was brought to the [facility] on 01/02/25 with a chief, of seizure activity. I saw him on 12/13/2022 for status epileptics I have seen and examined the patient, talked to his nurse, he had new seizure activity, he is intubated, nonresponsive to strong painful stimuli (was respond to painful stimuli earlier today) I have talked to his brother, Grover, . He confirmed that patient only drinks alcohol twice weekly. He is not happy with patient's care with us, he mentioned we could not control his seizure previously, and the [facility] was able to control patient's seizure right away. He wanted, and after discussing with his , I agreed to transfer the patient is to a higher level care Grover agreed the patient's is the decision maker Fentanyl 200 mcg/hour, propofol 15 mcg/minute, Versed 8 mg/hour Plasma alcohol, 12/12/2022: 175, 01/02/2025: 186.8 UDS, 12/13/2022: Benzo, cannabinoids, alcohol: 78 01/02/2025: Benzo, cannabinoids Urinalysis, 01/02/2025: Unremarkable CBC, 01/02/2025: Unremarkable CMP, 01/02/2025: Unremarkable Chest x-ray, 01/02/2025: Endotracheal tube and enteric catheter in satisfactory position CT head, 12/12/2022: No acute intracranial findings CT head, 01/02/2025: No acute intracranial abnormality MRI head, 12/14/2022: No acute infarct, intracranial hemorrhage, mass effect, or hydrocephalus MRI headache, 01/04/2025: Normal MRI findings of the brain vital signs Vital Sign Date Time Temp Pulse Resp B/P (MAP) Pulse Ox O2 Delivery O2 Flow Rate FiO2 01/04/25 20:30 99.1 69 16 99/54 (69) 100 210.4 01/04/25 20:06 30 01/04/25 20:00 Mechanical Ventilator+ Total Intake and Output 01/03/25 01/03/25 01/04/25 15:00 23:00 07:00 Intake Total 1646.358 ml 2241.850 ml 1880.528 ml Output Total 950 ml 2925 ml Balance 1646.358 ml 1291.850 ml -1044.472 ml medications Current Medications Medications Dose Ordered Sig/Monserrat Route Start Time Stop Time Status Last Admin Dose Admin Propofol 100 ml @ 2.454 mls/ hr Q24H IV 01/02/25 07:30 Cancel Propofol 100 ml @ 2.454 mls/ hr Q24H IV 01/02/25 08:00 01/04/25 13:56 7.362 MLS/HR Sodium Chloride 1,000 ml @ 120 mls/hr Q8H20M IV 01/02/25 08:00 01/04/25 13:15 120 MLS/HR Acetaminophen 650 mg Q6HP PRN PO 01/02/25 08:00 01/04/25 18:43 650 MG Levetiracetam 100 ml @ 400 mls/hr BID IV 01/02/25 22:00 01/04/25 09:43 400 MLS/HR Midazolam HCl 50 ml @ 1 mls/hr Q24H IV 01/02/25 08:45 01/04/25 19:25 8 MLS/HR Fentanyl Citrate 250 ml @ 2.5 mls/hr Q24H IV 01/02/25 09:00 01/04/25 17:21 20 MLS/HR Lorazepam 1 mg Q5MINP PRN IV 01/02/25 10:15 01/04/25 15:47 1 MG Pantoprazole Sodium 40 mg DAILY IV 01/03/25 10:00 01/04/25 09:42 40 MG Multivitamins/ Minerals 1 tab DAILY PO 01/03/25 10:00 01/04/25 09:43 1 TAB Norepinephrine Bitartrate 250 ml @ 3.75 mls/hr Q24H IV 01/02/25 11:15 01/02/25 12:06 3.75 MLS/HR Thiamine HCl 250 mg/Dextrose 52.5 ml @ 100 mls/hr DAILY IV 01/05/25 10:00 01/10/25 09:59 Folic Acid 1 mg/ Dextrose 50.2 ml @ 200.8 mls/ hr DAILY INJ 01/03/25 10:00 01/04/25 09:57 200.8 MLS/HR Ceftriaxone Sodium 50 ml @ 100 mls/hr DAILY@09 IV 01/03/25 09:00 01/08/25 08:59 01/04/25 09:00 100 MLS/HR Azithromycin 250 ml @ 125 mls/hr DAILY IV 01/03/25 10:00 01/08/25 09:59 01/04/25 09:43 125 MLS/HR Lacosamide 100 mg/ Sodium Chloride 110 ml @ 120 mls/hr BID IV 01/02/25 22:00 Cancel Lacosamide 100 mg/ Sodium Chloride 60 ml @ 120 mls/hr BID IV 01/02/25 22:00 01/04/25 11:32 120 MLS/HR Enteral Nutritional Formula 1,000 ml 40ML/HR GT 01/03/25 12:30 01/03/25 14:17 1,000 ML objective The patient is well-nourished and well-developed with no distress. The patient is intubated MENTAL STATUS: Subjective CRANIAL NERVES: Pupils are equal, round and reactive.There are corneal reflexes and doll's eyes phenomenon. No signs of facial weakness. There are gagging or coughing reflexes SENSATION: Nonresponsive to pain MOTOR: Normal tone in the upper and lower extremity. Normal muscle bulk. No fasciculations. No spontaneous extremity movement REFLEXES: Deep tendon reflexes are symmetrical. No pathological reflexes. CEREBELLAR/COORDINATION: Deferred GAIT/STATION: deferred. laboratory and microbiology Laboratory Tests 01/04/25 02:59 01/03/25 02:41 Test 01/04/25 02:59 Range/Units Serum Glucose 125 H 74-106 mg/dL Problem List Status epileptics Grand mal seizure, likely alcohol withdrawal seizure ? Alcoholism Assessment/Plan Monitoring Supportive treatment ICU care Stabilize vitals Respiratory support/vent management EEG Ativan for seizure breakthrough Increase the Keppra to 1500mg IV b.i.d. for now Vimpat 100 mg b.i.d. IV Resumed topiramate 100 mg b.i.d. later Ativan for seizure breakthrough Thiamine supplementation Folic acid supplementation GI prophylax Higher level care Re: EEG monitoring Follow up with his doctors on discharge This medical document was created using an electronic medical record system with [employer] dictation system. Although this document has been carefully reviewed, there may still be some phonetic and typographical errors. These areas are purely typographical due to imperfections of the software programs, and do not reflect any compromise in the patient's medical care. Prognosis poor, guarded Dietary Evaluation Review Comments: High protein peptide TF, Vital HP 245ml/hr, providing 94g protein 1080kcal and 9.3ml free water. if adding proofol 12.27ml/hr (324kcal) pt will be supported at 97%protein needs and 87% energy needs. will reassess when pt is off vent. Expected Outcomes/Goals: maintain ABW, Plan discussed with: Spouse, Other Critical Care Time(min): 40 JAX BEASLEY MD Jan 04, 2025 21:13
[2025-01-05] VITALS (106 sets, daily range): BP systolic 90–146; BP diastolic 50–98; PULSE 64–117; RESP 12–19; TEMP 97.9–101.5; O2SAT 98–100
[2025-01-05 03:19] LABS: Hematocrit 37.6 % (41.0-53.0); Hemoglobin 13.0 g/dL (13.5-17.5); Mean Corpuscular Hemoglobin 30.5 pg (28.0-32.0); Mean Corpuscular Volume 88.5 fL (80.0-100.0); Nucleated Red Blood Cells % 0.1 %
[2025-01-05 03:30] LABS: Anion Gap 7 (5-15); Carbon Dioxide 29 mmol/L (20-31); Chloride 105 mmol/L (98-107); Sodium 141 mmol/L (136-145)
[2025-01-05 03:36] LABS: Glucose 81 mg/dL (74-106)
[2025-01-05 03:38] LABS: BUN/Creatinine Ratio 8.5 (10.0-20.0); Blood Urea Nitrogen < 5 mg/dL (9-23); Calcium 8.6 mg/dL (8.7-10.4); Potassium 3.2 mmol/L (3.5-5.1)
[2025-01-05] MEDS: POTASSIUM CHL 20MEQ/100ML 100 ML IV SCH (04:36)
[2025-01-05 07:02] LABS: Base Excess 3.3 mmol/L (-2.0-3.0)
[2025-01-05] MEDS: THIAMINE INJ 250 MG in D5W 5% 50 ML IV SCH (09:47)
[2025-01-05] MEDS: levETIRAcetam 1500 mg/100ml 100 ML IV SCH (09:47)
--- NOTE | 2025-01-05 13:52 | DVHPN2 ---
Progress Note - Dictate Date Seen: Jan 05, 2025 Medical Necessity Reason Pt with a Central, PICC or Fol: Yes The following are medically ne: Puente Catheter vital signs Vital Sign Date Time Temp Pulse Resp B/P (MAP) Pulse Ox O2 Delivery O2 Flow Rate FiO2 01/05/25 12:15 98.1 65 16 92/52 (65) 100 208.6 01/05/25 12:00 30 01/05/25 12:00 Mechanical Ventilator+ Total Intake and Output 01/04/25 01/04/25 01/05/25 15:00 23:00 07:00 Intake Total 1469.415 ml 1442.896 ml 1662.528 ml Output Total 1675 ml 1975 ml Balance 1469.415 ml -232.104 ml -312.472 ml medications Current Medications Medications Dose Ordered Sig/Monserrat Route Start Time Stop Time Status Last Admin Dose Admin Propofol 100 ml @ 2.454 mls/ hr Q24H IV 01/02/25 07:30 Cancel Propofol 100 ml @ 2.454 mls/ hr Q24H IV 01/02/25 08:00 01/05/25 08:54 12.27 MLS/HR Sodium Chloride 1,000 ml @ 120 mls/hr Q8H20M IV 01/02/25 08:00 01/05/25 03:39 120 MLS/HR Acetaminophen 650 mg Q6HP PRN PO 01/02/25 08:00 01/04/25 18:43 650 MG Midazolam HCl 50 ml @ 1 mls/hr Q24H IV 01/02/25 08:45 01/05/25 07:06 15 MLS/HR Fentanyl Citrate 250 ml @ 2.5 mls/hr Q24H IV 01/02/25 09:00 01/05/25 05:33 20 MLS/HR Lorazepam 1 mg Q5MINP PRN IV 01/02/25 10:15 01/04/25 15:47 1 MG Pantoprazole Sodium 40 mg DAILY IV 01/03/25 10:00 01/05/25 09:54 40 MG Multivitamins/ Minerals 1 tab DAILY PO 01/03/25 10:00 01/05/25 09:56 1 TAB Norepinephrine Bitartrate 250 ml @ 3.75 mls/hr Q24H IV 01/02/25 11:15 01/02/25 12:06 3.75 MLS/HR Thiamine HCl 250 mg/Dextrose 52.5 ml @ 100 mls/hr DAILY IV 01/05/25 10:00 01/10/25 09:59 01/05/25 09:47 100 MLS/HR Folic Acid 1 mg/ Dextrose 50.2 ml @ 200.8 mls/ hr DAILY INJ 01/03/25 10:00 01/05/25 08:38 200.8 MLS/HR Ceftriaxone Sodium 50 ml @ 100 mls/hr DAILY@09 IV 01/03/25 09:00 01/08/25 08:59 01/05/25 08:37 100 MLS/HR Azithromycin 250 ml @ 125 mls/hr DAILY IV 01/03/25 10:00 01/08/25 09:59 01/05/25 09:57 125 MLS/HR Lacosamide 100 mg/ Sodium Chloride 110 ml @ 120 mls/hr BID IV 01/02/25 22:00 Cancel Lacosamide 100 mg/ Sodium Chloride 60 ml @ 120 mls/hr BID IV 01/02/25 22:00 01/05/25 09:57 120 MLS/HR Enteral Nutritional Formula 1,000 ml 40ML/HR GT 01/03/25 12:30 01/03/25 14:17 1,000 ML Levetiracetam 100 ml @ 400 mls/hr BID IV 01/05/25 10:00 01/05/25 09:47 400 MLS/HR laboratory and microbiology Laboratory Tests 01/05/25 02:34 Test 01/05/25 02:34 Range/Units Serum Glucose 81 74-106 mg/dL Assessment/Plan Impression Acute hypoxemic respiratory failure Hx of alcohol abuse Pneumonia Seizures Patient seen and examined in the ICU Events On mechanical ventilation S/p intubation for airway protection PEEP 5, FiO2 30% Breakthrough seizures reported, requires sedation Labs and imaging reviewed ABG reviewed Management Vent support Titrate to maintain sats 90% or above Sedation for vent synchrony Continue antibiotics F/u cultures Bronchodilators Monitor renal function Monitor electrolytes Supplement as needed Pressors as needed for hemodynamic support To maintain a mean arterial pressure of 65 mmHg Antiepileptics as ordered Will require HLOC transfer DVT prophylaxis Critical care time 35 minutes Dietary Evaluation Review Comments: High protein peptide TF, Vital HP 245ml/hr, providing 94g protein 1080kcal and 9.3ml free water. if adding proofol 12.27ml/hr (324kcal) pt will be supported at 97%protein needs and 87% energy needs. will reassess when pt is off vent. Expected Outcomes/Goals: maintain ABW, Plan discussed with: Other (Rn) ALFREDO DAY MD Jan 05, 2025 13:52
--- NOTE | 2025-01-05 14:07 | DVHDS2 ---
Discharge Summary Date of Admission Jan 02, 2025 at 07:52 Date of Discharge: Jan 05, 2025 Labs/Diagnostic Data: Laboratory Results Test 01/05/25 06:56 01/05/25 02:34 01/04/25 07:15 01/04/25 06:32 Blood Gas Specimen Type Arterial Blood Gas Sample Site Right radial Blood Gas Patient Temperature 37.0 Arterial Blood Date Drawn [id number] Arterial Blood pH 7.401 (7.350-7.450) Arterial Blood Partial Pressure CO2 47.6 mmHg (35.0-48.0) Arterial Blood Partial Pressure O2 119.7 mmHg (83.0-108.0) Arterial Blood HCO3 28.9 mmol/L (21.0-28.0) Arterial Blood Oxygen Saturation 98.2 % (94.0-98.0) Arterial Blood Base Excess 3.3 mmol/L (-2.0-3.0) Arterial Blood Oxyhemoglobin 97.7 % (94.0-98.0) Arterial Blood Carboxyhemoglobin 0.2 % (0.5-1.5) Arterial Blood Methemoglobin 0.3 % (0.0-1.5) Arjun Test Modified Blood Gas Total Hemoglobin 13.80 g/dL (13.5-17.5) Blood Gas Set Respiration Rate 16.0 Blood Gas Modality Vent - ac FiO2 % 30.0 Blood Gas Tidal Volume 450.0 Blood Gas PEEP or CPAP 5.0 White Blood Count 8.4 10^3/uL (4.4-10.8) Red Blood Count 4.25 10^6/uL (4.5-5.90) Hemoglobin 13.0 g/dL (13.5-17.5) Hematocrit 37.6 % (41.0-53.0) Mean Corpuscular Volume 88.5 fL (80.0-100.0) Mean Corpuscular Hemoglobin 30.5 pg (28.0-32.0) Mean Corpuscular Hemoglobin Concent 34.5 g/dL (32.0-36.0) Red Cell Distribution Width 12.9 % (11.8-14.3) Platelet Count 133 10^3/uL (140-450) Mean Platelet Volume 8.8 fL (6.9-10.8) Neutrophils (%) (Auto) 73.7 % (37.0-80.0) Lymphocytes (%) (Auto) 11.5 % (10.0-50.0) Monocytes (%) (Auto) 11.3 % (0.0-12.0) Eosinophils (%) (Auto) 3.2 % (0.0-7.0) Basophils (%) (Auto) 0.3 % (0.0-2.0) Neutrophils # (Auto) 6.2 10 ^3/uL (1.6-8.6) Lymphocytes # (Auto) 1.0 10 ^3/uL (0.4-5.4) Monocytes # (Auto) 1.0 10 ^3/uL (0-1.3) Eosinophils # (Auto) 0.3 10 ^3/uL (0-0.8) Basophils # (Auto) 0 10 ^3/uL (0-0.2) Nucleated Red Blood Cells 0.1 % Sodium Level 141 mmol/L (136-145) Potassium Level 3.2 mmol/L (3.5-5.1) Chloride Level 105 mmol/L (98-107) Carbon Dioxide Level 29 mmol/L (20-31) Anion Gap 7 (5-15) Blood Urea Nitrogen < 5 mg/dL (9-23) Creatinine 0.59 mg/dL (0.700-1.30) Glomerular Filtration Rate Calc 135 mL/min (>90) BUN/Creatinine Ratio 8.5 (10.0-20.0) Serum Glucose 81 mg/dL (74-106) Calcium Level 8.6 mg/dL (8.7-10.4) Blood Gas Spontaneous Rate 16 POC Glucose 96 mg/dl (70-106) Test 01/04/25 02:59 01/03/25 02:41 01/02/25 07:00 01/02/25 01:30 Lactic Acid Level 0.8 mmol/L (0.4-2.0) Phosphorus Level 2.3 mg/dL (2.4-5.1) Magnesium Level 1.7 mg/dL (1.6-2.6) Total Bilirubin 0.8 mg/dL (0.2-1.0) Aspartate Amino Transferase (AST) 16 U/L (13-40) Alanine Aminotransferase (ALT) 26 U/L (7-40) Alkaline Phosphatase 75 U/L (46-116) Total Protein 5.7 g/dL (5.7-8.2) Albumin 3.5 g/dL (3.2-4.8) Creatine Kinase 100 U/L (46-171) Urine Color Light-yellow (Yellow) Urine Clarity Clear (Clear) Urine pH 5.5 (5.0-9.0) Urine Specific [place] 1.012 (1.001-1.035) Urine Protein Negative (Negative) Urine Ketones Negative (Negative) Urine Blood Negative /uL (Negative) Urine Nitrite Negative (Negative) Urine Bilirubin Negative (Negative) Urine Urobilinogen Normal mg/dL (Negative) Urine Leukocyte Esterase Negative /uL (Negative) Urine RBC 1 /hpf (0 - 3) Urine Microscopic WBC < 1 /HPF (0-3) Urine Squamous Epithelial Cells None seen /hpf (<5) Urine Uric Acid Crystals Few /hpf (None Seen) Urine Bacteria None seen /hpf (None Seen) Urine Glucose Normal mg/dL (Normal) Urine Opiates Screen Neg (NEGATIVE) Urine Fentanyl Screen Neg (NEGATIVE) Urine Barbiturates Screen Neg (NEGATIVE) Urine Phencyclidine Screen Neg (NEGATIVE) Urine Amphetamines Screen Neg (NEGATIVE) Urine Benzodiazepines Screen Pos (NEGATIVE) Urine Cocaine Screen Neg (NEGATIVE) Urine Cannabinoids Screen Pos (NEGATIVE) Plasma/Serum Blood Alcohol 186.8 mg/dL (<10) Other Laboratory Tests 01/05/25 02:34 Brief Hx & Hospital Course: 29 yo M wth PUD, epilepsy, alcohol use, smoker admitted for status epilepticus, intubated in ED for airway protection, started on sedation. patient was stabilized in ICU, started with keppra and vimpat, empiric ceft and azithro, electrolyte replaced. patient was on minimal vent settings, started sedation vacation with agitation followed by GTC. EEG done. patient was difficult to titrate off sedation however has epilepsy with multiple meds. HLOC attempted for cEEG for status epilepticus. Condition at Discharge: Critical Final Diagnosis/Problems List status epilepticus, alcohol related sz vs alcohol withdrawal sz vs epilepsy acute hypoxic RF req mechanical vent distributive shock aspiration PNA? toxic metabolic encephalopathy PUD epilepsy alcohol use smoker cannot r/o Wernicke Discharge Disposition: Acute Care Facility Discharge Instruct/Medications Diet: Regular Activity: See Comment Scheduled Artificial Tear Solution (Artificial Tears), 1 DROP RIGHTEYE Q1HR Folic Acid (Folic Acid), 1 TAB PO BID, (Reported) Levetiracetam (Levetiracetam), 1 TAB PO BID, (Reported) Omeprazole (Omeprazole), 20 MG PO DAILY Pantoprazole Sodium Sesquihydr (Pantoprazole Sodium), 1 TAB PO DAILY, (Reported) Pantoprazole Sodium Sesquihydr (Pantoprazole Sodium), 40 MG PO BID Pantoprazole Sodium Sesquihydr (Protonix), 40 MG PO DAILY Prednisone (Prednisone), 60 MG PO DAILY Sucralfate (Carafate), 1 GM PO QIDACHS Scheduled PRN Chlordiazepoxide Hcl (Librium), 25 MG PO Q6HP PRN Dicyclomine Hcl (Bentyl Capsule), 2 CAP PO Q6HPRN PRN Hydrocodone-Acetaminophen (Hydrocodone Bitartrate/AC 5-325 mg), 1 TAB PO Q6HPRN PRN Ondansetron (Zofran), 1 TAB PO Q6HR PRN Ondansetron (Zofran), 4 MG PO Q8HP PRN Ondansetron (Zofran), 4 MG PO Q6HPRN PRN Ondansetron Odt 4MG Tab (Zofran Po), 4 MG PO Q6HPRN PRN Miscellaneous Medications Multiple Vitamin (Daily-Wanda Multivitamin), 1 TAB PO, (Reported) Ondansetron HCl (Ondansetron Hydrochloride), 1 TAB PO, (Reported) Durable Medical Equipment Eye Patches (Eye Patch), UNIT XX DAILY, (DME) Discharge Statement: "Patient was advised to return to the ER or call 911 if any headaches, dizziness, shortness of breath, chest pain, abdominal pain, bleeding, fevers, or worsening of medical condition. Patient was counseled about treatment plan, medications, possible side effects, patientverbalized understanding. All questions were answered to the best of my ability. This discharge took greater then 30 minutes in planning, reviewing documentation, counseling the patient, and discussing with other team members." ASSESSMENT ASSESSMENT Assessment status epilepticus acute hypoxic RF req qmech vent Date of Service: Jan 05, 2025 Billing Provider: VINICIUS CHOWDHURY MD Common Visit Codes: [id number] CARE 30-74 MIN VINICIUS CHOWDHURY MD Jan 05, 2025 14:07
--- NOTE | 2025-01-05 14:23 | PRN ---
Misceleneous Note Note Note called POC, informed that patient has acceptance [facility] bed [facility], but family decision to find closer hospital that will accept him. informed that cancelling the bed might result in delay of care should transfer not be approved for other hospital or if there were no beds available. family stated unde rstanding. VINICIUS CHOWDHURY MD Jan 05, 2025 14:23
--- NOTE | 2025-01-05 20:29 | DVHPN2 ---
Progress Note - Dictate Date Seen: Jan 05, 2025 Medical Necessity Reason Pt with a Central, PICC or Fol: Yes The following are medically ne: Puente Catheter Subjective Mr. Dilan Castorena is a 29 years old right-handed gentleman with a history of liver disease, peptic ulcer disease, alcoholism, the patient was brought to the [facility] on 01/02/25 with a chief, of seizure activity. I saw him on 12/13/2022 for status epileptics I have seen and examined the patient, talked to his nurse, he had 3 seizures over the last 24 hours He is intubated, nonresponsive to strong painful stimuli I have talked to , [facility] ICU doctor, the patient has been accepted Fentanyl 250 mcg/hour, propofol 40 mcg/minute, Versed 10 mg/hour Plasma alcohol, 12/12/2022: 175, 01/02/2025: 186.8 UDS, 12/13/2022: Benzo, cannabinoids, alcohol: 78 01/02/2025: Benzo, cannabinoids Urinalysis, 01/02/2025: Unremarkable CBC, 01/02/2025: Unremarkable CMP, 01/02/2025: Unremarkable Chest x-ray, 01/02/2025: Endotracheal tube and enteric catheter in satisfactory position CT head, 12/12/2022: No acute intracranial findings CT head, 01/02/2025: No acute intracranial abnormality MRI head, 12/14/2022: No acute infarct, intracranial hemorrhage, mass effect, or hydrocephalus MRI headache, 01/04/2025: Normal MRI findings of the brain vital signs Vital Sign Date Time Temp Pulse Resp B/P (MAP) Pulse Ox O2 Delivery O2 Flow Rate FiO2 01/05/25 18:45 99.0 73 16 110/63 (79) 100 210.2 01/05/25 18:31 Mechanical Ventilator+ 30 30 Total Intake and Output 01/04/25 01/04/25 01/05/25 15:00 23:00 07:00 Intake Total 1469.415 ml 1442.896 ml 1662.528 ml Output Total 1675 ml 1975 ml Balance 1469.415 ml -232.104 ml -312.472 ml medications Current Medications Medications Dose Ordered Sig/Monserrat Route Start Time Stop Time Status Last Admin Dose Admin Propofol 100 ml @ 2.454 mls/ hr Q24H IV 01/02/25 07:30 Cancel Propofol 100 ml @ 2.454 mls/ hr Q24H IV 01/02/25 08:00 01/05/25 17:32 12.27 MLS/HR Sodium Chloride 1,000 ml @ 120 mls/hr Q8H20M IV 01/02/25 08:00 01/05/25 15:17 120 MLS/HR Acetaminophen 650 mg Q6HP PRN PO 01/02/25 08:00 01/04/25 18:43 650 MG Midazolam HCl 50 ml @ 1 mls/hr Q24H IV 01/02/25 08:45 01/05/25 15:17 8 MLS/HR Fentanyl Citrate 250 ml @ 2.5 mls/hr Q24H IV 01/02/25 09:00 01/05/25 15:22 20 MLS/HR Lorazepam 1 mg Q5MINP PRN IV 01/02/25 10:15 01/05/25 20:18 1 MG Pantoprazole Sodium 40 mg DAILY IV 01/03/25 10:00 01/05/25 09:54 40 MG Multivitamins/ Minerals 1 tab DAILY PO 01/03/25 10:00 01/05/25 09:56 1 TAB Norepinephrine Bitartrate 250 ml @ 3.75 mls/hr Q24H IV 01/02/25 11:15 01/02/25 12:06 3.75 MLS/HR Thiamine HCl 250 mg/Dextrose 52.5 ml @ 100 mls/hr DAILY IV 01/05/25 10:00 01/10/25 09:59 01/05/25 09:47 100 MLS/HR Folic Acid 1 mg/ Dextrose 50.2 ml @ 200.8 mls/ hr DAILY INJ 01/03/25 10:00 01/05/25 08:38 200.8 MLS/HR Ceftriaxone Sodium 50 ml @ 100 mls/hr DAILY@09 IV 01/03/25 09:00 01/08/25 08:59 01/05/25 08:37 100 MLS/HR Azithromycin 250 ml @ 125 mls/hr DAILY IV 01/03/25 10:00 01/08/25 09:59 01/05/25 09:57 125 MLS/HR Lacosamide 100 mg/ Sodium Chloride 110 ml @ 120 mls/hr BID IV 01/02/25 22:00 Cancel Lacosamide 100 mg/ Sodium Chloride 60 ml @ 120 mls/hr BID IV 01/02/25 22:00 01/05/25 09:57 120 MLS/HR Enteral Nutritional Formula 1,000 ml 40ML/HR GT 01/03/25 12:30 01/03/25 14:17 1,000 ML Levetiracetam 100 ml @ 400 mls/hr BID IV 01/05/25 10:00 01/05/25 09:47 400 MLS/HR objective The patient is well-nourished and well-developed with no distress. The patient is intubated MENTAL STATUS: Subjective CRANIAL NERVES: Pupils are equal, round and reactive.There are corneal reflexes and doll's eyes phenomenon. No signs of facial weakness. There are gagging or coughing reflexes SENSATION: Nonresponsive to pain MOTOR: Normal tone in the upper and lower extremity. Normal muscle bulk. No fasciculations. No spontaneous extremity movement REFLEXES: Deep tendon reflexes are symmetrical. No pathological reflexes. CEREBELLAR/COORDINATION: Deferred GAIT/STATION: deferred. laboratory and microbiology Laboratory Tests 01/05/25 02:34 Test 01/05/25 02:34 Range/Units Serum Glucose 81 74-106 mg/dL Problem List Status epileptics Grand mal seizure, likely alcohol withdrawal seizure ? Alcoholism Assessment/Plan Monitoring Supportive treatment ICU care Stabilize vitals Respiratory support/vent management EEG Ativan for seizure breakthrough Keppra to 1500mg IV b.i.d. Vimpat 100 mg b.i.d. IV Resumed topiramate 100 mg b.i.d. later Ativan for seizure breakthrough Thiamine supplementation Folic acid supplementation GI prophylax Higher level care Re: EEG monitoring Follow up with his doctors on discharge This medical document was created using an electronic medical record system with [employer] dictation system. Although this document has been carefully reviewed, there may still be some phonetic and typographical errors. These areas are purely typographical due to imperfections of the software programs, and do not reflect any compromise in the patient's medical care. Prognosis Guarded Dietary Evaluation Review Comments: High protein peptide TF, Vital HP 245ml/hr, providing 94g protein 1080kcal and 9.3ml free water. if adding proofol 12.27ml/hr (324kcal) pt will be supported at 97%protein needs and 87% energy needs. will reassess when pt is off vent. Expected Outcomes/Goals: maintain ABW, Plan discussed with: Other Critical Care Time(min): 35 JAX BEASLEY MD Jan 05, 2025 20:29
[2025-01-06] VITALS (107 sets, daily range): BP systolic 88–148; BP diastolic 41–113; PULSE 64–116; RESP 14–16; TEMP 93–99.7; O2SAT 95–100
[2025-01-06 03:48] LABS: Chloride 102 mmol/L (98-107); Sodium 141 mmol/L (136-145)
[2025-01-06 03:49] LABS: Anion Gap 11 (5-15); Carbon Dioxide 28 mmol/L (20-31)
[2025-01-06 03:50] LABS: Calcium 8.8 mg/dL (8.7-10.4); Potassium 3.3 mmol/L (3.5-5.1)
[2025-01-06 03:54] LABS: Glucose 80 mg/dL (74-106)
[2025-01-06 03:56] LABS: Hematocrit 38.6 % (41.0-53.0); Hemoglobin 13.6 g/dL (13.5-17.5); Mean Corpuscular Hemoglobin 31.1 pg (28.0-32.0); Mean Corpuscular Volume 88.4 fL (80.0-100.0); Nucleated Red Blood Cells % 0.1 %
[2025-01-06 04:37] LABS: BUN/Creatinine Ratio 8.8 (10.0-20.0); Blood Urea Nitrogen < 5 mg/dL (9-23)
[2025-01-06] MEDS: POTASSIUM CHL 20MEQ/100ML 100 ML IV ONE (05:09)
--- NOTE | 2025-01-06 05:38 | DVH ---
CHEST RADIOGRAPH Indication: intubated Technique: Single frontal view of the chest was obtained COMPARISON: XY CHEST XRAY 1 VIEW on DOS: 01/03/25, XY CHEST XRAY 1 VIEW on DOS: 01/02/25, XY CHEST XRAY 1 VIEW on DOS: 01/02/25, XY CHEST PORTABLE on DOS: 11/19/22 FINDINGS: Lines and Tubes: Unchanged. Lungs: Clear Pleura: No effusion. No pneumothorax. Cardiomediastinal contours: Unremarkable Bones: Unremarkable IMPRESSION: 1. No acute disease. 2. Lines and tubes unchanged.
[2025-01-06 07:09] LABS: Base Excess 2.2 mmol/L (-2.0-3.0)
--- NOTE | 2025-01-06 11:06 | DVHPN2 ---
Progress Note - Dictate Date Seen: Jan 06, 2025 Medical Necessity Reason Pt with a Central, PICC or Fol: Yes The following are medically ne: Puente Catheter Subjective Mr. Dilan Castorena is a 29 years old right-handed gentleman with a history of liver disease, peptic ulcer disease, alcoholism, the patient was brought to the [facility] on 01/02/25 with a chief, of seizure activity. I saw him on 12/13/2022 for status epileptics I have seen and examined the patient, talked to his nurse, he had seizures over the last night, in that the patient was stiff with shivering like activity He is intubated, nonresponsive to strong painful stimuli Fentanyl 20 mcg/hour, propofol 30 mcg/minute, Versed 12 mg/hour Plasma alcohol, 12/12/2022: 175, 01/02/2025: 186.8 UDS, 12/13/2022: Benzo, cannabinoids, alcohol: 78 01/02/2025: Benzo, cannabinoids Urinalysis, 01/02/2025: Unremarkable CBC, 01/02/2025: Unremarkable CMP, 01/02/2025: Unremarkable Chest x-ray, 01/02/2025: Endotracheal tube and enteric catheter in satisfactory position CT head, 12/12/2022: No acute intracranial findings CT head, 01/02/2025: No acute intracranial abnormality MRI head, 12/14/2022: No acute infarct, intracranial hemorrhage, mass effect, or hydrocephalus MRI headache, 01/04/2025: Normal MRI findings of the brain vital signs Vital Sign Date Time Temp Pulse Resp B/P (MAP) Pulse Ox O2 Delivery O2 Flow Rate FiO2 01/06/25 10:29 77 16 98/48 (65) 97 30 01/06/25 08:30 97.7 207.9 01/06/25 08:00 Mechanical Ventilator+ Total Intake and Output 01/05/25 01/05/25 01/06/25 15:00 23:00 07:00 Intake Total 1904.86 ml 2178.258 ml 1719.516 ml Output Total 2050 ml 2000 ml Balance 1904.86 ml 128.258 ml -280.484 ml medications Current Medications Medications Dose Ordered Sig/Monserrat Route Start Time Stop Time Status Last Admin Dose Admin Propofol 100 ml @ 2.454 mls/ hr Q24H IV 01/02/25 07:30 Cancel Propofol 100 ml @ 2.454 mls/ hr Q24H IV 01/02/25 08:00 01/06/25 08:15 19.632 MLS/HR Sodium Chloride 1,000 ml @ 120 mls/hr Q8H20M IV 01/02/25 08:00 01/06/25 03:40 120 MLS/HR Acetaminophen 650 mg Q6HP PRN PO 01/02/25 08:00 01/04/25 18:43 650 MG Midazolam HCl 50 ml @ 1 mls/hr Q24H IV 01/02/25 08:45 01/06/25 08:51 12 MLS/HR Fentanyl Citrate 250 ml @ 2.5 mls/hr Q24H IV 01/02/25 09:00 01/06/25 01:03 25 MLS/HR Lorazepam 1 mg Q5MINP PRN IV 01/02/25 10:15 01/05/25 22:26 1 MG Pantoprazole Sodium 40 mg DAILY IV 01/03/25 10:00 01/05/25 09:54 40 MG Multivitamins/ Minerals 1 tab DAILY PO 01/03/25 10:00 01/05/25 09:56 1 TAB Norepinephrine Bitartrate 250 ml @ 3.75 mls/hr Q24H IV 01/02/25 11:15 01/02/25 12:06 3.75 MLS/HR Thiamine HCl 250 mg/Dextrose 52.5 ml @ 100 mls/hr DAILY IV 01/05/25 10:00 01/10/25 09:59 01/06/25 09:22 100 MLS/HR Folic Acid 1 mg/ Dextrose 50.2 ml @ 200.8 mls/ hr DAILY INJ 01/03/25 10:00 01/06/25 09:22 200.8 MLS/HR Ceftriaxone Sodium 50 ml @ 100 mls/hr DAILY@09 IV 01/03/25 09:00 01/08/25 08:59 01/06/25 08:47 100 MLS/HR Azithromycin 250 ml @ 125 mls/hr DAILY IV 01/03/25 10:00 01/08/25 09:59 01/05/25 09:57 125 MLS/HR Lacosamide 100 mg/ Sodium Chloride 110 ml @ 120 mls/hr BID IV 01/02/25 22:00 Cancel Lacosamide 100 mg/ Sodium Chloride 60 ml @ 120 mls/hr BID IV 01/02/25 22:00 01/05/25 20:52 120 MLS/HR Enteral Nutritional Formula 1,000 ml 40ML/HR GT 01/03/25 12:30 01/06/25 02:19 1,000 ML Levetiracetam 100 ml @ 400 mls/hr BID IV 01/05/25 10:00 01/06/25 09:45 400 MLS/HR objective The patient is well-nourished and well-developed with no distress. The patient is intubated MENTAL STATUS: Subjective CRANIAL NERVES: Pupils are equal, round and reactive.There are corneal reflexes and doll's eyes phenomenon. No signs of facial weakness. There are gagging or coughing reflexes SENSATION: Nonresponsive to pain MOTOR: Normal tone in the upper and lower extremity. Normal muscle bulk. No fasciculations. No spontaneous extremity movement REFLEXES: Deep tendon reflexes are symmetrical. No pathological reflexes. CEREBELLAR/COORDINATION: Deferred GAIT/STATION: deferred. laboratory and microbiology Laboratory Tests 01/06/25 02:48 Test 01/06/25 02:48 Range/Units Serum Glucose 80 74-106 mg/dL Problem List Status epileptics Grand mal seizure, likely alcohol withdrawal seizure ? Alcoholism Assessment/Plan Monitoring Supportive treatment ICU care Stabilize vitals Respiratory support/vent management Dilantin level EEG Ativan for seizure breakthrough Dilantin 1000 mg followed by 100 mg Q 8 hours IV Keppra 1500mg IV b.i.d. Vimpat 100 mg b.i.d. IV Resumed topiramate 100 mg b.i.d. later Ativan for seizure breakthrough Thiamine supplementation Folic acid supplementation GI prophylax Higher level care Re: EEG monitoring Follow up with his doctors on discharge This medical document was created using an electronic medical record system with [employer] dictation system. Although this document has been carefully reviewed, there may still be some phonetic and typographical errors. These areas are purely typographical due to imperfections of the software programs, and do not reflect any compromise in the patient's medical care. Prognosis poor, guarded Dietary Evaluation Review Comments: High protein peptide TF, Vital HP 245ml/hr, providing 94g protein 1080kcal and 9.3ml free water. if adding proofol 12.27ml/hr (324kcal) pt will be supported at 97%protein needs and 87% energy needs. will reassess when pt is off vent. Expected Outcomes/Goals: maintain ABW, Plan discussed with: Other Critical Care Time(min): 35 JAX BEASLEY MD Jan 06, 2025 11:06
[2025-01-06] MEDS: PHENYTOIN IV DILANTIN 1,000 MG in SODIUM CHL 0.9% 250 ML IV ONE (13:49)
[2025-01-06] MEDS ORDERED: PHENYTOIN SODIUM 50 MG/ML 2ML VIAL IV SCH (14:00)
--- NOTE | 2025-01-06 14:49 | DVHPN2 ---
Assessment/Plan Assessment/Plan ICU note 29 yo M wth PUD, epilepsy, alcohol use, smoker admitted for status epilepticus, intubated in ED for airway protection, started on sedation. for OC transfer, pending [facility] bed. no sedation vacation for now. physical exam sedated, intubated on mechanical vent pinpoint pupil neck supple + gag no corneal mechanical breath sounds abdomen soft slightly distended no LE edema no clonus, no Babinski labs ekg imaging reviewed assessment and plan status epilepticus, alcohol related sz vs alcohol withdrawal sz vs epilepsy acute hypoxic RF req mechanical vent distributive shock aspiration PNA? toxic metabolic encephalopathy PUD epilepsy alcohol use smoker cannot r/o Wernicke c/w mechanical vent c/w pressor support map goal >65 c/w sedation, RAAS goal -2 (taper off versed slowly) can add precedex will consider phenobarb if unable to taper off meds ceft azithro iv hydration high dose thiamine folic acid neuro consult EEG r/o non convulsive seizure strict i/o Keppra, vimpat switch fem TLC lines ETT NGT bazzi LIJ TLC keep K 4 Mg 2 Ph 3 diet TF dvt ppx lovenox GI ppx protonix full code prognosis poor condition critical 45 minutes crit care time spent Plan discussed with: Spouse My Orders Orders - VINICIUS CHOWDHURY MD Procedure Category Date Status Time Abg W/ Co-Ox RT 01/06/25 Logged 05:35 Date of Service: Jan 06, 2025 Billing Provider: VINICIUS CHOWDHURY MD Common Visit Codes: [id number] CARE 30-74 MIN VINICIUS CHOWDHURY MD Jan 06, 2025 14:49
[2025-01-06] MEDS: FUROSEMIDE 40 MG/4 ML VIAL IV ONE (15:41)
[2025-01-06] MEDS: PHENYTOIN SODIUM 50 MG/ML 2ML VIAL IV SCH (20:40)
--- NOTE | 2025-01-06 23:58 | DVHEEG2 ---
Neurology EEG Procedural Note Procedural Note EXAM DATE: 01/02/2025 REFERRING DOCTOR: Dr. Beasley TECHNIQUE: Eighteen channels of EEG, 2 channels of EOG, and 1 channel of EKG were recorded using the International 10/20 system. CLINICAL DATA: The patient was referred for an EEG evaluation for the evidence of seizure disorder. MEDICATIONS: See chart BACKGROUND ACTIVITY: This record showed diffuse 11-12 Hz rhythmic low-amplitude waveform over both hemispheres, that was reactive to external stimuli ACTIVATION: Hyperventilation: Not done Photic Stimulation: Not done Sleep: Nonresponsiveness IMPRESSION: This is a remarkably abnormal EEG, this EEG seen in severe cerebral dysfunction due to metabolic/hypoxic encephalopathy or medication effects, please correlate clinically The EKG channel showed a regular heart rate of 66/[place] [address] JAX BEASLEY MD Jan 06, 2025 23:58
[2025-01-07] VITALS (109 sets, daily range): BP systolic 90–158; BP diastolic 50–103; PULSE 75–112; RESP 15–22; TEMP 96.6–101.7; O2SAT 94–100
--- NOTE | 2025-01-07 | DVHEEG2 ---
Neurology EEG Procedural Note Procedural Note EXAM DATE: 01/06/2025 REFERRING DOCTOR: Dr. Beasley TECHNIQUE: Eighteen channels of EEG, 2 channels of EOG, and 1 channel of EKG were recorded using the International 10/20 system. CLINICAL DATA: The patient was referred for an EEG evaluation for the evidence of seizure disorder. MEDICATIONS: See chart BACKGROUND ACTIVITY: There was artifacts in the recording. This record showed diffuse low amplitude theta and delta activity over both hemispheres, that was reactive to external stimuli ACTIVATION: Hyperventilation: Not done Photic Stimulation: Not done Sleep: Nonresponsiveness IMPRESSION: This is a remarkably abnormal EEG, this EEG seen in severe cerebral dysfunction due to metabolic/hypoxic encephalopathy or medication effects, please correlate clinically The EKG channel showed a regular heart rate of 90/[place] [address] JAX BEASLEY MD Jan 07, 2025 00:00
[2025-01-07 03:32] LABS: Hematocrit 37.4 % (41.0-53.0); Hemoglobin 12.9 g/dL (13.5-17.5); Mean Corpuscular Hemoglobin 30.4 pg (28.0-32.0); Mean Corpuscular Volume 88.1 fL (80.0-100.0); Nucleated Red Blood Cells % 0.1 %
[2025-01-07 03:37] LABS: Chloride 101 mmol/L (98-107); Sodium 141 mmol/L (136-145)
[2025-01-07 03:38] LABS: Anion Gap 6 (5-15); Calcium 8.7 mg/dL (8.7-10.4); Carbon Dioxide 34 mmol/L (20-31); Potassium 3.5 mmol/L (3.5-5.1)
[2025-01-07 03:43] LABS: BUN/Creatinine Ratio 10.3 (10.0-20.0); Glucose 98 mg/dL (74-106)
[2025-01-07 03:44] LABS: Blood Urea Nitrogen 7 mg/dL (9-23)
[2025-01-07 07:30] LABS: Base Excess 5.1 mmol/L (-2.0-3.0)
--- NOTE | 2025-01-07 11:01 | DVHPN2 ---
Progress Note - Dictate Date Seen: Jan 07, 2025 Medical Necessity Reason Pt with a Central, PICC or Fol: Yes The following are medically ne: Puente Catheter Subjective Mr. Dilan Castorena is a 29 years old right-handed gentleman with a history of liver disease, peptic ulcer disease, alcoholism, the patient was brought to the [facility] on 01/02/25 with a chief, of seizure activity. I saw him on 12/13/2022 for status epileptics I have seen and examined the patient, talked to his nurse, no seizure reported overnight He is intubated, nonresponsive to strong painful stimuli Fentanyl 200 mcg/hour, propofol 30 mcg/minute, Versed 12 mg/hour Dilantin, 01/05/25: 9.5 Plasma alcohol, 12/12/2022: 175, 01/02/2025: 186.8 UDS, 12/13/2022: Benzo, cannabinoids, alcohol: 78 01/02/2025: Benzo, cannabinoids Urinalysis, 01/02/2025: Unremarkable CBC, 01/02/2025: Unremarkable CMP, 01/02/2025: Unremarkable EEG, 01/12/2025: Remarkable abnormal EEG EEG, 01/06/2025: Remarkably abnormal EEG Chest x-ray, 01/02/2025: Endotracheal tube and enteric catheter in satisfactory position CT head, 12/12/2022: No acute intracranial findings CT head, 01/02/2025: No acute intracranial abnormality MRI head, 12/14/2022: No acute infarct, intracranial hemorrhage, mass effect, or hydrocephalus MRI headache, 01/04/2025: Normal MRI findings of the brain vital signs Vital Sign Date Time Temp Pulse Resp B/P (MAP) Pulse Ox O2 Delivery O2 Flow Rate FiO2 01/07/25 10:30 97.5 84 16 107/60 (76) 99 207.5 01/07/25 10:00 Mechanical Ventilator+ 30 30 Total Intake and Output 01/06/25 01/06/25 01/07/25 15:00 23:00 07:00 Intake Total 1894.176 ml 901.792 ml 583.792 ml Output Total 3225 ml 550 ml Balance 1894.176 ml -2323.208 ml 33.792 ml medications Current Medications Medications Dose Ordered Sig/Monserrat Route Start Time Stop Time Status Last Admin Dose Admin Propofol 100 ml @ 2.454 mls/ hr Q24H IV 01/02/25 07:30 Cancel Propofol 100 ml @ 2.454 mls/ hr Q24H IV 01/02/25 08:00 01/07/25 00:39 14.724 MLS/HR Acetaminophen 650 mg Q6HP PRN PO 01/02/25 08:00 01/04/25 18:43 650 MG Midazolam HCl 50 ml @ 1 mls/hr Q24H IV 01/02/25 08:45 01/07/25 09:45 12 MLS/HR Fentanyl Citrate 250 ml @ 2.5 mls/hr Q24H IV 01/02/25 09:00 01/07/25 09:54 20 MLS/HR Lorazepam 1 mg Q5MINP PRN IV 01/02/25 10:15 01/06/25 16:48 1 MG Pantoprazole Sodium 40 mg DAILY IV 01/03/25 10:00 01/07/25 10:12 40 MG Multivitamins/ Minerals 1 tab DAILY PO 01/03/25 10:00 01/07/25 10:12 1 TAB Norepinephrine Bitartrate 250 ml @ 3.75 mls/hr Q24H IV 01/02/25 11:15 01/02/25 12:06 3.75 MLS/HR Thiamine HCl 250 mg/Dextrose 52.5 ml @ 100 mls/hr DAILY IV 01/05/25 10:00 01/10/25 09:59 01/07/25 09:32 100 MLS/HR Folic Acid 1 mg/ Dextrose 50.2 ml @ 200.8 mls/ hr DAILY INJ 01/03/25 10:00 01/07/25 10:17 200.8 MLS/HR Ceftriaxone Sodium 50 ml @ 100 mls/hr DAILY@09 IV 01/03/25 09:00 01/08/25 08:59 01/07/25 08:33 100 MLS/HR Azithromycin 250 ml @ 125 mls/hr DAILY IV 01/03/25 10:00 01/08/25 09:59 01/07/25 10:12 125 MLS/HR Lacosamide 100 mg/ Sodium Chloride 110 ml @ 120 mls/hr BID IV 01/02/25 22:00 Cancel Lacosamide 100 mg/ Sodium Chloride 60 ml @ 120 mls/hr BID IV 01/02/25 22:00 01/07/25 09:31 120 MLS/HR Enteral Nutritional Formula 1,000 ml 40ML/HR GT 01/03/25 12:30 01/06/25 02:19 1,000 ML Levetiracetam 100 ml @ 400 mls/hr BID IV 01/05/25 10:00 01/07/25 10:12 400 MLS/HR Phenytoin Sodium 100 mg Q8HR IV 01/06/25 22:00 01/07/25 05:04 100 MG objective The patient is well-nourished and well-developed with no distress. The patient is intubated MENTAL STATUS: Subjective CRANIAL NERVES: Pupils are equal, round and reactive.There are corneal reflexes and doll's eyes phenomenon. No signs of facial weakness. There are gagging or coughing reflexes SENSATION: Nonresponsive to pain MOTOR: Normal tone in the upper and lower extremity. Normal muscle bulk. No fasciculations. No spontaneous extremity movement REFLEXES: Deep tendon reflexes are symmetrical. No pathological reflexes. CEREBELLAR/COORDINATION: Deferred GAIT/STATION: deferred. laboratory and microbiology Laboratory Tests 01/07/25 02:52 Test 01/07/25 02:52 Range/Units Serum Glucose 98 74-106 mg/dL Problem List Status epileptics Grand mal seizure, likely alcohol withdrawal seizure ? Alcoholism Assessment/Plan Monitoring Supportive treatment ICU care Stabilize vitals Respiratory support/vent management Ativan for seizure breakthrough Dilantin 100 mg Q 8 hours IV Keppra 1500mg IV b.i.d. Vimpat 100 mg b.i.d. IV Resumed topiramate 100 mg b.i.d. later Ativan for seizure breakthrough Thiamine supplementation Folic acid supplementation GI prophylax Higher level care Re: EEG monitoring Follow up with his doctors on discharge This medical document was created using an electronic medical record system with [employer] dictation system. Although this document has been carefully reviewed, there may still be some phonetic and typographical errors. These areas are purely typographical due to imperfections of the software programs, and do not reflect any compromise in the patient's medical care. Prognosis Guarded Dietary Evaluation Review Comments: High protein peptide TF, Vital HP 245ml/hr, providing 94g protein 1080kcal and 9.3ml free water. if adding proofol 12.27ml/hr (324kcal) pt will be supported at 97%protein needs and 87% energy needs. will reassess when pt is off vent. Expected Outcomes/Goals: maintain ABW, Plan discussed with: Other Critical Care Time(min): 30 JAX BEASLEY MD Jan 07, 2025 11:01
--- NOTE | 2025-01-07 13:22 | DVHPN2 ---
Assessment/Plan Assessment/Plan ICU note 29 yo M wth PUD, epilepsy, alcohol use, smoker admitted for status epilepticus, intubated in ED for airway protection, started on sedation. pending HLOC transfer. green urine likely from prop or phenytoin. check trig tomorrow physical exam sedated, intubated on mechanical vent pinpoint pupil neck supple + gag no corneal mechanical breath sounds abdomen soft slightly distended no LE edema no clonus, no Babinski labs ekg imaging reviewed assessment and plan status epilepticus, alcohol related sz vs alcohol withdrawal sz vs epilepsy acute hypoxic RF req mechanical vent distributive shock aspiration PNA? toxic metabolic encephalopathy PUD epilepsy alcohol use smoker cannot r/o Wernicke c/w mechanical vent c/w pressor support map goal >65 c/w sedation, RAAS goal -2 (taper off versed slowly) can add precedex will consider phenobarb if unable to taper off meds ceft azithro iv hydration high dose thiamine folic acid neuro consult EEG r/o non convulsive seizure strict i/o Keppra, vimpat switch fem TLC lines ETT NGT bazzi LIJ TLC keep K 4 Mg 2 Ph 3 diet TF dvt ppx lovenox GI ppx protonix full code prognosis poor condition critical 45 minutes crit care time spent Plan discussed with: Spouse My Orders Orders - VINICIUS CHOWDHURY MD Procedure Category Date Status Time Abg W/ Co-Ox RT 01/07/25 Logged 06:00 Date of Service: Jan 07, 2025 Billing Provider: VINICIUS CHOWDHURY MD Common Visit Codes: [id number] CARE 30-74 MIN VINICIUS CHOWDHURY MD Jan 07, 2025 13:22
[2025-01-07] MEDS: SENNA 8.6 MG TAB PO SCH (21:38)
[2025-01-08] VITALS (75 sets, daily range): BP systolic 94–159; BP diastolic 55–104; PULSE 67–117; RESP 13–22; TEMP 98.1–101.8; O2SAT 96–100
[2025-01-08 03:30] LABS: Hematocrit 36.5 % (41.0-53.0); Hemoglobin 12.8 g/dL (13.5-17.5); Mean Corpuscular Hemoglobin 30.5 pg (28.0-32.0); Mean Corpuscular Volume 87.4 fL (80.0-100.0); Nucleated Red Blood Cells % 0.1 %
[2025-01-08 03:37] LABS: Anion Gap 7 (5-15); Calcium 8.9 mg/dL (8.7-10.4); Chloride 100 mmol/L (98-107); Potassium 3.5 mmol/L (3.5-5.1); Sodium 140 mmol/L (136-145)
[2025-01-08 03:42] LABS: Carbon Dioxide 33 mmol/L (20-31); Glucose 108 mg/dL (74-106)
[2025-01-08 03:43] LABS: BUN/Creatinine Ratio 14.5 (10.0-20.0); Magnesium 1.9 mg/dL (1.6-2.6)
[2025-01-08 03:45] LABS: Blood Urea Nitrogen 9 mg/dL (9-23)
[2025-01-08 04:03] LABS: Triglycerides 160 mg/dL (< 150)
[2025-01-08 07:04] LABS: Base Excess 3.0 mmol/L (-2.0-3.0)
--- NOTE | 2025-01-08 10:52 | DVHPN2 ---
Progress Note - Dictate Date Seen: Jan 08, 2025 Medical Necessity Reason Pt with a Central, PICC or Fol: Yes The following are medically ne: Puente Catheter Subjective Mr. Dilan Castorena is a 29 years old right-handed gentleman with a history of liver disease, peptic ulcer disease, alcoholism, the patient was brought to the [facility] on 01/02/25 with a chief, of seizure activity. I saw him on 12/13/2022 for status epileptics I have seen and examined the patient, talked to his nurse, he had some shivering when he was spiking temperature, otherwise no seizure activity He is intubated, nonresponsive to strong painful stimuli Social service input appreciated T-max, 101.3 Fentanyl 250 mcg/hour, propofol 30 mcg/minute, Versed 4 mg/hour Dilantin, 01/05/25: 9.5 Plasma alcohol, 12/12/2022: 175, 01/02/2025: 186.8 UDS, 12/13/2022: Benzo, cannabinoids, alcohol: 78 01/02/2025: Benzo, cannabinoids Urinalysis, 01/02/2025: Unremarkable CBC, 01/02/2025: Unremarkable WBC/HB/PLT/MCV, 01/08/2025: 7.3/12.8/205/87.4 CMP, 01/02/2025: Unremarkable HCO3, 01/06/2025: 28, 01/07/2025: 34, 01/08/2025: 33 EEG, 01/12/2025: Remarkable abnormal EEG EEG, 01/06/2025: Remarkably abnormal EEG Chest x-ray, 01/02/2025: Endotracheal tube and enteric catheter in satisfactory position CT head, 12/12/2022: No acute intracranial findings CT head, 01/02/2025: No acute intracranial abnormality MRI head, 12/14/2022: No acute infarct, intracranial hemorrhage, mass effect, or hydrocephalus MRI headache, 01/04/2025: Normal MRI findings of the brain vital signs Vital Sign Date Time Temp Pulse Resp B/P (MAP) Pulse Ox O2 Delivery O2 Flow Rate FiO2 01/08/25 09:34 82 16 114/70 (85) 100 30 01/08/25 06:30 101.1 214.0 01/08/25 06:00 Mechanical Ventilator+ Total Intake and Output 01/07/25 01/07/25 01/08/25 15:00 23:00 07:00 Intake Total 883.992 ml 656.292 ml 714.568 ml Output Total 1375 ml 1300 ml Balance 883.992 ml -718.708 ml -585.432 ml medications Current Medications Medications Dose Ordered Sig/Monserrat Route Start Time Stop Time Status Last Admin Dose Admin Propofol 100 ml @ 2.454 mls/ hr Q24H IV 01/02/25 07:30 Cancel Propofol 100 ml @ 2.454 mls/ hr Q24H IV 01/02/25 08:00 01/08/25 05:26 14.724 MLS/HR Acetaminophen 650 mg Q6HP PRN PO 01/02/25 08:00 01/08/25 05:20 650 MG Midazolam HCl 50 ml @ 1 mls/hr Q24H IV 01/02/25 08:45 01/08/25 09:18 14 MLS/HR Fentanyl Citrate 250 ml @ 2.5 mls/hr Q24H IV 01/02/25 09:00 01/08/25 08:26 25 MLS/HR Lorazepam 1 mg Q5MINP PRN IV 01/02/25 10:15 01/08/25 05:00 1 MG Pantoprazole Sodium 40 mg DAILY IV 01/03/25 10:00 01/08/25 09:56 40 MG Multivitamins/ Minerals 1 tab DAILY PO 01/03/25 10:00 01/08/25 09:56 1 TAB Norepinephrine Bitartrate 250 ml @ 3.75 mls/hr Q24H IV 01/02/25 11:15 01/02/25 12:06 3.75 MLS/HR Thiamine HCl 250 mg/Dextrose 52.5 ml @ 100 mls/hr DAILY IV 01/05/25 10:00 01/10/25 09:59 01/08/25 10:11 100 MLS/HR Folic Acid 1 mg/ Dextrose 50.2 ml @ 200.8 mls/ hr DAILY INJ 01/03/25 10:00 01/08/25 09:57 200.8 MLS/HR Lacosamide 100 mg/ Sodium Chloride 110 ml @ 120 mls/hr BID IV 01/02/25 22:00 Cancel Lacosamide 100 mg/ Sodium Chloride 60 ml @ 120 mls/hr BID IV 01/02/25 22:00 01/07/25 21:39 120 MLS/HR Enteral Nutritional Formula 1,000 ml 40ML/HR GT 01/03/25 12:30 01/06/25 02:19 1,000 ML Levetiracetam 100 ml @ 400 mls/hr BID IV 01/05/25 10:00 01/07/25 21:39 400 MLS/HR Phenytoin Sodium 100 mg Q8HR IV 01/06/25 22:00 01/08/25 05:58 100 MG Polyethylene Glycol 17 gm DAILY PO 01/08/25 10:00 Sennosides 8.6 mg HS PO 01/07/25 22:00 01/07/25 21:38 8.6 MG objective The patient is well-nourished and well-developed with no distress. The patient is intubated MENTAL STATUS: Subjective CRANIAL NERVES: Pupils are equal, round and reactive.There are corneal reflexes and doll's eyes phenomenon. No signs of facial weakness. There are gagging or coughing reflexes SENSATION: Nonresponsive to pain MOTOR: Normal tone in the upper and lower extremity. Normal muscle bulk. No fasciculations. No spontaneous extremity movement REFLEXES: Deep tendon reflexes are symmetrical. No pathological reflexes. CEREBELLAR/COORDINATION: Deferred GAIT/STATION: deferred. laboratory and microbiology Laboratory Tests 01/08/25 02:45 Test 01/08/25 02:45 Range/Units Serum Glucose 108 H 74-106 mg/dL Problem List Status epileptics Grand mal seizure, likely alcohol withdrawal seizure ? Alcoholism Assessment/Plan Monitoring Supportive treatment ICU care Stabilize vitals Respiratory support/vent management Ativan for seizure breakthrough Dilantin 100 mg Q 8 hours IV Keppra 1500mg IV b.i.d. Vimpat 100 mg b.i.d. IV Resumed topiramate 100 mg b.i.d. later Ativan for seizure breakthrough Thiamine supplementation Folic acid supplementation GI prophylax Higher level care Re: EEG monitoring Follow up with his doctors on discharge This medical document was created using an electronic medical record system with [employer] dictation system. Although this document has been carefully reviewed, there may still be some phonetic and typographical errors. These areas are purely typographical due to imperfections of the software programs, and do not reflect any compromise in the patient's medical care. Prognosis guarded Dietary Evaluation Review Comments: High protein peptide TF, Vital HP 245ml/hr, providing 94g protein 1080kcal and 9.3ml free water. if adding proofol 12.27ml/hr (324kcal) pt will be supported at 97%protein needs and 87% energy needs. will reassess when pt is off vent. Expected Outcomes/Goals: maintain ABW, Plan discussed with: Other Critical Care Time(min): 30 JAX BEASLEY MD Jan 08, 2025 10:52
[2025-01-08] MEDS: POTASSIUM CHL 20MEQ/100ML 100 ML IV SCH (14:40)
[2025-01-08] MEDS: POLYETHYLENE GLYCOL 17 GM PWDR PO SCH (14:44)
--- NOTE | 2025-01-08 15:16 | DVHPN2 ---
Assessment/Plan Assessment/Plan ICU note 29 yo M wth PUD, epilepsy, alcohol use, smoker admitted for status epilepticus, intubated in ED for airway protection, started on sedation. have bed in [facility], for transfer. new fever. panculture physical exam sedated, intubated on mechanical vent pinpoint pupil neck supple + gag no corneal mechanical breath sounds abdomen soft slightly distended no LE edema no clonus, no Babinski labs ekg imaging reviewed assessment and plan status epilepticus, alcohol related sz vs alcohol withdrawal sz vs epilepsy acute hypoxic RF req mechanical vent distributive shock aspiration PNA? toxic metabolic encephalopathy PUD epilepsy alcohol use smoker cannot r/o Wernicke c/w mechanical vent c/w pressor support map goal >65 c/w sedation, RAAS goal -2 (taper off versed slowly) can add precedex will consider phenobarb if unable to taper off meds ceft azithro iv hydration high dose thiamine folic acid neuro consult EEG r/o non convulsive seizure strict i/o Keppra, vimpat switch fem TLC lines ETT NGT bazzi LIJ TLC keep K 4 Mg 2 Ph 3 diet TF dvt ppx lovenox GI ppx protonix full code prognosis poor condition critical 35 minutes crit care time spent Plan discussed with: Spouse My Orders Orders - VINICIUS CHOWDHURY MD Procedure Category Date Status Time Polyethylene Glycol PHA 01/08/25 In Process 17g Powder (Miralax 10:00 Senna Pod Tablet PHA 01/07/25 In Process (Senokot Tablet) 22:00 Abg W/ Co-Ox RT 01/08/25 Logged 06:00 Mrsa Screen OSVALDO 01/08/25 Logged 13:25 Potassium Chl PHA 01/08/25 In Process 20meq/100ml 13:45 Urine Bacterial OSVALDO 01/08/25 Uncollected Culture 13:40 Blood Culture OSVALDO 01/08/25 In Process 13:40 Imaging Transfer ORDERS 01/08/25 Transmitted Request 14:24 Date of Service: Jan 08, 2025 Billing Provider: VINICIUS CHOWDHURY MD Common Visit Codes: [id number] CARE 30-74 MIN VINICIUS CHOWDHURY MD Jan 08, 2025 15:16
== END 2025-01-08 17:47 | disposition short-term general hospital (02) | DRG 53 ==
LOC: ER 01:01 → EDBD 01:01 → EDUNIT# 01:01 → OVERFLOW 07:52 → ICU WEST 09:34
PROVIDERS: ADMIT Student in an Organized Health Care Education/Training Program; ATTEND Student in an Organized Health Care Education/Training Program
PROC: 5A1955Z Respiratory Ventilation, Greater than 96 Consecutive Hours (ICD-10-PCS; principal; 2025-01-02)
PROC: 0BH17EZ Insertion of Endotracheal Airway into Trachea, Via Natural or Artificial Opening (ICD-10-PCS; 2025-01-02)
PROC: 02HV33Z Insertion of Infusion Device into Superior Vena Cava, Percutaneous Approach (ICD-10-PCS; 2025-01-02)
DX: G40.401 Other generalized epilepsy and epileptic syndromes, not intractable, with status epilepticus (principal); J96.01 Acute respiratory failure with hypoxia; J69.0 Pneumonitis due to inhalation of food and vomit; R57.8 Other shock; F10.229 Alcohol dependence with intoxication, unspecified; F10.239 Alcohol dependence with withdrawal, unspecified; K27.9 Peptic ulcer, site unspecified, unspecified as acute or chronic, without hemorrhage or perforation; E87.6 Hypokalemia; F17.200 Nicotine dependence, unspecified, uncomplicated; G47.10 Hypersomnia, unspecified; F12.90 Cannabis use, unspecified, uncomplicated; Z90.49 Acquired absence of other specified parts of digestive tract; Z88.8 Allergy status to other drugs, medicaments and biological substances; Z83.3 Family history of diabetes mellitus; Z82.49 Family history of ischemic heart disease and other diseases of the circulatory system; Z82.61 Family history of arthritis; Z83.42 Family history of familial hypercholesterolemia; E51.2 Wernicke's encephalopathy
CPT/HCPCS: 31500; 36415; 36556; 36600; 70450; 70551; 71045; 80048; 80053; 80185; 80307; 80320; 81001; 82550; 82805; 82962; 83605; 83735; 84075; 84100; 84132; 84478; 85025; 87040; 87070; 87077; 87081; 87086; 87205; 94003; 95819; 96361; 96365; 99291; C9254; G0378; J2250; J2470; J2704; J3480; J7060